=== PATIENT | male | born 1980 | race Caucasian/White ===

== ENCOUNTER 2016-12-23 10:05 | Outpatient (CLI) | payer OTHER ==
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
== END 2016-12-23 10:06 | disposition home or self-care (01) ==
LOC: TBSIIMAG 10:05
PROVIDERS: ATTEND Physician Assistant
DX: M54.9 Dorsalgia, unspecified (principal); S32.009A Unspecified fracture of unspecified lumbar vertebra, initial encounter for closed fracture; Z95.2 Presence of prosthetic heart valve
CPT/HCPCS: 72100

== ENCOUNTER 2017-02-18 14:22 | Outpatient (CLI) | payer OTHER ==
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
== END 2017-02-18 14:23 | disposition home or self-care (01) ==
LOC: TBSIIMAG 14:22
PROVIDERS: ATTEND Neurological Surgery
DX: S32.010D Wedge compression fracture of first lumbar vertebra, subsequent encounter for fracture with routine healing (principal); S32.020D Wedge compression fracture of second lumbar vertebra, subsequent encounter for fracture with routine healing
CPT/HCPCS: 72100

== ENCOUNTER 2018-04-16 10:28 | Inpatient (IN) | payer OTHER ==
[2018-04-16] MEDS ORDERED: PROPOFOL 0 ML ONE (10:35)
[2018-04-16] MEDS ORDERED: Propofol 1,000 MG/100 ML VIAL IV ONE (10:37)
[2018-04-16] MEDS ORDERED: fentaNYL Citrate/PF 2,000 MCG in Sodium Chloride 0.9% 60 ML IV SCH (10:40)
[2018-04-16 10:48] LABS: Lavender RECEIVED; Red RECEIVED
[2018-04-16 11:02] LABS: Actual Bicarbonate (HCO3a) 14.6 mEq/L (22-28); Analyzer IN Cardio ER; Base Excess (BEa) -11.2 mEq/L (-2.0 to +3.0); CO2 Tension 31.9 mmHg (35.0-45.0); Calcium, Ionized 1.09 mmol/L (1.12-1.30); Carboxyhemoglobin (COHb) 0.3 gm% (0.0-3.0); Hemoglobin (Hb) 7.6 g/dL (14.0-18.0); O2 Tension (PaO2) 102.2 mmHg (80.0-100.0); Potassium - ABG Lab 4.36 mmol/L (3.70-5.30); pH, Arterial 7.28 (7.35-7.45)
[2018-04-16] MEDS ORDERED: Lorazepam 2 MG/ML VIAL ONE ×2 (11:05→11:15)
[2018-04-16] MEDS ORDERED: Pantoprazole 40 MG VIAL ONE (11:05)
[2018-04-16 11:09] LABS: ALV-art Gradient 178.775 (0-20); Puncture Site RFA
--- NOTE | 2018-04-16 11:13 | RAD ---
PORTABLE CHEST: HISTORY: Intubation. FINDINGS: Heart size is enlarged. There are postop sternotomy change seen. The endotracheal tube is present. The tip is at the level of the kat, directed into the right mainstem bronchus. It needs to be re tracted slightly. The pulmonary vessels are engorged with some increased perihilar markings, suggest ing some element of edema. NG tube is below the hemidiaphragm. IMPRESSION: 1. Cardiomegaly with pulmonary vascular engorgement and findings suggesting some element of edema. 2. Postoperative sternotomy change and valve replacement. 3. Endotracheal tube directed into the proximal right mainstem bronchus. This needs to be retracted slightly. POS: [facility]
[2018-04-16] MEDS ORDERED: levETIRAcetam In NaCl (Iso-Os) 1,000 MG in Premix Bag 1 BAG IVPB SCH (11:30)
[2018-04-16] MEDS ORDERED: levETIRAcetam 500 MG/100 ML PREMIX BAG ONE (11:46)
[2018-04-16 11:54] LABS: PTT 97.9 SEC (22.9-36.1); Prothrombin Time 75.6 SEC (12.0-14.7)
[2018-04-16 11:57] LABS: INR-International Normal Ratio 9.4
[2018-04-16] MEDS ORDERED: HUM PROTHROMBIN CPLX IV SCH (12:00)
[2018-04-16] MEDS ORDERED: ADMIXTURE FEE IV SCH (12:00)
[2018-04-16] MEDS ORDERED: [UNRECOGNIZED DRUG - OTHER] IV SCH (12:00)
[2018-04-16] MEDS ORDERED: Phytonadione 10 MG/ML AMP SLOW IVP SCH (12:00)
[2018-04-16 12:07] LABS: CKMB 3.2 ng/mL (0-6.6)
[2018-04-16 12:07] LABS: Acetaminophen Less than 6.0 mcg/mL (10.0-30.0); Alcohol Less than 10 mg/dL (Less than 10); Salicylate Less than 8.0 mg/dL (15.0-30.0)
[2018-04-16 12:23] LABS: Cocaine Metabolite Screen Not Detected (NotDetected); Medtox Reader # READER 4; Methamphetamine Not Detected (NotDetected); Opiate Screen Detected (NotDetected); Phencyclidine (PCP) Not Detected (NotDetected); THC/Cannabinoid Screen Not Detected (NotDetected)
[2018-04-16 12:24] LABS: Amphetamine Detected (NotDetected); Barbiturates Screen Not Detected (NotDetected); Benzodiazepine Screen Not Detected (NotDetected); Medtox Control Line Valid? VALID (VALID); Methadone Not Detected (NotDetected); Oxycodone Screen Not Detected (NotDetected); Tricyclic Screen Not Detected (NotDetected)
--- NOTE | 2018-04-16 13:15 | CT ---
CT HEAD NONCONTRAST: CLINICAL HISTORY: Endocarditis. The patient is anticoagulated. Seizure activity is reported. COMPARISON: 08/25/2016 FINDINGS: There is an acute parenchymal hemorrhage centered at the posterior right temporal lobe and at the occ ipital lobe, with cortical and subcortical distribution and underlying vasogenic edema. There is dif fuse subarachnoid hemorrhage. A mild component of intraventricular hemorrhage is seen, layering with in the occipital horns. No significant midline shift. There are foci of white matter hypoattenuatio n of the bilateral cerebral hemispheres, likely gliosis. Additional punctate sites of parenchymal hy perdensity indicate additional micro-hemorrhages. There is vasogenic edema at the left frontal lobe with cortically based hemorrhage demonstrated. There is a cavitary lacunar infarction of the left th alamus, which has developed since the prior exam. IMPRESSION: Multifocal parenchymal hemorrhage with vasogenic edema, as well as diffuse subarachnoid, and intraven tricular hemorrhage. Findings favor septic emboli, given the patient's history, along with anticoagu lated state. Given the degree of parenchymal hemorrhage and edema, recommend neurosurgical evaluatio n for further care. Short-term imaging followup is also warranted. Telephone call to ER physician, Violeta Roberts M.D., was placed at 1240 hours, 04/16/2018. CODE CR POS: [facility]
--- NOTE | 2018-04-16 13:19 | CT ---
ABDOMEN AND PELVIS CT WITH IV CONTRAST: Entered contrast not administered per ordering physician request which limits evaluation of the bowel . INDICATION: GI bleed with leukocytosis and altered mental status. FINDINGS: There are dense areas of airspace consolidation containing air bronchograms of the bilateral lower lo bes with surrounding alveolar and interstitial density. Punctate nodularity is also seen within the imaged inferior pulmonary parenchyma, nonspecific and incompletely assessed. A prominent degree of s treak artifact emanates from a valvular prosthesis of the mitral valve region. There is a traversing enteric catheter partially visualized coursing to the lateral left mid abdomen. The bowel is not re liably evaluated without enteric contrast administration. Abnormal increased density along the right iliac chain is present suggestive of hematoma with adjacent moderate free pelvic fluid. There is pa tient motion which also distorts the bowel. Portions of the unopacified underdistended colon do sugg est wall prominence and, therefore, the possibility of colitis cannot be excluded on the basis of thi s exam. There are overlying prominent inguinal lymph nodes, right greater than left. Mild fullness of each renal collecting system is seen. There is generalized mild heterogeneity of the bilateral re nal parenchyma, although there is prominent streak artifact of the abdomen which does limit sensitivi ty of the evaluation. There is marked lobularity of the spleen which overall has increased in volume , nonspecific. abdominal aorta is normal in caliber. The urinary bladder contains a Beckett catheter with intraluminal air density. Fat stranding of the pelvis is present adjacent the above-described density about the right iliac vasculature suggestive of edema/hematoma. Focal lucency is seen within the L2 vertebral body. There is mild superior end plate irregularity of L1. IMPRESSION: 1. Prominent bibasilar densities containing air bronchograms favoring sequelae from aspiration pneum onitis. There is punctate nodularity at the imaged lower pulmonary parenchyma. Recommend continued followup in this regard. 2. Heterogeneity of the kidneys. The possibility of pyelonephritis or alternatively sequelae from e mbolic phenomenon with subsequent small infarcts not excluded. Correlate clinically. 3. Moderate-sized hematoma of the right iliac vasculature with adjacent pelvic fat stranding and mod erate free pelvic fluid. Correlate for recent vascular access or alternatively spontaneous hematoma. 4. Inguinal adenopathy, right greater than left. 5. Additional details are described above. POS: [facility]
[2018-04-16] MEDS ORDERED: Acetaminophen 325 MG Suppository ONE (13:37)
--- NOTE | 2018-04-16 13:58 | CON ---
DATE OF CONSULTATION: HISTORY OF PRESENT ILLNESS: Mr. Cleveland is a 37-year-old man on a transfer from [place] for altered mental status, sepsis, and likely GI bleed. He has a history of seizure disorder, methamphetamine use, and cardiac vegetations, with bilateral [id number] amputations. Neurosurgery was consulted for CT of the head after repeated seizure activity was witnessed, that reveals diffuse superficial subarachnoid hemorrhage with areas of punctate intracerebral hemorrhage as well as the more focal area of larger intraparenchymal hemorrhage in the right occipital lobe and left frontal lobe. There is also evidence of left occipital parietal subdural hematoma, very thin depth. He is reported to have an INR of 9 and is known to be on Coumadin for history of cardiac vegetations. This is very much likely the reason for his hemorrhages and also likely at least partially the cause of his tachycardia and seizure activity. He has already been loaded on Keppra and already been reversed. INR repeat is pending. The patient at bedside, is in the middle of receiving a central line, so I am unable to obtain a neurologic examination. ER physician states the patient was spontaneously moving all four extremities, but not to command and was not interactive. He then was intubated for threatened airway. Neurosurgery's recommendation is that of correction of his coagulopathy drug induced with no surgical intervention. We will repeat a head CT later this evening, but other than that, he will need extensive medical care per primary team's recommendations. Job ID: [id number]
[2018-04-16] MEDS ORDERED: Piperacillin/Tazobactam 3.375 GM VIAL ONE (14:06)
[2018-04-16 14:20] LABS: INR-International Normal Ratio 2.9
[2018-04-16] MEDS ORDERED: ISOVUE-370 76%-LOCM 1 ML ONE (14:50)
[2018-04-16 14:55] LABS: Hemoglobin 9.8 g/dL (14.0-18.0); Mean Corpuscular HGB CONC 33.4 g/dL (32.0-36.0); Mean Corpuscular Hemoglobin 28.3 pg (27.0-31.0); Mean Corpuscular Volume 84.9 fL (78.0-98.0); Mean Platelet Volume 8.8 fL (7.4-10.4); Platelet Count 146 thou/uL (130-400); RBC Distribution Width 14.3 % (11.5-14.5); Red Blood Cell (RBC) Count 3.47 mill/uL (4.70-6.10); White Blood Cell (WBC) Count 31.9 thou/uL (4.8-10.8)
[2018-04-16] MEDS ORDERED: Multivitamins, Adult 10 ML, Thiamine HCl 100 MG, Folic Acid 1 MG in Dextrose 5 %-0.45 %... IV SCH (15:00)
[2018-04-16 15:08] LABS: Anion Gap 15 mmol/L (10-20); BUN (Urea Nitrogen) 28 mg/dL (8.9-20.6); Calc. Creatinine Clearance 0 mL/min (70-130); Calcium 7.4 mg/dL (7.8-10.44); Carbon Dioxide 14 mmol/L (22-29); Chloride 108 mmol/L (98-107); Estimated GFR-MDRD 75; Glucose 196 mg/dL (70-105); Magnesium 1.5 mg/dL (1.6-2.6); Phosphorus 3.6 mg/dL (2.3-4.7); Potassium 4.2 mmol/L (3.5-5.1); Sodium 133 mmol/L (136-145)
[2018-04-16] MEDS ORDERED: Cefepime 2 GM in Sodium Chloride 0.9% 100 ML IVPB SCH ×2 (15:15→22:00)
[2018-04-16 15:17] LABS: Band 53 % (5-11); MDiff Complete? YES; Metamyelocyte 1 % (0-0); Myelocyte 1 % (0-0); Neutrophil 45 % (42-75); Platelet Morphology Comment Appears Adequate
[2018-04-16] MEDS ORDERED: SYSTANE 3.5 GM TUBE EA EYE PRN (15:33)
[2018-04-16] MEDS ORDERED: Norepinephrine 8 MG/0.9% NS 250 ML IVPB PRN (15:33)
[2018-04-16 15:39] LABS: Actual Bicarbonate (HCO3a) 13.4 mEq/L (22-28); Analyzer IN Cardio ER; Base Excess (BEa) -9.2 mEq/L (-2.0 to +3.0); Calcium, Ionized 1.11 mmol/L (1.12-1.30); Carboxyhemoglobin (COHb) 0.2 gm% (0.0-3.0); Hemoglobin (Hb) 10.1 g/dL (14.0-18.0); O2 Tension (PaO2) 101.4 mmHg (80.0-100.0); Potassium - ABG Lab 4.18 mmol/L (3.70-5.30); pH, Arterial 7.43 (7.35-7.45)
[2018-04-16 15:40] LABS: CO2 Tension 20.5 mmHg (35.0-45.0)
[2018-04-16 15:41] LABS: ALV-art Gradient 94.005 (0-20); Puncture Site RBA
[2018-04-16] MEDS ORDERED: ABX IVPB PRN (15:42)
[2018-04-16] MEDS ORDERED: Ventilator Sedation Protocol 1 EACH FS SCH (15:45)
[2018-04-16 15:47] LABS: Lactic Acid 1.3 mmol/L (0.5-2.2)
[2018-04-16] MEDS ORDERED: Lorazepam 2 MG/ML VIAL SLOW IVP PRN (15:57)
[2018-04-16] MEDS ORDERED: DISCONTINUE PREVIOUS NARCOTIC PAIN MEDICATIONS AND BENZODIAZEPINES FS SCH (15:57)
[2018-04-16] MEDS ORDERED: Propofol BOLUS 1,000 MG/100 ML VIAL IV PRN (15:57)
[2018-04-16] MEDS ORDERED: Morphine 2 MG/ML SYRINGE SLOW IVP PRN (15:57)
[2018-04-16] MEDS ORDERED: Fentanyl BOLUS 250 ML IVPB PRN (15:57)
--- NOTE | 2018-04-16 16:21 | CON ---
DATE OF CONSULTATION: 04/16/2018 SERVICE: Pulmonary Medicine. REASON FOR CONSULT: ICU patient. HISTORY OF PRESENT ILLNESS: The patient is a 37-year-old white male with past medical history significant for IV drug abuse. He had a remote episode of endocarditis several years ago. Because of this, he ended up being put on multiple pressors. The pressors actually could cause ischemia to his bilateral lower extremities and ended up with bilateral lower extremity amputations below the knees. For the endocarditis, he had to have his aortic valve replaced. Ultimately, he was subsequently discharged from the hospital, and had a protracted recovery. Eventually, he got back to some stable constant state. On this occasion, he presented to an Outside Hospital Emergency Department. He was having some seizures. He was subsequently transitioned here. He was intubated because his respiratory rates were in the 40s. No history can be obtained from the patient himself. He lives alone. PAST MEDICAL HISTORY: 1. History of endocarditis. 2. Polysubstance drug abuse. 3. Chronic low back pain. 4. Attention deficit disorder. PAST SURGICAL HISTORY: 1. Aortic valve replacement with mechanical valve. 2. Below-knee amputations, bilateral. FAMILY HISTORY: Noncontributory. SOCIAL HISTORY: He uses alcohol, illicit drugs, and tobacco products. He has previously been positive for opiates (this is likely a prescription), amphetamines, cannabinoids, and benzodiazepines. ALLERGIES: NO KNOWN DRUG ALLERGIES. MEDICATIONS: List of his inpatient medications was reviewed. Several updates were made. REVIEW OF SYSTEMS: Cannot be obtained as the patient is currently intubated and sedated. PHYSICAL EXAMINATION: VITAL SIGNS: Temperature 101, pulse 120, respirations 32, and saturation 100% on 40% FiO2. HEENT: Normocephalic and atraumatic. Sclerae are white. Conjunctivae are pink. Oral mucosa is moist without lesions. He is profusely diaphoretic. HEART: Tachycardiac. Regular. LUNGS: Excellent air entry. There is no prolonged expiratory phase or wheezing appreciated. ABDOMEN: Soft. It is fairly firm. There is no rebound or guarding noted. Bowel sounds are absent. GENITOURINARY: Beckett catheter in place. NEUROLOGIC: This cannot be evaluated well because of the patient's encephalopathy, and requirements for sedating medications. He does have pupils that are equal, round, and reactive. He has been witnessed to move everything based on what I am told. MUSCULOSKELETAL: No cyanosis or clubbing. There is no pitting anywhere. He has bilateral below-knee amputations. LABORATORY DATA: WBC 32, hemoglobin 9.8, and platelets 146,000 and downtrending. Band count is 53%. INR 2.9. PH of 7.28, pCO2 of 32, and pO2 of 102 corresponding to a saturation of 96%. Creatinine 1.1 and downtrending, BUN 28, anion gap 15, bicarb 14, and sodium 133. Phosphorus 3.6. Troponin 0.074. Liver function studies are essentially unremarkable except for an alkaline phosphatase that is minimally elevated. CK 117. Initial lactate 6.2. Urine drug screen is positive for amphetamine and opiates. Cultures are currently pending. IMAGING DATA: 1. Echocardiogram demonstrates a 20% ejection fraction. The left atrium is moderately dilated. Mechanical aortic valve is noted. There is mitral regurgitation, which is mild. Vegetation cannot be excluded on the basis of this exam. 2. CT of the brain demonstrates multifocal parenchymal hemorrhage with vasogenic edema as well as diffuse subarachnoid and intraventricular hemorrhage. Findings favor septic emboli. 3. CT of the abdomen and pelvis demonstrates bibasilar densities containing air bronchograms consistent with pneumonitis. Punctate nodularity in the pulmonary parenchyma, heterogeneous liver lesions, and possible pyelonephritis. Hematoma of the right iliac vasculature with adjacent fat stranding. Inguinal adenopathy, right greater than left. ASSESSMENT: 1. Severe sepsis, secondary to suspected recurrent endocarditis. 2. History of IV drug abuse. 3. Acute kidney injury. 4. Disseminated intravascular coagulation, suspected. 5. Seizure disorder. 6. Multisystem organ dysfunction. 7. History of mechanical aortic valve. DISCUSSION AND PLAN: We will put the patient on empiric antibiotics that should cross the blood brain barrier. Once his INR is down, an LP will need to be considered. We will trend lactate through time. The patient will be followed neurologically. If there is any significant deterioration in condition, we will get a stat CT of the head. That being said, if all goes well from a neurologic perspective, we will simply repeat one tomorrow morning. I will get a DIC panel and a peripheral smear. This patient is critically ill. There is a very good chance that he will not be surviving this hospital stay. Multiple adjustments have been made to the ventilator. Pulmonary/Critical Care will continue to follow along. CRITICAL CARE TIME: 30 minutes. Job ID: [id number] MTDD
--- NOTE | 2018-04-16 16:42 | RAD ---
SUPINE PORTABLE CHEST: Date: 04/16/18 HISTORY: Sepsis. ICU follow-up. COMPARISON: Film from earlier today. FINDINGS: ET tube has been retracted and is now above kat. NG tube remains in place. Central line has been p laced and tip overlies the right atrium. There is left basilar atelectasis and/or infiltrate. Mild pe rihilar haziness may represent mild edema. Mild vascular prominence. Postop sternotomy change. IMPRESSION: Left basilar atelectasis and/or infiltrate and perihilar haziness. POS: [facility]
[2018-04-16] MEDS ORDERED: Pantoprazole 40 MG in Sodium Chloride 0.9% 10 ML IVP SCH (16:45)
[2018-04-16 17:15] LABS: Bilirubin Negative (Negative); Blood, Urine Large (Negative); Clarity CLEAR (Clear); Glucose, Urine (Dipstick) 250 mg/dL (Negative); Leukocyte Negative (Negative); Nitrite Negative (Negative); Protein, Urine (Dipstick) Trace mg/dL (Neg-Trace); Specific Gravity, Urine 1.036 (1.002-1.036); Urobilinogen 0.2 mg/dL (0.2-1.0); pH, Urine 5.5 (5.0-9.0)
[2018-04-16 17:19] LABS: Bacteria/HPF None Seen HPF (None Seen); Hyaline Casts/LPF 0-3 HYALINE CAST LPF (0-3 Hyaline); Pathc Cast-AUWi Flag 0.87 (0-2.49); RBC/HPF GREATER THAN 50-TNTC HPF (0-3); Squamous Epithelial 0-3 HPF (0-3)
[2018-04-16] MEDS: Ampicillin 2 GM in Sodium Chloride 0.9% 100 ML IVPB SCH ×2 (17:21→20:52)
[2018-04-16] MEDS: Meropenem 2 GM in Sodium Chloride 0.9% 100 ML IVPB SCH (17:21)
[2018-04-16 17:22] LABS: Renal Epithelial None Seen HPF (0-3); Transitional Epithelial NONE SEEN HPF (0-3)
[2018-04-16 18:13] LABS: Hemoglobin 9.6 g/dL (14.0-18.0); Mean Corpuscular HGB CONC 32.4 g/dL (32.0-36.0); Mean Corpuscular Volume 86.5 fL (78.0-98.0); Mean Platelet Volume 9.2 fL (7.4-10.4); Platelet Count 150 thou/uL (130-400); RBC Distribution Width 14.4 % (11.5-14.5); Red Blood Cell (RBC) Count 3.44 mill/uL (4.70-6.10)
[2018-04-16 18:18] LABS: Fibrinogen 482 mg/dL (253-463)
[2018-04-16 18:19] LABS: D-Dimer Test 0.63 *mcg/mL (0.27-0.43); PTT 64.6 SEC (22.9-36.1); Prothrombin Time 50.8 SEC (12.0-14.7)
[2018-04-16 18:23] LABS: INR-International Normal Ratio 5.6
[2018-04-16 18:32] LABS: FSP-Qualitative Normal (Normal)
[2018-04-16 18:34] LABS: ALT (SGPT) 13 U/L (8-55); AST (SGOT) 28 U/L (5-34); Albumin 2.5 g/dL (3.5-5.0); Alkaline Phosphatase 94 U/L (40-150); Anion Gap 15 mmol/L (10-20); Anisocytosis SLIGHT = 6-15 cells (100X) (0-5/hpf); BUN (Urea Nitrogen) 24 mg/dL (8.9-20.6); Band 29 % (5-11); Bilirubin, Total 0.8 mg/dL (0.2-1.2); Calc. Creatinine Clearance 79 mL/min (70-130); Calcium 7.7 mg/dL (7.8-10.44); Carbon Dioxide 15 mmol/L (22-29); Chloride 109 mmol/L (98-107); Estimated GFR-MDRD 79; Globulin 2.8 g/dL (2.4-3.5); Glucose 194 mg/dL (70-105); Lymphocytes 2 % (21-51); MDiff Complete? YES; Metamyelocyte 1 % (0-0); Monocytes 1 % (0-10); Neutrophil 67 % (42-75); Platelet Morphology Comment Appears Adequate; Potassium 4.2 mmol/L (3.5-5.1); Protein, Total 5.3 g/dL (6.0-8.3); Sodium 135 mmol/L (136-145)
--- NOTE | 2018-04-16 18:52 | CON ---
DATE OF CONSULTATION: 04/16/2018 REASON FOR CONSULT: GI bleeding. HISTORY OF PRESENT ILLNESS: Mr. Cristian Cleveland is a 37-year-old who is admitted to this hospital in transfer from [place], re-presented this morning and brought by EMS. Apparently, the mother states he was found down in his house with incontinent stool and feces. He was felt to have a GI bleed, given 2 units of blood, some Rocephin and an IV placed and was transferred here. Apparently, per the nurse, the patient began seizing on the way here was given Ativan, here was intubated on arrival and given seizure medication. Here, he has been given 3 more units of O-negative blood. His INR from 8:40 came back greater than 150 and his PTT was greater than 239. He was given Kcentra. At 11:36, his INR was 9.4. Unfortunately, his INR is down to 2.9 at 12:55. Other eventful event here is he was given 3 L of fluid when he came in. He was given 3 units of blood and Kcentra. He has been given vancomycin, Rocephin, and Zosyn. He did have blood cultures drawn, but those were apparently drawn after the antibiotics were given in [place]. His pH on arrival was 7.43 at 7:10, 7.28 at 10:50. Lactic acid 6.2. Albumin is 3.2, protein 7. CK 117. He has not had a followup H and H since his blood transfusions. The nurse notes looking at his NG tube, less than 100 mL out and he has had no bowel movements here. The family states that he lives alone. He had endocarditis about 3 or 4 years ago apparently at this hospital and was ultimately transferred to [place], where he ended up with bilateral BKAs secondary to that infection and replacement of both his aortic and mitral valve they report. He is dependent on narcotic pain medications. He does continue to drink alcohol. They are not sure how much, but think it is significant and when asked about drug use, they are not certain but they suspect in fact one thing they noted when asked directly that they figured he probably did use IV drugs. PAST MEDICAL HISTORY: Chronic low back pain, ADD. PAST SURGICAL HISTORY: 1. Bilateral ureteral implant at [facility] as an . 2. Prior endocarditis. 3. Prior septic emboli to the spleen causing it to need to be removed. 4. BKA. MEDICATIONS: At home, apparently takes fentanyl for pain. He takes ADD medications. He takes sleep aids. He takes antianxiety pills. None of those are here with him. Present medications: 1. Protonix. 2. Zosyn. 3. Vancomycin. 4. Rocephin. 5. Vitamin K which has been given. 6. Levetiracetam. 7. Keppra. 8. Ativan. ALLERGIES: NONE KNOWN. SOCIAL HISTORY: Positive for drugs and alcohol. PHYSICAL EXAMINATION: VITAL SIGNS: Pulse in the 130s continuously. Blood pressure is 110-120 over 80s. SKIN: He is diaphoretic and pale. Conjunctivae and sclerae are pale. There is no icterus. Skin is clammy to the touch and is diaphoretic from his face down to his chest. NEUROLOGIC: He is nonresponsive, hyperreflexic on exam. LUNGS: Clear. HEART: Sinus tachycardia. No murmurs or mechanical sounds could be heard. EXTREMITIES: Reveal BKAs. I see no overt splinter hemorrhages in his fingers, but he has some petechiae. LABORATORY DATA: At 8:40, [place] white count was [address], hemoglobin of 6.4, MCV of 78, and platelet count of 214. INR as per HPI, presently 2.9. Chemistries as per HPI. Toxicology positive for opiates, positive for amphetamine, negative for salicylates, negative for acetaminophen, alcohol less than 10. ASSESSMENT: 1. This 37-year-old gentleman who came in, I have been asked to see regard to some melena, apparently found down at home with that and also has a little bit of return of old blood from his OG tube. He presented with a hemoglobin around 5 at an outside facility, it was 6.4 on arrival here after 2 units of blood at the outside facility. He has received 3 units of blood since then. He has had no overt bleeding since arrival here. He was found on unclear how much bleeding he was having prior to arrival here. He has not had any bleeding before per the family. His INR was undetectable on arrival, however. This has been subsequently being worked and being corrected. He seems stable from a bleeding standpoint. He was started on a PPI. He has multiple risk factors for reason for having ulcers. He does have a normal platelet count and does not appear to have portal hypertension. However, I suspect bleeding is mostly related to severe coagulopathy. 2. Shock on arrival. This seems to have probably been more related to septic shock than hemorrhagic, but it could be a combination of both. I say this patient likely still has gross shivering fever, leukocytosis, and acidosis and not showing any signs of active bleeding and has had good urine output of over 1 L since being here going against hemorrhagic shock. He has been cultured. Unfortunately antibiotics were started with Rocephin before cultures were obtained there the nurse tells me. He has had endocarditis before resulting in severe septicemia, splenectomy, and BKAs. 3. Seizures on arrival, respiratory failure on arrival. The family does note he has a history of seizures in the past. He denies any history of alcohol withdrawals. 4. History of drug use including IV. RECOMMENDATIONS: 1. IV Protonix drip. 2. Vitamin K doses for three days. 3. Banana bag daily. 4. I have called Dr. Aparicio of Critical Care to come and evaluate the patient emergently as he was on critical care holding down here. 5. I have asked the nurse to stat repeat H and H, BMP, magnesium, calcium, phosphorus, and ABG. 6. At this time without any active bleeding and sepsis, we are going to hold off on endoscopy. We will follow him closely with you. If there are signs of active bleeding, I want to get his INR reversed. We can consider emergent endoscopy. Job ID: [id number]
[2018-04-16 20:08] LABS: Lactic Acid 1.2 mmol/L (0.5-2.2)
--- NOTE | 2018-04-16 20:50 | CT ---
BRAIN CT WITHOUT IV CONTRAST 04/16/18 HISTORY: Followup extensive intracranial hemorrhage. There are again noted to be extensive bilateral heterogeneous intracranial hemorrhages including suba rachnoid hemorrhage and extensive intraparenchymal hemorrhage, some of which are associated with tammy a and minimal focal mass effect. These intraparenchymal hemorrhages, particularly in the posterior fo ssa appear more dense as far as a hemorrhage is concerned when compared to the prior studies. Again n oted is a small left posterior convexity stable subdural hemorrhage. There appears to be more promine nt intraventricular hemorrhage. There appears to be more prominent or certainly more diffuse subarach noid hemorrhagic changes. Worsening fluid and mucosal changes within the sinuses. No significant kapoor ge in midline position. No evidence for significant new hemorrhage. IMPRESSION: Extensive intraparenchymal hemorrhages showing some progressive hemorrhage from prior studies as well as progressive subarachnoid hemorrhagic changes and intraventricular hemorrhagic changes with very s mall stable left posterior subdural hemorrhage. No significant change in the midline position. Contin ued short term followup. POS: [facility]
[2018-04-16] MEDS: Pantoprazole 40 MG VIAL IVP SCH (20:52)
[2018-04-16] MEDS ORDERED: Vancomycin HCl 1 GM in Premix Bag 1 BAG IVPB SCH (21:00)
[2018-04-16] MEDS: Vancomycin HCl 1.25 GM in Sodium Chloride 0.9% 250 ML 250 ML IVPB SCH (21:47)
[2018-04-16] MEDS: Sodium Chloride 0.9% (PF) 10 ML VIAL FS SCH (21:47)
--- NOTE | 2018-04-16 23:22 | HP ---
HISTORY OF PRESENT ILLNESS: Mr. Cleveland is a 37-year-old male who was complaining of some generalized malaise and also was not feeling well from the last week or so. This morning, he was noticed to be very confused. At that time, he was brought to _another ER from where he was transferred to this facility. At this facility, in the ER, he was evaluated and now was found to have GI bleeding, hypotension, and he required intubation, also he had a seizure in this ER. He has been admitted for evaluation and management. There is no family member available at the current time; however, from the nursing staff and from the ER physician, we learned the patient has a previous history of bacterial endocarditis with was complicated by bilateral below-knee amputation. He is also known to have a history of drug abuse. ALLERGIES: HE DOES NOT HAVE ANY KNOWN ALLERGY. PAST MEDICAL HISTORY: Includes chronic back ache, seizure, and he had a history of mitral valve replacement and also hypertension. PAST SURGICAL HISTORY: Remarkable for bilateral below-knee amputation as mentioned earlier and mechanical heart valve SOCIAL HISTORY: There is no history of EtOH abuse. No history of cigarette smoking, however, do have a history of substance abuse. FAMILY HISTORY: Reviewed and is not contributory. MEDICATIONS: Prior to admission, he was on, 1. Coumadin. 2. Lisinopril. 3. Verapamil. 4. Dilaudid. 5. Xanax. REVIEW OF SYSTEMS: Cannot be obtained at the current time. PHYSICAL EXAMINATION: At the current time, GENERAL: He is intubated and sedated. VITAL SIGNS: His latest vital signs show his blood pressure of 116/85, pulse rate of 121, respiratory rate of 36, temperature 100.1. HEENT: His head is normocephalic and atraumatic. Both of his pupils are about 2 mm in diameter with sluggish reaction to reaction to light. Ears and nose are normal. His is orally intubated. NECK: Supple. There is no distention of the jugular vein. No lymphadenopathy felt. Thyroid gland not palpable. There is no carotid bruit. CHEST: Symmetrical and irregular. S1 and S2. LUNGS: Clear. ABDOMEN: Soft. Bowel sounds decreased. We could not appreciate any organomegaly. LYMPH: He is status post bilateral below knee amputation. He has edema of the stump. NEUROLOGIC: He moves all extremities. LABORATORY DATA: His head CT was reported to show multi-focal parenchymal hemorrhoids with vasogenic edema as well as diffuse subarachnoid and intraventricular hemorrhoids. Chest x-ray was reported to show cardiomegaly with pulmonary vascular congestion. ET tube is in place and there are postoperative changes of a possibility change of sternotomy and also valve replacement. His latest CBC showed WBC of 31.9, hemoglobin of 9.8, hematocrit of 29.4, MCV of 84.9, platelet of 146. Chemistry and lytes done earlier show a sodium of 132, potassium of 4.2, chloride 108, CO2 of 14, BUN 28, creatinine of 1.1, glucose 196. Lactic acid was elevated at 6.2. Troponin was 0.074. Drug screen was reviewed. It showed some opiates and also amphetamines, but the patient was taking these medications. ASSESSMENT: This is a 37-year-old man with history of endocarditis which was complicated by bilateral below-knee amputation, who came in with altered mental status and seizure. In the ER, he was found to have very blood pressure and rectal bleeding consistent with hemorrhagic shock. He was also noticed to have an elevated PT with INR of 9.4. He was given vitamin K. He was transfused with RBCs. He is currently on normal saline. His WBC was elevated, raising the possibility of sepsis, however, this may be stress induced. In any case, he has been covered for sepsis. He is on broad-spectrum antibiotics. He will admitted to ICU. Further evaluation and management will depend on the course of his hospitalization and his response to therapy. He does have a past history of substance abuse. Job ID: [id number] [facility]
[2018-04-17] MEDS: Meropenem 2 GM in Sodium Chloride 0.9% 100 ML IVPB SCH ×3 (00:05→17:22)
[2018-04-17] MEDS: Ampicillin 2 GM in Sodium Chloride 0.9% 100 ML IVPB SCH ×5 (01:15→17:32)
[2018-04-17] MEDS: fentaNYL Citrate/PF 2,000 MCG in Sodium Chloride 0.9% 60 ML IV SCH ×2 (01:44→20:47)
[2018-04-17 05:55] LABS: ALT (SGPT) 12 U/L (8-55); AST (SGOT) 25 U/L (5-34); Albumin 2.2 g/dL (3.5-5.0); Alkaline Phosphatase 80 U/L (40-150); Anion Gap 11 mmol/L (10-20); BUN (Urea Nitrogen) 19 mg/dL (8.9-20.6); Bilirubin, Total 0.6 mg/dL (0.2-1.2); Calc. Creatinine Clearance 103 mL/min (70-130); Carbon Dioxide 19 mmol/L (22-29); Chloride 110 mmol/L (98-107); Estimated GFR-MDRD Greater than 90; Globulin 2.7 g/dL (2.4-3.5); Glucose 183 mg/dL (70-105); Potassium 3.6 mmol/L (3.5-5.1); Protein, Total 4.9 g/dL (6.0-8.3); Sodium 136 mmol/L (136-145)
[2018-04-17] MEDS: Vancomycin HCl 1.25 GM in Sodium Chloride 0.9% 250 ML 250 ML IVPB SCH (05:58)
[2018-04-17 06:22] LABS: Band 20 % (5-11); Hemoglobin 8.2 g/dL (14.0-18.0); Lymphocytes 6 % (21-51); MDiff Complete? YES; Mean Corpuscular HGB CONC 33.9 g/dL (32.0-36.0); Mean Corpuscular Hemoglobin 28.7 pg (27.0-31.0); Mean Corpuscular Volume 84.6 fL (78.0-98.0); Monocytes 6 % (0-10); Neutrophil 68 % (42-75); Platelet Count 149 thou/uL (130-400); Platelet Morphology Comment Appears Adequate; RBC Distribution Width 14.3 % (11.5-14.5); Red Blood Cell (RBC) Count 2.86 mill/uL (4.70-6.10); White Blood Cell (WBC) Count 17.5 thou/uL (4.8-10.8)
--- NOTE | 2018-04-17 08:07 | RAD ---
CHEST 1 VIEW: Date: 04/17/18 INDICATION: History of intubation. COMPARISON: Prior exam dated 04/16/18. FINDINGS: ET tube, gastric catheter, and right IJ central venous catheter are unchanged. Aortic valvular prosth esis is similar appearing. Mild cardiomegaly and mild pulmonary vascular congestion persist. Tiny haydee ateral pleural effusions are present. No pneumothorax is evident. IMPRESSION: Stable exam. POS: BH
[2018-04-17] MEDS: Pantoprazole 40 MG VIAL IVP SCH ×2 (08:21→20:42)
[2018-04-17] MEDS: Propofol 1,000 MG/100 ML VIAL IV PRN (08:26)
[2018-04-17 09:02] LABS: INR-International Normal Ratio 10.4
[2018-04-17] MEDS: Sodium Chloride 0.9% (PF) 10 ML VIAL FS SCH ×2 (09:02→20:43)
[2018-04-17 09:03] LABS: Prothrombin Time 81.9 SEC (12.0-14.7)
--- NOTE | 2018-04-17 10:29 | PDOC.PN ---
- Subjective Encounter Start Date: 04/17/18 Encounter Start Time: 08:40 -: Intubated, sedated. - Objective Vital Signs & Weight: Vital Signs (12 hours) Pulse Resp BP Pulse Ox 04/17/18 10:00 17 04/17/18 08:00 17 100 04/17/18 06:56 64 100/69 04/17/18 06:00 17 04/17/18 04:00 17 04/17/18 03:11 70 105/57 L 04/17/18 02:00 17 04/17/18 00:00 17 Weight Weight 130 lb 9.6 oz Most Recent Monitor Data Heart Rate from ECG 77 NIBP 114/72 NIBP BP-Mean 86 Respiration from ECG 17 SpO2 100 I&O: 04/16/18 04/17/18 04/18/18 06:59 06:59 06:59 Intake Total 2584 477 Output Total 980 410 Balance 1604 67 Result Diagrams: 04/17/18 04:55 04/17/18 04:55 Additional Labs: Accuchecks 04/16/18 04/16/18 23:54 18:04 POC Glucose 151 H 194 H Phys Exam - Physical Examination Neck: no JVD Respiratory: clear to auscultation bilateral Cardiovascular: RRR Gastrointestinal: soft Musculoskeletal: no edema (s/p bilateral BKA, due to endocarditis.) Dx/Plan (1) Sepsis Code(s): A41.9 - SEPSIS, UNSPECIFIED ORGANISM Status: Acute Plan: BxC is growing gram negative rods. Continue antibiotics. f/u cultures. f/u with ID. (2) Hypotension Status: Acute Plan: Due to hemorrhagic shock Vs sepsis. f/u Hb/Hct (3) Respiratory failure Code(s): J96.90 - RESPIRATORY FAILURE, UNSP, UNSP W HYPOXIA OR HYPERCAPNIA Status: Acute Plan: As per pulmonary.. (4) GI bleeding Code(s): K92.2 - GASTROINTESTINAL HEMORRHAGE, UNSPECIFIED Status: Acute Plan: Seen by GI. No vegetation seen on echo. f/u Hb/Hct. (5) S/P aortic valve replacement Code(s): Z95.2 - PRESENCE OF PROSTHETIC HEART VALVE Status: Acute (6) History of endocarditis Code(s): Z86.79 - PERSONAL HISTORY OF OTHER DISEASES OF THE CIRCULATORY SYSTEM Status: Acute (7) Substance abuse Code(s): F19.10 - OTHER PSYCHOACTIVE SUBSTANCE ABUSE, UNCOMPLICATED Status: Acute (8) Coagulopathy Status: Acute Plan: INR still elevated, vit K ordered. (9) Intracranial hemorrhage Code(s): I62.9 - NONTRAUMATIC INTRACRANIAL HEMORRHAGE, UNSPECIFIED Status: Acute Plan: f/u head CT. f/u with neurosurgery. - Plan -: Continue current therapy. -: f/u with consultants. * .
[2018-04-17] MEDS ORDERED: Phytonadione 10 MG/ML AMP SLOW IVP SCH (11:00)
--- NOTE | 2018-04-17 12:11 | CON ---
DATE OF CONSULTATION: REASON FOR CONSULTATION: Aortic valve replacement. HISTORY OF PRESENT ILLNESS: Mr. Cleveland is a fortunate 37-year-old gentleman, who is a patient of Dr. Petr Cantu. He has a history of aortic valve endocarditis. He was on pressor agents four years ago. He then developed bilateral ischemia and required amputation of his lower extremities. He had his aortic valve replaced. His family states he recently had stopped his Coumadin. This was restarted by a primary care physician in [place]. They did not feel he took the Coumadin appropriately. His Coumadin was markedly elevated. He also had mental status changes. He was subsequently seen and evaluated in the emergency room. He also had a urine drug screen that was positive. His mother was very distraught, says his sister found used needles in his room and is concerned about IV drug use. PAST MEDICAL HISTORY: Polysubstance abuse. He has endocarditis; ADD; status post AVR, mechanical; and bilateral BKA. SOCIAL HISTORY: As above including positive tobacco use. ALLERGIES: NONE. MEDICATIONS: He is fairly noncompliant. REVIEW OF SYSTEMS: Review of systems is unobtainable. He is currently intubated and sedated. PHYSICAL EXAMINATION: GENERAL: Patient is a pleasant gentleman. He is currently intubated and sedated. VITAL SIGNS: Blood pressure 114/72, pulse 67, and respirations 20. NEUROLOGIC: The patient is alert and oriented x3 with no focal neurologic deficits. HEENT: Sclerae without icterus. Mouth has moist mucous membranes with normal pallor. NECK: No JVD. Carotid upstroke brisk. No bruits bilaterally. LUNGS: Clear to auscultation with unlabored respirations. BACK: No scoliosis or kyphosis. CARDIAC: Regular rate and rhythm with normal aortic valve click. ABDOMEN: Soft, nontender, nondistended. No peritoneal signs present. No hepatosplenomegaly. No abnormal striae. EXTREMITIES: Bilateral BKA. SKIN: No gross abnormalities. PERTINENT LABORATORY DATA: Include a hemoglobin of 8.2, white blood cell count 17.5, platelet count of 149. INR 10.4 with PTT of 64, fibrinogen 482. D-dimer 0.63. PT of 81, creatinine 0.81. Echo Doppler showed LVEF of 20% to 25%. Aortic valve cannot completely exclude endocarditis. The patient was markedly tachycardic during this study and could not completely exclude endocarditis of the aortic valve. This was complicated by air bubbles during IV infusion. IMPRESSION: 1. ? Endocarditis. 2. Disseminated intravascular coagulation. 3. Illicit drug use. 4. Mechanical aortic valve. RECOMMENDATIONS: At this point, we have to suspect endocarditis given continued IV drug use in his presentation. I would also suspect that he has a DIC based on his coagulation factors. He also had a CT scan of the brain that suggested multifocal hemorrhage with vasogenic edema favoring septic emboli. At this point, I would recommend supportive care. I was consulted by Yanira for management of his coagulopathy, which is out of the scope of my practice. Given his aortic valve replacement, would certainly be happy to follow along. Total critical care time 35 minutes. I discussed the case with Dr. Chato Muir and family in evaluating Mr. Cleveland. Job ID: [id number]
--- NOTE | 2018-04-17 12:34 | PRG ---
DATE OF SERVICE: 04/17/2018 SERVICE: Pulmonary Medicine. INTERVAL HISTORY: The patient is doing a little bit better from a metabolic standpoint. Mentation bills, things were ever so slightly improved. That being said, he remains in a partially vegetative state. He cannot provide any additional elements of the history. He is requiring a little bit of sedation to prevent some agitation. Otherwise, there has been no interval change to his condition. His INR has actually gotten thin once again. PHYSICAL EXAMINATION: VITAL SIGNS: Afebrile currently. T-max overnight was 99.1. Pulse 97, blood pressure 121/88, respirations 13, and saturation 100% on 31% FiO2. GENERAL: The patient is sedated. He is also encephalopathic from his neurologic injury. HEENT: Normocephalic and atraumatic. Sclerae white. Conjunctivae pink. Oral mucosa is moist without lesions. LUNGS: Excellent air entry. There is some rhonchi present. No prolonged expiratory phase or crackles are appreciated. HEART: Normal rate, regular. ABDOMEN: Soft, nontender, and nondistended. Bowel sounds are positive. MUSCULOSKELETAL: No cyanosis or clubbing. No pitting in the bilateral lower extremities. NEUROLOGIC: His pupils are equal, round, and reactive. He is comfortably overbreathing in the ventilator. He is spontaneously and purposefully moving his right upper extremity and right lower extremity. He withdraws aggressively from noxious stimuli in the left lower extremity. With left upper extremity, he has to have a deep pain in order to move his left upper extremity. Strength is good on the right side of his body and poor on the left side of his body. LABORATORY DATA: WBC 17.5, hemoglobin 8.2, platelets 149,000 and roughly stable. Band count 20%. INR has increased to 10.4 once again. Basic metabolic profile and liver function studies are essentially unremarkable. His creatinine is 1.81 and downtrending gently. Lactate is cleared completely. Urinalysis is positive for red blood cells and small amounts of white blood cells. Blood cultures x2 are growing gram-negative rods. IMAGING: Chest x-ray demonstrates endotracheal tube is in a good position. There is a right IJ central venous catheter terminating in the right atrium. There is no acute pulmonary abnormality otherwise identified. The heart is generous in size and there is a slightly enlarged carinal angle suggestive of mediastinal lymphadenopathy or left atrial enlargement. ASSESSMENT: 1. Severe sepsis secondary to suspected recurrent endocarditis. 2. Bacteremia. 3. History of intravenous drug abuse, methamphetamine positive on urine drug screen. 4. Acute kidney injury, resolved. 5. Seizure disorder on presentation. 6. History of mechanical aortic valve. 7. Multiple inflammatory foci with hemorrhagic changes in the brain. 8. Acute systolic heart failure. DISCUSSION AND PLAN: We will continue to give the patient antibiotics and give him good supportive care. I will give him 4 of FFP. I will drop the rate on the ventilator slightly as he has cleared his inflammatory profile. I will continue our antiepileptic drug and other supportive measures. At this point, the biggest question that we have moving forward is whether or not there is going to be severe permanent injury to the brain associated with these hemorrhagic lesions. Once the dust settles, we can consider an LP. That being said, under the current circumstances, it would not be safe to perform. Infectious Disease consultation will be placed, so they can help us identify an appropriate length of antibiotic therapy once we identify an organism. Critical care time: 30 minutes. Job ID: [id number] MTDD
[2018-04-17 12:43] LABS: HBCM Index 0.34 S/CO (0-0.79); HBSAg Index 0.18 S/CO (0-0.99); HIV (1/2) Antibody/Antigen Non-Reactive (NonReactive); HIV 1/2 INDEX 0.12 S/CO (<1.00); Hep A IgM AB Non-Reactive (NonReactive); Hep A IgM S/CO 0.25 S/CO (0-0.79); Hep B Surf Ag Non-Reactive S/CO (NonReactive); Hep C IgG Ab Non-Reactive (NonReactive); Hep C Index 0.27 S/CO (0-0.79); Hepatitis B Core IgM Abs Non-Reactive (NonReactive)
[2018-04-17 16:58] LABS: INR-International Normal Ratio 1.6; Prothrombin Time 19.1 SEC (12.0-14.7)
[2018-04-17] MEDS: Multivitamins, Adult 10 ML, Folic Acid 1 MG, Thiamine HCl 100 MG in Dextrose 5 %-0.45 %... IV SCH (17:23)
--- NOTE | 2018-04-17 18:36 | PRG ---
DATE OF SERVICE: 04/17/2018 SUBJECTIVE: Mr. Cleveland is intubated, remains in the ICU. Nurse's note no episodes of bleeding. He has had no overt seizures overnight. Blood cultures are growing gram-negative rods in 2 specimens. He is not requiring pressors. Neurosurgery is following along with regard to his intracranial hemorrhage has decided to observe him. The patient's INR went back from 5.6 to 10.4. There are no signs of DIC. I have talked with the bet taker, he feels that possibly the patient overdosed on his Coumadin, although it is impossible to know with any accuracy. MEDICATIONS: 1. DuoNeb. 2. Ampicillin. 3. Levetiracetam. 4. Ativan p.r.n. 5. Meropenem. 6. Protonix 40 mg q.12. 7. IV fluids. OBJECTIVE: VITAL SIGNS: T-max 99, pulse 59, and blood pressure 110/76. GENERAL: He is intubated, resting in bed, is sedated. HEENT: Conjunctivae are pale. Sclerae are clear. LUNGS: Clear. HEART: Sinus tachycardia. Regular rate and rhythm. No mechanical valve click. ABDOMEN: Soft and nontender without hepatosplenomegaly. EXTREMITIES: Bilateral BKA. LABORATORY DATA: INR 10.4. White count 17,000, hemoglobin 8.2, and platelet count 149. PH is 7.43 this morning. Sodium 136, potassium 3.6, chloride 110, bicarb is 19, BUN and creatinine of 19 and 0.81. Liver function tests are normal. Protein is 4.9, albumin is 2.2. Hepatitis A, B, C, and HIV all negative. ASSESSMENT: 1. Gastrointestinal hemorrhage was noted on presentation. He received 3 units of blood here 2 at outside facility and FFP and Kcentra for coagulopathy. He shows no signs of active bleeding and I suspect he had just diffuse gastrointestinal oozing with regard to his INR and PTT that were undetectable on presentation. 2. Presentation with what appeared to be sepsis. He is growing out gram-negative in his blood. Concern for endocarditis exists as he has mechanical valves and there is suspicion that he thought he was using IV illicit drugs. 3. Coagulopathy. There are no signs of disseminated intravascular coagulation. He has normal fibrin split products, normal platelets, normal fibrin levels. This looks more like an overdose on warfarin as he was corrected. Now, his INR is going back down and he has no signs of disseminated intravascular coagulation or sepsis. 4. Seizure disorder. 5. Intracranial bleed. RECOMMENDATIONS: 1. I would agree with Dr. Muir as I have talked to him about giving FFP to reverse his INR, especially with his history of intracranial bleed. 2. We will continue IV PPIs. 3. We will continue to monitor his hemoglobin closely and other labs. We will put him on vitamin K daily. 4. I will give this patient a banana bag daily in light of history of substance abuse and then probably very poor nutrition. Job ID: [id number]
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
[2018-04-18] MEDS: Meropenem 2 GM in Sodium Chloride 0.9% 100 ML IVPB SCH ×4 (00:14→23:47)
[2018-04-18 05:25] LABS: ALT (SGPT) 18 U/L (8-55); AST (SGOT) 30 U/L (5-34); Albumin 2.5 g/dL (3.5-5.0); Alkaline Phosphatase 75 U/L (40-150); Anion Gap 10 mmol/L (10-20); BUN (Urea Nitrogen) 14 mg/dL (8.9-20.6); Bilirubin, Total 0.9 mg/dL (0.2-1.2); Calc. Creatinine Clearance 123 mL/min (70-130); Calcium 8.2 mg/dL (7.8-10.44); Carbon Dioxide 24 mmol/L (22-29); Chloride 110 mmol/L (98-107); Estimated GFR-MDRD Greater than 90; Globulin 2.8 g/dL (2.4-3.5); Glucose 128 mg/dL (70-105); Potassium 3.5 mmol/L (3.5-5.1); Protein, Total 5.3 g/dL (6.0-8.3); Sodium 140 mmol/L (136-145)
[2018-04-18] MEDS: Propofol 1,000 MG/100 ML VIAL IV PRN ×3 (05:27→20:30)
[2018-04-18 06:00] LABS: Hemoglobin 7.6 g/dL (14.0-18.0); Mean Corpuscular HGB CONC 33.4 g/dL (32.0-36.0); Mean Corpuscular Hemoglobin 28.6 pg (27.0-31.0); Mean Corpuscular Volume 85.6 fL (78.0-98.0); Mean Platelet Volume 8.8 fL (7.4-10.4); Platelet Count 188 thou/uL (130-400); RBC Distribution Width 14.6 % (11.5-14.5); Red Blood Cell (RBC) Count 2.67 mill/uL (4.70-6.10); White Blood Cell (WBC) Count 17.2 thou/uL (4.8-10.8)
[2018-04-18] MEDS ORDERED: Phytonadione 10 MG in Sodium Chloride 0.9% 50 ML IVPB SCH (06:00)
[2018-04-18 06:10] LABS: Band 17 % (5-11); Lymphocytes 6 % (21-51); MDiff Complete? YES; Monocytes 7 % (0-10); Neutrophil 70 % (42-75); Platelet Morphology Comment Appears Adequate
[2018-04-18 08:20] LABS: INR-International Normal Ratio 1.3; Prothrombin Time 16.3 SEC (12.0-14.7)
--- NOTE | 2018-04-18 08:29 | PRG ---
DATE OF SERVICE: 04/18/2018 SERVICE: Pulmonary Medicine. INTERVAL HISTORY: The patient is doing fine from respiratory standpoint. He is breathing very comfortably. He is moving his right arm and leg purposefully. Whenever he is left alone, he will start slamming those things into the side rails in order to get some attention. That being said, he is on some sedation currently. He does withdraw apparently to noxious stimuli in the left upper and lower extremity. That being said, he is not purposely moving those things. PHYSICAL EXAMINATION: VITAL SIGNS: Afebrile currently. Pulse 56, blood pressure 112/78, respirations 18, and saturation 96% on 27% FiO2 and PEEP of 5. GENERAL: The patient is intubated and under the influence of some sedation. HEENT: Normocephalic and atraumatic. Sclerae white. Conjunctivae pink. Oral mucosa is moist without lesions. LUNGS: Decent air entry. No prolonged expiratory phase or wheezing is appreciated. Rhonchi are there, but clear with cough. HEART: Normal rate and regular. ABDOMEN: Soft, nontender, and nondistended. Bowel sounds are positive. MUSCULOSKELETAL: No cyanosis or clubbing. There is no pitting in the bilateral lower extremities. LABORATORY DATA: WBC 17.2, hemoglobin 7.6 and gently downtrending, platelets 188,000. Potassium 3.5. Basic metabolic profile and liver function studies are otherwise unremarkable. Opiate and acetaminophen levels are elevated. Hepatitis A B, C, and HIV serologies are negative. Blood cultures x2 are growing gram- negative aditya. Urine culture is unremarkable. ASSESSMENT: 1. Severe sepsis secondary to endocarditis. 2. Bacteremia secondary to gram-negative aditya, suspect Pseudomonas. 3. History of IV drug abuse with methamphetamine positive on urine drug screen. 4. Status epilepticus on presentation, resolved. 5. History of mechanical aortic and mitral valves. 6. Encephalitis secondary to likely embolic phenomenon. 7. Acute systolic heart failure. 8. Complete heart block, episodic but returned to sinus rhythm. DISCUSSION AND PLAN: We held the fentanyl which may have been causing some of his heart rate issue. We will wean this away, and wean the propofol away. We will consider making an attempt to using Precedex if he becomes agitated and requires it. Empiric antibiotics will be continued. Dr. Aj is requesting a BAKARI. This can be done before we consider him for extubation. At this point, his altered mentation prevents us from pulling his endotracheal tube. Potassium to be replaced today. I will give him the laboratory holiday in the morning. Critical care time: 30 minutes. Job ID: [id number] MTDD
--- NOTE | 2018-04-18 08:46 | PRG ---
DATE OF SERVICE: 04/18/2018 SUBJECTIVE: Mr. Cleveland remains essentially in the same state that he has been. He is moving left lower extremity in both the right upper and right lower extremities to deep pain. He is heavily sedated at present. His INR yesterday popped up to 10.4 in the midday draw and then came back down to 1.6 in the afternoon draw. This has not been repeated yet, so we will repeat an INR this morning and then we will also re-image his head tomorrow. Still no intervention from Neurosurgery. Job ID: [id number]
[2018-04-18] MEDS ORDERED: levETIRAcetam 500 MG TAB PO SCH (09:00)
[2018-04-18] MEDS: Pantoprazole 40 MG VIAL IVP SCH ×2 (09:41→20:31)
[2018-04-18] MEDS: Sodium Chloride 0.9% (PF) 10 ML VIAL FS SCH ×2 (09:43→20:31)
--- NOTE | 2018-04-18 09:54 | PDOC.PN ---
- Subjective Encounter Start Date: 04/18/18 Encounter Start Time: 10:00 -: Intubated.sedated. n 3rd degree av-block last night.. - Objective Vital Signs & Weight: Vital Signs (12 hours) Pulse Resp BP 04/18/18 07:12 56 L 112/78 04/18/18 06:00 11 L 04/18/18 04:00 11 L 04/18/18 03:41 55 L 04/18/18 02:00 10 L 04/18/18 00:00 10 L 04/17/18 23:42 62 119/68 04/17/18 22:00 10 L Weight Admit Weight 130 lb 9.6 oz Weight 128 lb 11.2 oz Most Recent Monitor Data Heart Rate from ECG 135 NIBP 148/102 NIBP BP-Mean 117 Respiration from ECG 35 SpO2 91 I&O: 04/17/18 04/18/18 04/19/18 06:59 06:59 06:59 Intake Total 2584 1820.8 Output Total 980 1290 Balance 1604 530.8 Result Diagrams: 04/18/18 04:30 04/18/18 04:30 Additional Labs: Accuchecks 04/18/18 04/17/18 04/17/18 00:51 16:43 12:57 POC Glucose 133 H 105 111 H Phys Exam - Physical Examination Neck: no JVD Respiratory: clear to auscultation bilateral Cardiovascular: RRR Gastrointestinal: soft Musculoskeletal: no edema (s/p bilateral BKA from endocarditis..) Dx/Plan (1) Sepsis Code(s): A41.9 - SEPSIS, UNSPECIFIED ORGANISM Status: Acute Comment: Blood cultures growing gram negative rods.. As per ID (2) Hypotension Status: Acute Comment: resolved.. (3) Respiratory failure Code(s): J96.90 - RESPIRATORY FAILURE, UNSP, UNSP W HYPOXIA OR HYPERCAPNIA Status: Acute Comment: as per pulmonary.. (4) GI bleeding Code(s): K92.2 - GASTROINTESTINAL HEMORRHAGE, UNSPECIFIED Status: Acute Plan: Seen by GI. Hb/Hct stable. (5) S/P aortic valve replacement Code(s): Z95.2 - PRESENCE OF PROSTHETIC HEART VALVE Status: Acute Plan: Anticoagulant on hold. f/u with cardiology. (6) History of endocarditis Code(s): Z86.79 - PERSONAL HISTORY OF OTHER DISEASES OF THE CIRCULATORY SYSTEM Status: Acute (7) Substance abuse Code(s): F19.10 - OTHER PSYCHOACTIVE SUBSTANCE ABUSE, UNCOMPLICATED Status: Acute (8) Coagulopathy Status: Acute Comment: Improved significantly. No need for vit.K today. (9) Intracranial hemorrhage Code(s): I62.9 - NONTRAUMATIC INTRACRANIAL HEMORRHAGE, UNSPECIFIED Status: Acute - Plan -: Continue antibiotics. -: f/u Hb/Hct. -: f/u with consultants. * .
--- NOTE | 2018-04-18 11:25 | PRG ---
DATE OF SERVICE: SUBJECTIVE: Mr. Cleveland's status is unchanged. Heart rate appears stable. He did develop transient third-degree AV block last evening. He is currently on antibiotic therapy. OBJECTIVE: VITAL SIGNS: Blood pressure 154/103, pulse 98, and respirations 20. LUNGS: Clear to auscultation. HEART: Regular rate and rhythm with normal systolic click. ABDOMEN: Soft, nontender, and nondistended. EXTREMITIES: Bilateral BKA. PERTINENT LABORATORY DATA: White blood cell count 17.2 and hemoglobin 7.6. Creatinine 0.67 and chloride 100. Initial INR 10.4, now 1.3. IMPRESSION: 1. Likely endocarditis. 2. Respiratory failure. 3. Illicit drug use. 4. Status post mechanical aortic valve replacement. RECOMMENDATIONS: Given his most recent echo, a poor quality, given tachycardia, he will likely need BAKARI. This was recommended by Dr. David Aj. We will schedule for next week. His family was not present to discuss the above. Otherwise from my standpoint, we will continue current medical therapy. We will continue to watch his rhythm closely. There is some concern for transient third-degree AV block. If this is true endocarditis, could mean perivalvular abscess, if it continues. At this point, the prognosis appears guarded and potentially poor. Job ID: [id number]
[2018-04-18] MEDS: Multivitamins, Adult 10 ML, Folic Acid 1 MG, Thiamine HCl 100 MG in Dextrose 5 %-0.45 %... IV SCH (14:05)
[2018-04-18] MEDS: fentaNYL Citrate/PF 2,000 MCG in Sodium Chloride 0.9% 60 ML IV SCH (15:48)
--- NOTE | 2018-04-18 18:03 | PRG ---
DATE OF SERVICE: 04/18/2018 SUBJECTIVE: Mr. Cleveland is still in the ICU. He is intubated. He has had no further bleeding. He has not moved spontaneously except for his left hand. He really does not move well. His mother and father at the bedside. I have talked with Dr. Muir about his case. The nurses report there has been no significant bleeding or melena. He has started tube feeds. MEDICATIONS: 1. DuoNeb. 2. Dexmedetomidine. 3. Fentanyl p.r.n. 4. Gentamicin. 5. Keppra. 6. Meropenem. 7. Banana bag daily. 8. Vitamin K daily. 9. Diprivan p.r.n. OBJECTIVE: VITAL SIGNS: Temperature 100.4 blood pressure 107/65. GENERAL: The patient is on the ventilator. He is intubated and sedated. ABDOMEN: Scaphoid. He has had no seizing. Bowel sounds are quiescent. LABORATORY DATA: White count 17.2, hemoglobin 7.6, platelet count 188. INR is 1.3 this morning,. A pH 7.43. Sodium 140, potassium 3.5, BUN and creatinine are 40 and 0.69. Liver function tests normal. ASSESSMENT: 1. Gastrointestinal bleed, likely secondary to coagulopathy, both resolved. 2. Intracranial hemorrhage, likely secondary to coagulopathy, resolved being followed by Neurosurgery with no evidence of extension. He has had some improved neurologic function today minimally. 3. Coagulopathy. I think he inadvertently took a lot of Coumadin. He did not have any signs of disseminated intravascular coagulation. 4. Concern for endocarditis. 5. Respiratory failure. 6. Prior mechanical valve replacement. PLAN: 1. Continue antibiotics. Further endocarditis workup per Cardiology and Infectious Disease. 2. At this point, there are no signs of active bleeding. We will go ahead and sign off as suspected bleeding was related to his acute coagulopathy. Liver function tests are normal. Hepatitis A, B, and C and HIV were all negative as well. Please do not hesitate to contact me for any further assistance in this patient's care. For now, we will follow from a distance. Job ID: [id number]
[2018-04-18] MEDS: levETIRAcetam 500 mg/5 ml Oral Solution PO SCH (20:31)
[2018-04-19 06:26] LABS: Anion Gap 10 mmol/L (10-20); BUN (Urea Nitrogen) 12 mg/dL (8.9-20.6); Calc. Creatinine Clearance 135 mL/min (70-130); Calcium 8.6 mg/dL (7.8-10.44); Carbon Dioxide 26 mmol/L (22-29); Chloride 106 mmol/L (98-107); Estimated GFR-MDRD Greater than 90; Glucose 145 mg/dL (70-105); Potassium 3.7 mmol/L (3.5-5.1); Sodium 138 mmol/L (136-145)
[2018-04-19 06:52] LABS: Hemoglobin 9.1 g/dL (14.0-18.0); Mean Corpuscular HGB CONC 33.1 g/dL (32.0-36.0); Mean Corpuscular Hemoglobin 28.4 pg (27.0-31.0); Mean Corpuscular Volume 85.9 fL (78.0-98.0); Mean Platelet Volume 8.3 fL (7.4-10.4); Platelet Count 303 thou/uL (130-400); RBC Distribution Width 14.6 % (11.5-14.5); Red Blood Cell (RBC) Count 3.21 mill/uL (4.70-6.10); White Blood Cell (WBC) Count 20.6 thou/uL (4.8-10.8)
[2018-04-19 06:57] LABS: Band 15 % (5-11); Lymphocytes 6 % (21-51); MDiff Complete? YES; Monocytes 7 % (0-10); Myelocyte 1 % (0-0); Neutrophil 71 % (42-75)
[2018-04-19] MEDS: Meropenem 2 GM in Sodium Chloride 0.9% 100 ML IVPB SCH ×3 (08:13→23:58)
--- NOTE | 2018-04-19 08:41 | CT ---
PRELIMINARY REPORT/[facility]/EMERGENTY AFTER-HOURS PROCEDURE CT Head Without Contrast EXAM DATE/TIME: 04/19/2018 3:49 AM CLINICAL HISTORY: 37 years old, male; Condition or disease; Other: Ich; Patient HX: Follow up serial ich TECHNIQUE: Axial computed tomography images of the head/brain without contrast. COMPARISON: CT Brain WO Con 04/16/2018 8:27 PM FINDINGS: Brain: 2.6 cm medial right cerebellar hemisphere intraparenchymal hematoma has increased from 1.7 cm on the prior study. Remaining cerebellar hemorrhages are unchanged. Increased leftward midline shift of the cerebellum, now approximately 5 mm. Multifocal subarachnoid hemorrhage and hemorrhagic contusions in both cerebral hemispheres are overall decreased in number and volume compar ed to the prior study. Ventricles: Stable small amount of blood in the dependent right lateral ventricle. Decreased amount o f blood in the dependent left lateral ventricle. Bones/joints: Stable multifocal bilateral supratentorial edema. Sinuses: Stable multifocal sinus fluid levels. Mastoid air cells: Visualized mastoid air cells are unremarkable. No mastoid effusion. Soft tissues: Unremarkable. IMPRESSION: 1. 2.6 cm medial right cerebellar hemisphere intraparenchymal hematoma has increased from 1.7 cm on t he prior study. Remaining cerebellar hemorrhages are unchanged. Increased leftward midline shift of t he cerebellum, now approximately 5 mm. 2. Multifocal subarachnoid hemorrhage and hemorrhagic contusions in both cerebral hemispheres are ove rall decreased in number and volume compared to the prior study. 3. Stable multifocal bilateral supratentorial edema. 4. Stable multifocal sinus fluid levels. Thank you for allowing us to participate in the care of your patient. Dictated and Authenticated by: Golden Clemens MD 04/19/2018 4:13 AM Central Time ([place] & [place]) FINAL REPORT HEAD CT WITHOUT CONTRAST: COMPARISON: 04/16/2018. HISTORY: Endocarditis. Intracranial hemorrhage. FINDINGS: This report is in agreement with the preliminary report by [facility]. Interval increase in size of a cereb ellar hematoma, near the cerebellar vermis. Additional posterior fossa hemorrhages as well as areas of edema and hemorrhage in the supratentorial brain are redemonstrated without significant change. C ontinued surveillance is recommended. Stable volume loss at the level of the left thalamus. Intrave ntricular hemorrhage as well as subarachnoid hemorrhage is again noted. POS: [facility]
[2018-04-19] MEDS: Pantoprazole 40 MG VIAL IVP SCH ×2 (09:38→20:41)
[2018-04-19] MEDS: levETIRAcetam 500 mg/5 ml Oral Solution PO SCH (09:39)
[2018-04-19] MEDS: Propofol 1,000 MG/100 ML VIAL IV PRN (09:39)
[2018-04-19] MEDS: Sodium Chloride 0.9% (PF) 10 ML VIAL FS SCH ×2 (09:46→20:41)
--- NOTE | 2018-04-19 10:18 | PDOC.PN ---
- Subjective Encounter Start Date: 04/19/18 Encounter Start Time: 10:19 Subjective: sedated - Objective MAR Reviewed: Yes Vital Signs & Weight: Vital Signs (12 hours) Temp Pulse Resp BP 04/19/18 08:00 99.2 F 04/19/18 07:14 74 132/102 H 04/19/18 06:00 14 04/19/18 04:00 11 L 04/19/18 03:30 66 04/19/18 02:00 16 04/19/18 00:00 13 04/18/18 22:48 53 L 107/80 Weight Admit Weight 130 lb 9.6 oz Weight 127 lb 4.8 oz Most Recent Monitor Data Heart Rate from ECG 82 NIBP 126/82 NIBP BP-Mean 96 Respiration from ECG 15 SpO2 94 I&O: 04/18/18 04/19/18 04/20/18 06:59 06:59 06:59 Intake Total 1820.8 2966 Output Total 1290 1415 110 Balance 530.8 1551 -110 Result Diagrams: 04/19/18 05:50 04/19/18 05:50 Additional Labs: Accuchecks 04/18/18 04/18/18 18:46 13:12 POC Glucose 124 H 102 Radiology Reviewed by me: Yes (cerebellar hematoma now 2.[address] scan) Phys Exam - Physical Examination Neck: no JVD coarse BS, rhonchi Cardiovascular: RRR loud , crisp clicks -aortic proshesis-mechanical Gastrointestinal: soft, non-tender, positive bowel sounds bilat BKA, warm WO edema Dx/Plan (1) Bacteremia due to other bacteria Code(s): R78.81 - BACTEREMIA; B96.89 - OTH BACTERIAL AGENTS THE CAUSE OF DISEASES CLASSD ELSWHR Status: Acute (2) Coagulopathy Status: Acute Comment: Improved significantly. No need for vit.K today. (3) GI bleeding Code(s): K92.2 - GASTROINTESTINAL HEMORRHAGE, UNSPECIFIED Status: Acute Qualifiers: GI bleed type/associated pathology: unspecified gastrointestinal hemorrhage type Qualified Code(s): K92.2 - Gastrointestinal hemorrhage, unspecified (4) History of endocarditis Code(s): Z86.79 - PERSONAL HISTORY OF OTHER DISEASES OF THE CIRCULATORY SYSTEM Status: Acute (5) Hypotension Status: Acute Qualifiers: Hypotension type: hypotension due to hypovolemia Qualified Code(s): I95.89 - Other hypotension; E86.1 - Hypovolemia Comment: resolved.. (6) Intracranial hemorrhage Code(s): I62.9 - NONTRAUMATIC INTRACRANIAL HEMORRHAGE, UNSPECIFIED Status: Acute (7) Respiratory failure Code(s): J96.90 - RESPIRATORY FAILURE, UNSP, UNSP W HYPOXIA OR HYPERCAPNIA Status: Acute Qualifiers: Chronicity: acute Respiratory failure complication: hypoxia and hypercapnia Qualified Code(s): J96.01 - Acute respiratory failure with hypoxia ; J96.02 - Acute respiratory failure with hypercapnia Comment: as per pulmonary.. (8) S/P aortic valve replacement Code(s): Z95.2 - PRESENCE OF PROSTHETIC HEART VALVE Status: Chronic (9) Sepsis Code(s): A41.9 - SEPSIS, UNSPECIFIED ORGANISM Status: Acute Qualifiers: Sepsis type: Pseudomonas Qualified Code(s): A41.52 - Sepsis due to Pseudomonas Comment: Blood cultures growing gram negative rods.. As per ID (10) Substance abuse Code(s): F19.10 - OTHER PSYCHOACTIVE SUBSTANCE ABUSE, UNCOMPLICATED Status: Acute (11) Cardiomyopathy Code(s): I42.9 - CARDIOMYOPATHY, UNSPECIFIED Status: Acute - Plan being extubated -: hold anticoag -: cont iv antibx -: needs BAKARI -: discussed with analytical tech * .
[2018-04-19] MEDS: Multivitamins, Adult 10 ML, Folic Acid 1 MG, Thiamine HCl 100 MG in Dextrose 5 %-0.45 %... IV SCH (16:58)
--- NOTE | 2018-04-19 17:42 | PRG ---
DATE OF SERVICE: 04/19/2018 SUBJECTIVE: Mr. Cleveland is in the ICU. He has been extubated, still obtunded, tachypneic. He is not on pressors. OBJECTIVE: VITAL SIGNS: His T-max 99.5, blood pressure 130/80, pulse 116, respiratory rate 35, O2 saturation 96%. HEENT: He has a left gaze preference, but no nystagmus. Pupils are reactive. LUNGS: Symmetric air entry. Coarse breath sounds. A few crackles on the left side. HEART: S1 and S2 without murmurs. Diastolic click of the prosthetic valve. ABDOMEN: Soft and nondistended. Beckett catheter in place. I's and O's are positive yesterday and negative thus far today. LABORATORY DATA: White cell count 20.6, hemoglobin 9.1, platelets 303 with 50% bands. Creatinine 0.62, potassium 3.7, phosphorus 2.0, albumin 2.5. HIV and hepatitis C serology negative. Cultures with Pseudomonas yet to be fully identified and susceptibility tested. There is one organism that has been identified and it is pansensitive. DIAGNOSTIC DATA: He had also a brain CT which showed a 2.6 medial right cerebellar hemisphere intraparenchymal hematoma increased from 1.7. Remainder, cerebellar hemorrhage is unchanged, somewhat increased leftward midline shift of cerebellum and multifocal subarachnoid hemorrhage and hemorrhagic contusions. 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 The patient currently is on Merrem and gentamicin, to be continued, and there is a high risk of failure of medical treatment. Job ID: [id number]
[2018-04-19] MEDS: levETIRAcetam 500 MG/100 ML PREMIX BAG IVPB SCH (20:41)
[2018-04-20 05:23] LABS: Band 7 % (5-11); Hemoglobin 9.3 g/dL (14.0-18.0); Lymphocytes 1 % (21-51); MDiff Complete? YES; Mean Corpuscular HGB CONC 33.6 g/dL (32.0-36.0); Mean Corpuscular Hemoglobin 28.5 pg (27.0-31.0); Mean Corpuscular Volume 84.7 fL (78.0-98.0); Mean Platelet Volume 7.9 fL (7.4-10.4); Monocytes 6 % (0-10); Myelocyte 1 % (0-0); Neutrophil 85 % (42-75); Phosphorus 2.4 mg/dL (2.3-4.7); Platelet Count 374 thou/uL (130-400); RBC Distribution Width 14.7 % (11.5-14.5); Red Blood Cell (RBC) Count 3.27 mill/uL (4.70-6.10); White Blood Cell (WBC) Count 23.9 thou/uL (4.8-10.8)
[2018-04-20 05:24] LABS: Anion Gap 12 mmol/L (10-20); BUN (Urea Nitrogen) 13 mg/dL (8.9-20.6); Calc. Creatinine Clearance 135 mL/min (70-130); Calcium 8.3 mg/dL (7.8-10.44); Carbon Dioxide 24 mmol/L (22-29); Chloride 103 mmol/L (98-107); Estimated GFR-MDRD Greater than 90; Glucose 122 mg/dL (70-105); Magnesium 1.8 mg/dL (1.6-2.6); Potassium 3.5 mmol/L (3.5-5.1); Sodium 135 mmol/L (136-145)
--- NOTE | 2018-04-20 08:03 | PRG ---
DATE OF SERVICE: 04/20/2018 SERVICE: Pulmonary Medicine. INTERVAL HISTORY: The patient is doing fine from respiratory standpoint. He is actually following some simple commands. He is told his right arm up on command. He is moving his right leg on command. He is not moving his left arm yet. Otherwise, there has been no interval change to his condition. Mentation bills, things are actually improving a little bit. PHYSICAL EXAMINATION: VITALS SIGNS: Afebrile. Pulse 123, blood pressure 135/87, respirations 18, saturation 96% on 27% FiO2 and a PEEP of 5. GENERAL: The patient is awake. He is a little bit somnolent. That being said, with some coaxing, he will follow some simple commands. HEENT: Normocephalic and atraumatic. Sclerae white. Conjunctivae pink. Oral mucosa is moist without lesions. LUNGS: Decent air entry. There are no crackles or wheezing present. Rhonchi are noted. HEART: Tachycardic. Regular. ABDOMEN: Soft, nontender, and nondistended. Bowel sounds are positive. MUSCULOSKELETAL: No cyanosis or clubbing. No pitting in the bilateral lower extremities. NEUROLOGIC: He has a dense plegia of the left upper extremity. He is spontaneously moving the bilateral lower extremity, and right upper extremity. He is following some simple commands, overbreathing the ventilator and have pupils that are working correctly. LABORATORY DATA: WBC 20.6, hemoglobin 9.1 and improved, platelets 303,000. Basic metabolic profile is completely unremarkable. Phosphorus is 2.0, magnesium 2.0. Pseudomonas aeruginosa is growing in 2/2 blood cultures. It is a pansensitive organism. Stool culture, and urine culture are otherwise unremarkable. IMAGING: CT of the brain demonstrates interval increase in size in the cerebellar hematoma near the cerebellar vermis. Posterior fossa hemorrhages are noted. Supratentorial brain hemorrhages are re-demonstrated. Volume loss at the left thalamus is stable. Intraventricular hemorrhage and subarachnoid hemorrhage are also present. ASSESSMENT: 1. Severe sepsis secondary to endocarditis. 2. Bacteremia secondary to Pseudomonas. 3. History of IV drug abuse with methamphetamine positive on urine drug screen. 4. Status epilepticus, on presentation, resolved. 5. Mechanical aortic valve. 6. Acute systolic heart failure. 7. Episode of complete heart block, currently sinus rhythm. DISCUSSION AND PLAN: We will place the patient on a spontaneous breathing trial. If he meets criteria, extubation will be considered. At some point in the future, a BAKARI may be indicated, if needed by Dr. Aj. Pulmonary/Critical Care will continue to follow along. The patient is likely actively withdrawing from either alcohol , opiates, or stimulants. As such, we will continue the Precedex, and provide him with p.r.n. doses of anxiety medication, if needed. CRITICAL CARE TIME: 30 minutes. Job ID: [id number] MTDD
[2018-04-20] MEDS: Pantoprazole 40 MG VIAL IVP SCH ×2 (08:15→21:03)
[2018-04-20] MEDS: Sodium Chloride 0.9% (PF) 10 ML VIAL FS SCH ×2 (08:19→21:04)
[2018-04-20] MEDS: Meropenem 2 GM in Sodium Chloride 0.9% 100 ML IVPB SCH ×2 (08:39→15:07)
[2018-04-20] MEDS: levETIRAcetam 500 MG/100 ML PREMIX BAG IVPB SCH ×2 (09:11→21:03)
[2018-04-20] MEDS ORDERED: Magnesium 2 GM/50 ML 2 GM in Premix Bag 1 BAG IVPB SCH (09:30)
--- NOTE | 2018-04-20 09:36 | PDOC.PN ---
- Subjective Encounter Start Date: 04/20/18 Encounter Start Time: 09:34 Subjective: more alert, moving R side - Objective MAR Reviewed: Yes Vital Signs & Weight: Vital Signs (12 hours) Temp Pulse Ox 04/20/18 07:19 98 04/20/18 04:00 99.7 F H 04/20/18 00:00 99.3 F Weight Admit Weight 130 lb 9.6 oz Weight 125 lb 4.8 oz Most Recent Monitor Data Heart Rate from ECG 117 NIBP 122/91 NIBP BP-Mean 101 Respiration from ECG 44 SpO2 98 I&O: 04/19/18 04/20/18 04/21/18 06:59 06:59 06:59 Intake Total 2966 1306 Output Total 1415 745 Balance 1551 561 Result Diagrams: 04/20/18 04:50 04/20/18 04:50 Additional Labs: Accuchecks 04/19/18 04/19/18 17:10 13:37 POC Glucose 123 H 119 H Phys Exam - Physical Examination Neck: no JVD coarse BS, rhonchi Cardiovascular: RRR, no significant murmur Gastrointestinal: soft, positive bowel sounds Musculoskeletal: no edema Dx/Plan (1) Bacteremia due to other bacteria Code(s): R78.81 - BACTEREMIA; B96.89 - OTH BACTERIAL AGENTS THE CAUSE OF DISEASES CLASSD ELSWHR Status: Acute Comment: pseudomonas (2) Coagulopathy Status: Resolved Comment: Improved significantly. No need for vit.K today. (3) GI bleeding Code(s): K92.2 - GASTROINTESTINAL HEMORRHAGE, UNSPECIFIED Status: Acute Qualifiers: GI bleed type/associated pathology: unspecified gastrointestinal hemorrhage type Qualified Code(s): K92.2 - Gastrointestinal hemorrhage, unspecified (4) History of endocarditis Code(s): Z86.79 - PERSONAL HISTORY OF OTHER DISEASES OF THE CIRCULATORY SYSTEM Status: Acute (5) Hypotension Status: Resolved Qualifiers: Hypotension type: hypotension due to hypovolemia Qualified Code(s): I95.89 - Other hypotension; E86.1 - Hypovolemia Comment: resolved.. (6) Intracranial hemorrhage Code(s): I62.9 - NONTRAUMATIC INTRACRANIAL HEMORRHAGE, UNSPECIFIED Status: Acute (7) Respiratory failure Code(s): J96.90 - RESPIRATORY FAILURE, UNSP, UNSP W HYPOXIA OR HYPERCAPNIA Status: Resolved Qualifiers: Chronicity: acute Respiratory failure complication: hypoxia and hypercapnia Qualified Code(s): J96.01 - Acute respiratory failure with hypoxia ; J96.02 - Acute respiratory failure with hypercapnia Comment: as per pulmonary.. (8) S/P aortic valve replacement Code(s): Z95.2 - PRESENCE OF PROSTHETIC HEART VALVE Status: Chronic (9) Sepsis Code(s): A41.9 - SEPSIS, UNSPECIFIED ORGANISM Status: Acute Qualifiers: Sepsis type: Pseudomonas Qualified Code(s): A41.52 - Sepsis due to Pseudomonas Comment: Blood cultures growing gram negative rods.. As per ID (10) Substance abuse Code(s): F19.10 - OTHER PSYCHOACTIVE SUBSTANCE ABUSE, UNCOMPLICATED Status: Acute (11) Cardiomyopathy Code(s): I42.9 - CARDIOMYOPATHY, UNSPECIFIED Status: Acute Qualifiers: Cardiomyopathy type: unspecified Qualified Code(s): I42.9 - Cardiomyopathy , unspecified - Plan off vent, nutrtion per feeding tube -: cont iv antibx -: discuss BAKARI with cardiology -: PICC ? * .
--- NOTE | 2018-04-20 11:04 | RAD ---
KUB: HISTORY: Dobbhoff tube placement. FINDINGS: A single view of the abdomen shows a nonspecific, nonobstructed bowel gas pattern. A Dobbhoff tube i s seen with its tip in the stomach. IMPRESSION: Dobbhoff tube located in the stomach. POS: [facility]
[2018-04-20] MEDS: Multivitamins, Adult 10 ML, Folic Acid 1 MG, Thiamine HCl 100 MG in Dextrose 5 %-0.45 %... IV SCH (15:04)
--- NOTE | 2018-04-20 18:03 | PRG ---
DATE OF SERVICE: 04/20/2018 SERVICE: Pulmonary Medicine. INTERVAL HISTORY: The patient is doing okay from respiratory standpoint. Remains tachycardic. He is occasionally diaphoretic. He is on the Precedex still. Otherwise, there has been no change to his condition. Mentation bills, things are ever so slightly better. When I walked in the room this morning, I said his name and he attended. He is following some simple commands. He is spontaneously moving both upper and lower extremities. PHYSICAL EXAMINATION: VITAL SIGNS: Afebrile with a T-max of 100.6. Pulse 121, blood pressure 111/79, respirations 39, saturation 99% on 3 L nasal cannula. HEENT: Normocephalic and atraumatic. Sclerae white. Conjunctivae pink. Oral mucosa is moist without lesions. LUNGS: Good air entry is present. I really do not hear a prolonged expiratory phase. No crackles are present. No wheezing. HEART: Normal rate regular. ABDOMEN: Soft, nontender, and nondistended. Bowel sounds are positive. MUSCULOSKELETAL: No cyanosis or clubbing. There is no pitting in the bilateral lower extremities. LABORATORY DATA: WBC 23.9, hemoglobin 9.3, platelets 374,000 and uptrending. Neutrophil count is uptrending, but the band count is falling off to 7%. INR 1.3 previously. Basic metabolic profile is unremarkable. Potassium 3.5. Magnesium 1.8, phosphorus 2.4. Blood cultures x2 are growing Pseudomonas aeruginosa. Urine culture is negative. IMAGING STUDIES: KUB demonstrates Dobhoff tube located in the stomach. Otherwise, no acute intraabdominal processes occurring. ASSESSMENT AND PLAN: 1. Severe sepsis. 2. Bacteremia, secondary to Pseudomonas. 3. History of IV drug abuse. 4. Methamphetamine positive urine drug screen. 5. Status epilepticus on presentation, resolved. 6. Mechanical aortic valve. 7. Acute systolic heart failure. 8. Episode of complete heart block, currently sinus rhythm. DISCUSSION AND PLAN: I will place a Dobhoff tube. We will initiate tube feeds once again as the patient is not in a place where he is going to be able to swallow. We will try to get him up into a neuro chair. Potassium to be replaced. Physical Therapy and Occupational Therapy consultation will be done. Magnesium and potassium will need to be replaced. We will watch him very closely. There is a possibility in 24 to 48 hours, he could fail extubation, will require repeat intubation. Time will tell. Job ID: [id number]
[2018-04-21] MEDS: Meropenem 2 GM in Sodium Chloride 0.9% 100 ML IVPB SCH ×4 (00:14→23:42)
[2018-04-21 04:19] LABS: Band 20 % (5-11); Eosinophils 1 % (0-10); Hemoglobin 10.1 g/dL (14.0-18.0); Lymphocytes 1 % (21-51); MDiff Complete? YES; Mean Corpuscular Hemoglobin 28.6 pg (27.0-31.0); Mean Corpuscular Volume 86.6 fL (78.0-98.0); Mean Platelet Volume 7.8 fL (7.4-10.4); Monocytes 1 % (0-10); Neutrophil 77 % (42-75); Platelet Count 377 thou/uL (130-400); RBC Distribution Width 16.7 % (11.5-14.5); Red Blood Cell (RBC) Count 3.53 mill/uL (4.70-6.10); White Blood Cell (WBC) Count 30.3 thou/uL (4.8-10.8)
[2018-04-21 04:24] LABS: Phosphorus 2.3 mg/dL (2.3-4.7)
[2018-04-21 04:26] LABS: Anion Gap 12 mmol/L (10-20); BUN (Urea Nitrogen) 18 mg/dL (8.9-20.6); Calc. Creatinine Clearance 118 mL/min (70-130); Calcium 7.9 mg/dL (7.8-10.44); Carbon Dioxide 20 mmol/L (22-29); Chloride 105 mmol/L (98-107); Estimated GFR-MDRD Greater than 90; Glucose 146 mg/dL (70-105); Magnesium 2.2 mg/dL (1.6-2.6); Potassium 3.9 mmol/L (3.5-5.1); Sodium 133 mmol/L (136-145)
[2018-04-21] MEDS: levETIRAcetam 500 MG/100 ML PREMIX BAG IVPB SCH ×2 (07:26→21:12)
[2018-04-21] MEDS: Pantoprazole 40 MG VIAL IVP SCH ×2 (07:29→21:12)
[2018-04-21] MEDS: Sodium Chloride 0.9% (PF) 10 ML VIAL FS SCH ×2 (07:30→21:12)
--- NOTE | 2018-04-21 10:41 | PDOC.PN ---
- Subjective Encounter Start Date: 04/21/18 Encounter Start Time: 10:40 Subjective: calm - Objective MAR Reviewed: Yes Vital Signs & Weight: Vital Signs (12 hours) Temp 04/21/18 04:00 99.3 F Weight Admit Weight 130 lb 9.6 oz Weight 125 lb 4.8 oz Most Recent Monitor Data Heart Rate from ECG 112 NIBP 104/62 NIBP BP-Mean 76 Respiration from ECG 44 SpO2 100 I&O: 04/20/18 04/21/18 04/22/18 06:59 06:59 06:59 Intake Total 1306 3423 Output Total 745 12 Balance 561 3411 Result Diagrams: 04/21/18 03:55 04/21/18 03:55 Additional Labs: Accuchecks 04/20/18 12:01 POC Glucose 116 H Phys Exam - Physical Examination Neck: no JVD bilat rhonchi Cardiovascular: RRR crisp mech valve sounds Gastrointestinal: soft, positive bowel sounds Musculoskeletal: no edema post bilat BKA Dx/Plan (1) Bacteremia due to other bacteria Code(s): R78.81 - BACTEREMIA; B96.89 - OTH BACTERIAL AGENTS THE CAUSE OF DISEASES CLASSD ELSWHR Status: Acute Comment: pseudomonas (2) Coagulopathy Status: Resolved Comment: Improved significantly. No need for vit.K today. (3) GI bleeding Code(s): K92.2 - GASTROINTESTINAL HEMORRHAGE, UNSPECIFIED Status: Acute Qualifiers: GI bleed type/associated pathology: unspecified gastrointestinal hemorrhage type Qualified Code(s): K92.2 - Gastrointestinal hemorrhage, unspecified (4) History of endocarditis Code(s): Z86.79 - PERSONAL HISTORY OF OTHER DISEASES OF THE CIRCULATORY SYSTEM Status: Acute (5) Hypotension Status: Resolved Qualifiers: Hypotension type: hypotension due to hypovolemia Qualified Code(s): I95.89 - Other hypotension; E86.1 - Hypovolemia Comment: resolved.. (6) Intracranial hemorrhage Code(s): I62.9 - NONTRAUMATIC INTRACRANIAL HEMORRHAGE, UNSPECIFIED Status: Acute (7) Respiratory failure Code(s): J96.90 - RESPIRATORY FAILURE, UNSP, UNSP W HYPOXIA OR HYPERCAPNIA Status: Resolved Qualifiers: Chronicity: acute Respiratory failure complication: hypoxia and hypercapnia Qualified Code(s): J96.01 - Acute respiratory failure with hypoxia ; J96.02 - Acute respiratory failure with hypercapnia Comment: as per pulmonary.. (8) S/P aortic valve replacement Code(s): Z95.2 - PRESENCE OF PROSTHETIC HEART VALVE Status: Chronic (9) Sepsis Code(s): A41.9 - SEPSIS, UNSPECIFIED ORGANISM Status: Acute Qualifiers: Sepsis type: Pseudomonas Qualified Code(s): A41.52 - Sepsis due to Pseudomonas Comment: Blood cultures growing gram negative rods.. As per ID (10) Substance abuse Code(s): F19.10 - OTHER PSYCHOACTIVE SUBSTANCE ABUSE, UNCOMPLICATED Status: Acute (11) Cardiomyopathy Code(s): I42.9 - CARDIOMYOPATHY, UNSPECIFIED Status: Acute Qualifiers: Cardiomyopathy type: unspecified Qualified Code(s): I42.9 - Cardiomyopathy , unspecified - Plan cont iv antibx -: nutrition per tube -: meds iv for now -: BAKARI when intesivist considers adequately stable * .
--- NOTE | 2018-04-21 13:34 | PRG ---
DATE OF SERVICE: 04/21/2018 SERVICE: Pulmonary Medicine. INTERVAL HISTORY: When I walk in the room, the patient does attend. He does not follow any simple commands. He is diaphoretic from head to toe as he has been for several days. Otherwise, there has been no interval change to his condition. PHYSICAL EXAMINATION: VITAL SIGNS: Afebrile currently with a T-max overnight of 100.6. Pulse 112, blood pressure 104/62, respirations 44, saturation 100% on 2 L nasal cannula. GENERAL: He is awake and alert. He has got mild respiratory distress. HEENT: Normocephalic and atraumatic. Sclerae white. Conjunctivae pink. Oral mucosa is moist without lesions. LUNGS: Decent air entry. Extensive rhonchi are present. Most of these transmitted from the upper airway. There is no prolonged expiratory phase or wheezing present. There are no crackles. HEART: Normal rate, regular. ABDOMEN: Soft, nontender, and nondistended. Bowel sounds positive. MUSCULOSKELETAL: No cyanosis or clubbing. No pitting in the bilateral lower extremities. NEUROLOGIC: Grossly nonfocal. LABORATORY DATA: WBC 30.3, hemoglobin 10.1, platelets 377,000. Sodium 133 and downtrending, bicarb 20. Basic metabolic profile is otherwise unremarkable. Magnesium and phosphorous fall within the normal limits. Blood cultures x2 are growing Pseudomonas aeruginosa. This is a pansensitive organism. Repeat blood cultures and urine culture are negative to date. ASSESSMENT: 1. Severe sepsis. 2. Bacteremia secondary to Pseudomonas aeruginosa. 3. History of intravenous drug abuse. 4. Status epilepticus on presentation, resolved. 5. Mechanical aortic valve. 6. Acute systolic heart failure. 7. Remote episode of complete heart block 2 days ago. DISCUSSION AND PLAN: The patient looks a little bit worse today. He is diaphoretic from head to toe and I suspect that this is associated with his withdrawal. We have him on some medicines to help him through this process. We will have respiratory therapy to pay close attention through the day. My suspicion is, however, that over the next 12-24 hours, he may require repeat endotracheal intubation. If he has a true fever, we will panculture him. Neurologic exams will be followed very closely. If he has any significant deterioration, stat CT of the head will be repeated as he has ventricular blood. Job ID: [id number] [facility]
[2018-04-21] MEDS: Multivitamins, Adult 10 ML, Folic Acid 1 MG, Thiamine HCl 100 MG in Dextrose 5 %-0.45 %... IV SCH (13:41)
[2018-04-22 05:29] LABS: Anion Gap 10 mmol/L (10-20); BUN (Urea Nitrogen) 17 mg/dL (8.9-20.6); Calc. Creatinine Clearance 138 mL/min (70-130); Calcium 8.2 mg/dL (7.8-10.44); Carbon Dioxide 20 mmol/L (22-29); Chloride 105 mmol/L (98-107); Estimated GFR-MDRD Greater than 90; Glucose 143 mg/dL (70-105); Potassium 3.9 mmol/L (3.5-5.1); Sodium 131 mmol/L (136-145)
[2018-04-22 05:37] LABS: Band 6 % (5-11); Eosinophils 5 % (0-10); Hemoglobin 8.9 g/dL (14.0-18.0); Lymphocytes 10 % (21-51); MDiff Complete? YES; Mean Corpuscular HGB CONC 32.7 g/dL (32.0-36.0); Mean Corpuscular Hemoglobin 28.8 pg (27.0-31.0); Mean Corpuscular Volume 87.9 fL (78.0-98.0); Mean Platelet Volume 7.6 fL (7.4-10.4); Monocytes 2 % (0-10); Neutrophil 77 % (42-75); Platelet Count 345 thou/uL (130-400); RBC Distribution Width 17.2 % (11.5-14.5); Red Blood Cell (RBC) Count 3.07 mill/uL (4.70-6.10); White Blood Cell (WBC) Count 16.6 thou/uL (4.8-10.8)
--- NOTE | 2018-04-22 08:07 | PDOC.PN ---
- Subjective Encounter Start Date: 04/22/18 Encounter Start Time: 08:05 -: non-verbal Subjective: opens eyes to verbal stimuli - Objective MAR Reviewed: Yes Vital Signs & Weight: Vital Signs (12 hours) Temp Pulse Ox 04/22/18 07:37 97 04/22/18 04:00 99.1 F 04/22/18 00:00 99.4 F Weight Admit Weight 130 lb 9.6 oz Weight 128 lb 1.6 oz Most Recent Monitor Data Heart Rate from ECG 113 NIBP 112/77 NIBP BP-Mean 88 Respiration from ECG 37 SpO2 100 I&O: 04/21/18 04/22/18 04/23/18 06:59 06:59 06:59 Intake Total 3423 3968 Output Total 12 1805 Balance 3411 2163 Result Diagrams: 04/22/18 05:05 04/22/18 05:05 Phys Exam - Physical Examination Neck: no JVD scattered rhonchi- nonfocal Cardiovascular: RRR, no significant murmur Gastrointestinal: soft, positive bowel sounds Musculoskeletal: no edema Dx/Plan (1) Bacteremia due to other bacteria Code(s): R78.81 - BACTEREMIA; B96.89 - OTH BACTERIAL AGENTS THE CAUSE OF DISEASES CLASSD ELSWHR Status: Acute Comment: pseudomonas (2) Coagulopathy Status: Resolved Comment: Improved significantly. No need for vit.K today. (3) GI bleeding Code(s): K92.2 - GASTROINTESTINAL HEMORRHAGE, UNSPECIFIED Status: Acute Qualifiers: GI bleed type/associated pathology: unspecified gastrointestinal hemorrhage type Qualified Code(s): K92.2 - Gastrointestinal hemorrhage, unspecified (4) History of endocarditis Code(s): Z86.79 - PERSONAL HISTORY OF OTHER DISEASES OF THE CIRCULATORY SYSTEM Status: Acute (5) Hypotension Status: Resolved Qualifiers: Hypotension type: hypotension due to hypovolemia Qualified Code(s): I95.89 - Other hypotension; E86.1 - Hypovolemia Comment: resolved.. (6) Intracranial hemorrhage Code(s): I62.9 - NONTRAUMATIC INTRACRANIAL HEMORRHAGE, UNSPECIFIED Status: Acute (7) Respiratory failure Code(s): J96.90 - RESPIRATORY FAILURE, UNSP, UNSP W HYPOXIA OR HYPERCAPNIA Status: Resolved Qualifiers: Chronicity: acute Respiratory failure complication: hypoxia and hypercapnia Qualified Code(s): J96.01 - Acute respiratory failure with hypoxia ; J96.02 - Acute respiratory failure with hypercapnia Comment: as per pulmonary.. (8) S/P aortic valve replacement Code(s): Z95.2 - PRESENCE OF PROSTHETIC HEART VALVE Status: Chronic (9) Sepsis Code(s): A41.9 - SEPSIS, UNSPECIFIED ORGANISM Status: Acute Qualifiers: Sepsis type: Pseudomonas Qualified Code(s): A41.52 - Sepsis due to Pseudomonas Comment: Blood cultures growing gram negative rods.. As per ID (10) Substance abuse Code(s): F19.10 - OTHER PSYCHOACTIVE SUBSTANCE ABUSE, UNCOMPLICATED Status: Acute (11) Cardiomyopathy Code(s): I42.9 - CARDIOMYOPATHY, UNSPECIFIED Status: Acute Qualifiers: Cardiomyopathy type: unspecified Qualified Code(s): I42.9 - Cardiomyopathy , unspecified - Plan cont iv antibx -: nutrition per tube -: discuss with dumpcart driver * .
[2018-04-22] MEDS: Meropenem 2 GM in Sodium Chloride 0.9% 100 ML IVPB SCH ×3 (09:14→23:34)
[2018-04-22] MEDS: levETIRAcetam 500 MG/100 ML PREMIX BAG IVPB SCH (09:14)
[2018-04-22] MEDS: Pantoprazole 40 MG VIAL IVP SCH ×2 (09:14→20:18)
[2018-04-22] MEDS: Sodium Chloride 0.9% (PF) 10 ML VIAL FS SCH ×2 (09:16→20:18)
--- NOTE | 2018-04-22 14:19 | PRG ---
DATE OF SERVICE: 04/22/2018 SERVICE: Pulmonary Medicine. INTERVAL HISTORY: The patient is doing really well from respiratory standpoint. Denies any current chest pain, fevers, or chills. Otherwise, there has been no interval change to his condition. He looks much less toxic today. He is no longer diaphoretic, he is following some simple commands. He has had a hard time moving the left upper extremity, but otherwise, he is moving his right arm, and bilateral lower extremities to command. He is breathing very comfortably. He has a better cough today. PHYSICAL EXAMINATION: VITAL SIGNS: Afebrile, pulse 106, blood pressure 108/74, respirations 31, saturation 100% on 2 L nasal cannula. GENERAL: The patient is awake and alert, in no apparent distress. LUNGS: Decent air entry with no prolonged expiratory phase or wheezing. HEART: Normal rate, regular. ABDOMEN: Soft, nontender, and nondistended. Bowel sounds are positive. MUSCULOSKELETAL: No cyanosis or clubbing. NEUROLOGIC: As above. LABORATORY DATA: WBC 16.6, hemoglobin 8.9, and platelets 345,000. Basic metabolic profile is essentially unremarkable except for declining sodium to 131. C. diff antigen and toxin is negative. Blood cultures x2 are unremarkable. Original urine cultures are negative. The original blood culture is growing Pseudomonas. ASSESSMENT: 1. Severe sepsis. 2. Bacteremia secondary to Pseudomonas aeruginosa. 3. History of IV drug abuse. 4. Status epilepticus, on presentation, resolved. 5. Mechanical aortic valve. 6. Intracranial hemorrhage. 7. Acute systolic heart failure. 8. Recent episode of heart block three days ago. DISCUSSION AND PLAN: The patient actually looks quite a bit better today. He seems to be clearing his inflammatory profile. We are going to slowly introduce a small dose of anticoagulation. He is being cleared for such from Neurosurgery. We are not going to bridge him. We will slowly get his blood to an appropriate thinness. We will continue tube feed and other supportive care. We are going to make certain Physical therapy and Occupational therapy are working hard with this patient. We will mobilize him as much as can be tolerated. The half NS will be discontinued altogether. We will provide him with his vitamins through his PEG tube. If the sodium continues to trend downward, we may need to consider hypertonic fluids for him. Job ID: [id number]
[2018-04-22] MEDS: GENTAMICIN SULFATE IVPB SCH ×2 (14:29→22:03)
[2018-04-22] MEDS: SODIUM CHLORIDE 0.9% IVPB SCH ×2 (14:29→22:03)
[2018-04-22] MEDS: Warfarin Sodium 2.5 MG TAB PO SCH (16:41)
[2018-04-22] MEDS ORDERED: Vancomycin HCl 1.5 GM in Sodium Chloride 0.9% 250 ML 300 ML IVPB SCH (19:00)
[2018-04-22] MEDS: levETIRAcetam 500 mg/5 ml Oral Solution PER TUBE SCH (20:17)
[2018-04-22] MEDS: Acetaminophen 650 MG/20.3 ML UDCUP PER TUBE PRN (20:17)
[2018-04-23] MEDS: Vancomycin HCl 1 GM in Premix Bag 1 BAG IVPB SCH ×3 (04:07→20:31)
[2018-04-23 05:24] LABS: INR-International Normal Ratio 1.2; Prothrombin Time 15.7 SEC (12.0-14.7)
[2018-04-23 05:34] LABS: Band 12 % (5-11); Eosinophils 1 % (0-10); Lymphocytes 5 % (21-51); MDiff Complete? YES; Mean Corpuscular HGB CONC 33.1 g/dL (32.0-36.0); Mean Corpuscular Volume 87.6 fL (78.0-98.0); Mean Platelet Volume 7.9 fL (7.4-10.4); Monocytes 3 % (0-10); Neutrophil 79 % (42-75); Platelet Count 361 thou/uL (130-400); Platelet Morphology Comment Appears Adequate; RBC Distribution Width 17.2 % (11.5-14.5); White Blood Cell (WBC) Count 15.3 thou/uL (4.8-10.8)
[2018-04-23 05:39] LABS: Anion Gap 13 mmol/L (10-20); BUN (Urea Nitrogen) 16 mg/dL (8.9-20.6); Calc. Creatinine Clearance 140 mL/min (70-130); Calcium 8.3 mg/dL (7.8-10.44); Carbon Dioxide 20 mmol/L (22-29); Chloride 103 mmol/L (98-107); Estimated GFR-MDRD Greater than 90; Glucose 139 mg/dL (70-105); Potassium 3.7 mmol/L (3.5-5.1); Sodium 132 mmol/L (136-145)
[2018-04-23] MEDS: SODIUM CHLORIDE 0.9% IVPB SCH ×3 (05:57→22:24)
[2018-04-23] MEDS: GENTAMICIN SULFATE IVPB SCH ×3 (05:57→22:24)
[2018-04-23] MEDS: Pantoprazole 40 MG VIAL IVP SCH ×2 (08:14→20:32)
[2018-04-23] MEDS: Sodium Chloride 0.9% (PF) 10 ML VIAL FS SCH ×2 (08:14→20:44)
[2018-04-23] MEDS: Meropenem 2 GM in Sodium Chloride 0.9% 100 ML IVPB SCH ×2 (08:14→16:10)
[2018-04-23] MEDS: levETIRAcetam 500 mg/5 ml Oral Solution PER TUBE SCH ×2 (08:15→20:31)
[2018-04-23] MEDS: Folic Acid 1 MG TAB PER TUBE SCH (08:15)
--- NOTE | 2018-04-23 08:22 | PDOC.PN ---
- Subjective Encounter Start Date: 04/23/18 Encounter Start Time: 08:20 Subjective: responds to verbal stimuli - Objective MAR Reviewed: Yes Vital Signs & Weight: Vital Signs (12 hours) Temp 04/22/18 22:00 100.0 F H Weight Admit Weight 130 lb 9.6 oz Weight 124 lb 12.8 oz Most Recent Monitor Data Heart Rate from ECG 104 NIBP 109/79 NIBP BP-Mean 89 Respiration from ECG 33 SpO2 100 I&O: 04/22/18 04/23/18 04/24/18 06:59 06:59 06:59 Intake Total 3968 3307.9 Output Total 1805 4380 300 Balance 2163 -1072.1 -300 Result Diagrams: 04/23/18 04:10 04/23/18 04:10 Phys Exam - Physical Examination Neck: no JVD coarse BS, non-focal Cardiovascular: RRR crisp valve sounds Gastrointestinal: soft, positive bowel sounds bilat BKA-old Dx/Plan (1) Bacteremia due to other bacteria Code(s): R78.81 - BACTEREMIA; B96.89 - OTH BACTERIAL AGENTS THE CAUSE OF DISEASES CLASSD ELSWHR Status: Acute Comment: pseudomonas (2) Coagulopathy Status: Resolved Comment: Improved significantly. No need for vit.K today. (3) GI bleeding Code(s): K92.2 - GASTROINTESTINAL HEMORRHAGE, UNSPECIFIED Status: Acute Qualifiers: GI bleed type/associated pathology: unspecified gastrointestinal hemorrhage type Qualified Code(s): K92.2 - Gastrointestinal hemorrhage, unspecified (4) History of endocarditis Code(s): Z86.79 - PERSONAL HISTORY OF OTHER DISEASES OF THE CIRCULATORY SYSTEM Status: Acute (5) Hypotension Status: Resolved Qualifiers: Hypotension type: hypotension due to hypovolemia Qualified Code(s): I95.89 - Other hypotension; E86.1 - Hypovolemia Comment: resolved.. (6) Intracranial hemorrhage Code(s): I62.9 - NONTRAUMATIC INTRACRANIAL HEMORRHAGE, UNSPECIFIED Status: Acute (7) Respiratory failure Code(s): J96.90 - RESPIRATORY FAILURE, UNSP, UNSP W HYPOXIA OR HYPERCAPNIA Status: Resolved Qualifiers: Chronicity: acute Respiratory failure complication: hypoxia and hypercapnia Qualified Code(s): J96.01 - Acute respiratory failure with hypoxia ; J96.02 - Acute respiratory failure with hypercapnia Comment: as per pulmonary.. (8) S/P aortic valve replacement Code(s): Z95.2 - PRESENCE OF PROSTHETIC HEART VALVE Status: Chronic (9) Sepsis Code(s): A41.9 - SEPSIS, UNSPECIFIED ORGANISM Status: Acute Qualifiers: Sepsis type: Pseudomonas Qualified Code(s): A41.52 - Sepsis due to Pseudomonas Comment: Blood cultures growing gram negative rods.. As per ID (10) Substance abuse Code(s): F19.10 - OTHER PSYCHOACTIVE SUBSTANCE ABUSE, UNCOMPLICATED Status: Acute (11) Cardiomyopathy Code(s): I42.9 - CARDIOMYOPATHY, UNSPECIFIED Status: Acute Qualifiers: Cardiomyopathy type: unspecified Qualified Code(s): I42.9 - Cardiomyopathy , unspecified (12) Tachycardia Code(s): R00.0 - TACHYCARDIA, UNSPECIFIED Status: Acute (13) Hyponatremia Code(s): E87.1 - HYPO-OSMOLALITY AND HYPONATREMIA Status: Acute - Plan febrile last PM, cultures drawn. on iv anyibx for pseudomas -: high UO with hyponatrenia. urine TIDWELL , discuss with pad machine offbearer -: cont tube nutrition * .
[2018-04-23 09:36] LABS: Potassium, Urine 17.9 mmol/L
--- NOTE | 2018-04-23 12:40 | PRG ---
DATE OF SERVICE: 04/23/2018 SERVICE: Pulmonary Medicine. INTERVAL HISTORY: The patient is doing fine from respiratory standpoint. He is actually breathing comfortably. He attends. He is following some simple commands. Otherwise, there has been no interval change to his condition. He denies current chest pain or shortness of breath. He appears to be much more comfortable over the last 2 days. PHYSICAL EXAMINATION: VITAL SIGNS: Afebrile currently with a T-max of 102 overnight. Pulse 110, blood pressure 112/71, respirations 29, saturation 100% on 2 L nasal cannula. GENERAL: The patient is awake and alert, in no apparent distress. LUNGS: Decent air entry. Rhonchi are present. They clear with cough. No prolonged expiratory phase or wheezing is appreciated. HEART: Normal rate, regular. ABDOMEN: Soft, nontender, nondistended. Bowel sounds are positive. MUSCULOSKELETAL: No cyanosis or clubbing. No pitting in the bilateral lower extremities. NEUROLOGIC: He has a dense left upper extremity plegia. He also has a difficult time swallowing, continuously drools. His pupils are equal, round, and reactive. He is breathing comfortably. He does have a cough and gag. LABORATORY DATA: WBC 15.3, hemoglobin 9.0 and stable, platelets 361,000. INR 1.2. Sodium 132 and up trending gently. Basic metabolic profile is otherwise unremarkable. Blood cultures x4, C. diff antigen and toxin are unremarkable. ASSESSMENT: 1. Severe sepsis. 2. Bacteremia secondary to Pseudomonas aeruginosa. 3. History of intravenous drug abuse. 4. Status epilepticus on presentation, resolved. 5. Mechanical aortic valve. 6. Intracranial hemorrhage. 7. Acute systolic heart failure. 8. Recent episode of heart block, now 4 days in the past. DISCUSSION AND PLAN: The patient ended up getting re-cultured last night, which I think is fairly reasonable. We will continue his antibiotics per ID direction. We are going to continue our tube feeds, which he is tolerating just fine. He will need to remain in the hospital, but from my perspective, he is approaching readiness for being discharge if he defervesces through the weekend. This might prove challenging as it is my understanding, the patient may lack funding for transition out of this location. Job ID: [id number]
--- NOTE | 2018-04-23 14:43 | PRG ---
DATE OF SERVICE: 04/23/2018 SUBJECTIVE: Mr. Cleveland keeps his eyes opened, but does not interact much. He does have some eye contact briefly. No diarrhea. OBJECTIVE: VITAL SIGNS: T-max 102 yesterday, pulse is 100, and blood pressure 117/77. HEENT: Ocular movements conjugate. Sclerae white. Nasoenteric tube in place. LUNGS: Symmetric air entry. IJ in the right neck location. ABDOMEN: Soft, not distended. LABORATORY DATA: White cell count 15.3, hemoglobin 9.0, and platelets 361. Sodium 132, creatinine 0.58. Gentamicin trough 1.0 yesterday. Microbiology, repeat two sets of blood cultures are pending at this time. The ones from April 20 negative at 48 hours. 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 Currently on Merrem and gentamicin, to be continued. Gentamicin dose has been adjusted downwards to 50 t.i.d. as he has developed fever again on nosocomial complications, particularly line-associated bacteremia and fungemia need to be considered. Cultures have been taken. We would advice removal of the line and placement of a PICC line in the extremities as soon as possible. Job ID: [id number]
[2018-04-23] MEDS: Warfarin Sodium 2.5 MG TAB PO SCH (17:54)
[2018-04-23 19:54] LABS: Vancomycin, Trough 16.6 ug/mL
[2018-04-23] MEDS: Acetaminophen 650 MG/20.3 ML UDCUP PER TUBE PRN (20:31)
[2018-04-24] MEDS: Meropenem 2 GM in Sodium Chloride 0.9% 100 ML IVPB SCH ×3 (00:11→17:14)
[2018-04-24] MEDS: Vancomycin HCl 1 GM in Premix Bag 1 BAG IVPB SCH ×3 (03:03→21:13)
[2018-04-24 03:46] LABS: INR-International Normal Ratio 1.2; Prothrombin Time 15.4 SEC (12.0-14.7)
[2018-04-24 04:02] LABS: Anion Gap 11 mmol/L (10-20); BUN (Urea Nitrogen) 18 mg/dL (8.9-20.6); Calc. Creatinine Clearance 123 mL/min (70-130); Calcium 9.1 mg/dL (7.8-10.44); Carbon Dioxide 21 mmol/L (22-29); Chloride 104 mmol/L (98-107); Estimated GFR-MDRD Greater than 90; Glucose 129 mg/dL (70-105); Potassium 4.1 mmol/L (3.5-5.1); Sodium 132 mmol/L (136-145)
[2018-04-24 04:08] LABS: Band 4 % (5-11); Hemoglobin 9.8 g/dL (14.0-18.0); Hypochromia SLIGHT = 6-15 cells (100X) (0-5/hpf); Lymphocytes 4 % (21-51); MDiff Complete? YES; Mean Corpuscular HGB CONC 33.3 g/dL (32.0-36.0); Mean Corpuscular Hemoglobin 29.1 pg (27.0-31.0); Mean Corpuscular Volume 87.3 fL (78.0-98.0); Mean Platelet Volume 7.9 fL (7.4-10.4); Monocytes 4 % (0-10); Neutrophil 88 % (42-75); Platelet Count 421 thou/uL (130-400); Platelet Morphology Comment Appears Adequate; Red Blood Cell (RBC) Count 3.38 mill/uL (4.70-6.10); White Blood Cell (WBC) Count 17.6 thou/uL (4.8-10.8)
[2018-04-24] MEDS: SODIUM CHLORIDE 0.9% IVPB SCH ×3 (05:47→21:14)
[2018-04-24] MEDS: GENTAMICIN SULFATE IVPB SCH ×3 (05:47→21:14)
[2018-04-24] MEDS: Acetaminophen 650 MG/20.3 ML UDCUP PER TUBE PRN ×2 (09:23→21:19)
[2018-04-24] MEDS: Folic Acid 1 MG TAB PER TUBE SCH (09:24)
[2018-04-24] MEDS: Pantoprazole 40 MG VIAL IVP SCH ×2 (09:24→21:15)
[2018-04-24] MEDS: levETIRAcetam 500 mg/5 ml Oral Solution PER TUBE SCH ×2 (09:24→21:14)
[2018-04-24] MEDS: Sodium Chloride 0.9% (PF) 10 ML VIAL FS SCH ×2 (09:25→21:15)
--- NOTE | 2018-04-24 09:38 | PDOC.PN ---
- Subjective Encounter Start Date: 04/24/18 Encounter Start Time: 09:37 Patient seen and examined, no family at bedside, no new major issues per nursing staff. - Objective Vital Signs & Weight: Vital Signs (12 hours) Temp Pulse Ox 04/24/18 08:00 100 04/24/18 07:00 98.8 F 04/24/18 04:00 98.8 F 04/24/18 00:00 97.7 F Weight Admit Weight 130 lb 9.6 oz Weight 107 lb 2.314 oz Most Recent Monitor Data Heart Rate from ECG 121 NIBP 106/87 NIBP BP-Mean 93 Respiration from ECG 20 SpO2 100 I&O: 04/23/18 04/24/18 04/25/18 06:59 06:59 06:59 Intake Total 2557.9 3299.4 830 Output Total 4380 4610 330 Balance -1822.1 -1310.6 500 Result Diagrams: 04/24/18 03:32 04/24/18 03:32 Phys Exam - Physical Examination Constitutional: NAD HEENT: PERRLA, moist MMs, sclera anicteric Neck: no nodes, no JVD, supple Respiratory: no wheezing, no rales, no rhonchi Cardiovascular: RRR, no significant murmur, no rub Gastrointestinal: soft, non-tender, no distention Musculoskeletal: no edema, pulses present B/L LE BKA Dx/Plan (1) Cardiomyopathy Code(s): I42.9 - CARDIOMYOPATHY, UNSPECIFIED Status: Acute Qualifiers: Cardiomyopathy type: unspecified Qualified Code(s): I42.9 - Cardiomyopathy , unspecified (2) Substance abuse Code(s): F19.10 - OTHER PSYCHOACTIVE SUBSTANCE ABUSE, UNCOMPLICATED Status: Acute (3) S/P aortic valve replacement Code(s): Z95.2 - PRESENCE OF PROSTHETIC HEART VALVE Status: Chronic (4) Hypotension Status: Resolved Qualifiers: Hypotension type: hypotension due to hypovolemia Qualified Code(s): I95.89 - Other hypotension; E86.1 - Hypovolemia Comment: resolved.. - Plan * pending PICC placement * no changes in plan of care otherwise * no family at bedside
--- NOTE | 2018-04-24 10:20 | PRG ---
DATE OF SERVICE: 04/24/2018 SUBJECTIVE: Cristian Cleveland is a 38-year-old gentleman, intubated in the ICU. OBJECTIVE: VITAL SIGNS: Pulse 118, saturations 100% on 2 L nasal O2, respiratory rate 32, and temperature 98.4. GENERAL: Clearly encephalopathic. No verbal communication. CHEST: Anterior rhonchi. CARDIAC: Sinus tachycardia. ABDOMEN: Distended and soft. He has a feeding tube in place. LABORATORY DATA: His lytes are normal. White count 17,000, hemoglobin and hematocrit of 9 and 29, platelet count 421. 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 He is encephalopathic. At this stage, continue antibiotics, supportive care, eventually placement. Job ID: [id number]
[2018-04-24] MEDS: Warfarin Sodium 2.5 MG TAB PO SCH (17:13)
[2018-04-25] MEDS: Meropenem 2 GM in Sodium Chloride 0.9% 100 ML IVPB SCH ×4 (00:11→23:52)
[2018-04-25] MEDS: Vancomycin HCl 1 GM in Premix Bag 1 BAG IVPB SCH (04:45)
[2018-04-25 05:25] LABS: Band 19 % (5-11); Hemoglobin 10.1 g/dL (14.0-18.0); INR-International Normal Ratio 1.2; Lymphocytes 6 % (21-51); MDiff Complete? YES; Mean Corpuscular HGB CONC 32.7 g/dL (32.0-36.0); Mean Corpuscular Hemoglobin 28.5 pg (27.0-31.0); Mean Corpuscular Volume 86.9 fL (78.0-98.0); Mean Platelet Volume 7.9 fL (7.4-10.4); Metamyelocyte 1 % (0-0); Monocytes 7 % (0-10); Neutrophil 67 % (42-75); Platelet Count 497 thou/uL (130-400); Platelet Morphology Comment Appears Increased; Prothrombin Time 15.3 SEC (12.0-14.7); RBC Distribution Width 17.3 % (11.5-14.5); Red Blood Cell (RBC) Count 3.54 mill/uL (4.70-6.10); White Blood Cell (WBC) Count 13.9 thou/uL (4.8-10.8)
[2018-04-25 05:37] LABS: Vancomycin, Trough 10.4 ug/mL
[2018-04-25 05:38] LABS: Anion Gap 13 mmol/L (10-20); BUN (Urea Nitrogen) 22 mg/dL (8.9-20.6); Calc. Creatinine Clearance 108 mL/min (70-130); Calcium 9.5 mg/dL (7.8-10.44); Carbon Dioxide 20 mmol/L (22-29); Chloride 102 mmol/L (98-107); Estimated GFR-MDRD Greater than 90; Glucose 123 mg/dL (70-105); Potassium 4.1 mmol/L (3.5-5.1); Sodium 131 mmol/L (136-145)
[2018-04-25] MEDS: GENTAMICIN SULFATE IVPB SCH ×3 (06:56→22:47)
[2018-04-25] MEDS: SODIUM CHLORIDE 0.9% IVPB SCH ×3 (06:56→22:47)
[2018-04-25] MEDS: Pantoprazole 40 MG VIAL IVP SCH ×2 (08:39→20:21)
[2018-04-25] MEDS: Sodium Chloride 0.9% (PF) 10 ML VIAL FS SCH ×2 (08:39→20:21)
[2018-04-25] MEDS: Folic Acid 1 MG TAB PER TUBE SCH (08:39)
--- NOTE | 2018-04-25 09:24 | PRG ---
DATE OF SERVICE: 04/25/2018 SUBJECTIVE: This morning, he is a little bit more responsive. Still tachycardic at 120. OBJECTIVE: VITAL SIGNS: Temperature is 99, oxygen 100% on room air, blood pressure 114/81, and respirations 34. GENERAL: He is more responsive, still failed the swallow test yesterday. His I's and O's have been even. CHEST: No wheezing. No crackles. CARDIAC: Sinus tach. ABDOMEN: Distended and soft. NEUROLOGIC: He opens his eyes appropriately. LABORATORY DATA: His white count 13,000, hemoglobin and hematocrit of 10 and 30, platelet count 497. His sodium is 131. IMPRESSION: 1. Gram-negative endocarditis. 2. Multiorgan failure. 3. Encephalopathy. 4. Cardiomyopathy. 5. Intracerebral hemorrhage. PLAN: Continue supportive care. Hopefully, if he passes the swallow test, we can start nutrition. We will follow. Job ID: [id number]
[2018-04-25] MEDS: levETIRAcetam 500 mg/5 ml Oral Solution PER TUBE SCH ×2 (10:16→20:21)
--- NOTE | 2018-04-25 13:02 | PDOC.PN ---
- Subjective Encounter Start Date: 04/25/18 Encounter Start Time: 12:58 patient seen and examined, no new changes from last night, all questions answered. - Objective Vital Signs & Weight: Vital Signs (12 hours) Temp Pulse Ox 04/25/18 11:36 98.0 F 04/25/18 11:00 98.0 F 04/25/18 07:42 99.1 F 100 04/25/18 04:00 98.9 F Weight Admit Weight 130 lb 9.6 oz Weight 111 lb 12.39 oz Most Recent Monitor Data Heart Rate from ECG 120 NIBP 109/89 NIBP BP-Mean 95 Respiration from ECG 30 SpO2 100 I&O: 04/24/18 04/25/18 04/26/18 06:59 06:59 06:59 Intake Total 3299.4 3586 Output Total 4610 3000 630 Balance -1310.6 586 -630 Result Diagrams: 04/25/18 05:00 04/25/18 05:00 Phys Exam - Physical Examination Constitutional: NAD HEENT: PERRLA, moist MMs, sclera anicteric NG tube in place Neck: no nodes, no JVD, supple Respiratory: no wheezing, no rales, no rhonchi borderline tachycardia faint murmur Gastrointestinal: soft, non-tender, no distention, positive bowel sounds Musculoskeletal: pulses present B/l Marisela GARDUNO Dx/Plan (1) Cardiomyopathy Code(s): I42.9 - CARDIOMYOPATHY, UNSPECIFIED Status: Acute Qualifiers: Cardiomyopathy type: unspecified Qualified Code(s): I42.9 - Cardiomyopathy , unspecified (2) Substance abuse Code(s): F19.10 - OTHER PSYCHOACTIVE SUBSTANCE ABUSE, UNCOMPLICATED Status: Acute (3) S/P aortic valve replacement Code(s): Z95.2 - PRESENCE OF PROSTHETIC HEART VALVE Status: Chronic (4) Hypotension Status: Resolved Qualifiers: Hypotension type: hypotension due to hypovolemia Qualified Code(s): I95.89 - Other hypotension; E86.1 - Hypovolemia Comment: resolved.. - Plan * swallow evaluation for today * PICC line placement pending for possible terminal press operator abx * labs in AM * if passes swallow, then can likely remove NG tube and initiate a diet, d/w patient's mother that the patient will need to eat enough to meet his caloric demand otherwise his condition is going to decline * continue current plan of care
[2018-04-25] MEDS: Vancomycin HCl 1.25 GM in Sodium Chloride 0.9% 250 ML 250 ML IVPB SCH ×2 (14:41→20:20)
[2018-04-25] MEDS: Warfarin Sodium 2.5 MG TAB PO SCH (16:57)
[2018-04-25] MEDS: Ketorolac Tromethamine 30 MG/ML VIAL IVP PRN (22:42)
[2018-04-26 03:39] LABS: INR-International Normal Ratio 1.2; Prothrombin Time 15.1 SEC (12.0-14.7)
[2018-04-26 03:48] LABS: Hemoglobin 9.3 g/dL (14.0-18.0); Hypochromia SLIGHT = 6-15 cells (100X) (0-5/hpf); Lymphocytes 5 % (21-51); MDiff Complete? YES; Mean Corpuscular HGB CONC 32.5 g/dL (32.0-36.0); Mean Corpuscular Hemoglobin 28.1 pg (27.0-31.0); Mean Corpuscular Volume 86.6 fL (78.0-98.0); Mean Platelet Volume 7.5 fL (7.4-10.4); Neutrophil 95 % (42-75); Platelet Count 514 thou/uL (130-400); Platelet Morphology Comment Appears Increased; RBC Distribution Width 16.7 % (11.5-14.5); Red Blood Cell (RBC) Count 3.29 mill/uL (4.70-6.10); White Blood Cell (WBC) Count 13.3 thou/uL (4.8-10.8)
[2018-04-26 03:54] LABS: Anion Gap 13 mmol/L (10-20); BUN (Urea Nitrogen) 25 mg/dL (8.9-20.6); Calc. Creatinine Clearance 106 mL/min (70-130); Calcium 9.2 mg/dL (7.8-10.44); Carbon Dioxide 20 mmol/L (22-29); Chloride 102 mmol/L (98-107); Estimated GFR-MDRD Greater than 90; Glucose 131 mg/dL (70-105); Potassium 4.2 mmol/L (3.5-5.1); Sodium 131 mmol/L (136-145)
[2018-04-26] MEDS: Vancomycin HCl 1.25 GM in Sodium Chloride 0.9% 250 ML 250 ML IVPB SCH ×2 (03:59→14:15)
[2018-04-26] MEDS: GENTAMICIN SULFATE IVPB SCH ×3 (05:47→22:07)
[2018-04-26] MEDS: SODIUM CHLORIDE 0.9% IVPB SCH ×3 (05:47→22:07)
--- NOTE | 2018-04-26 08:41 | RAD ---
SINGLE VIEW OF THE ABDOMEN: COMPARISON: 04/20/2018. HISTORY: Dobbhoff tube placement. FINDINGS: A single view of the abdomen shows a nonspecific, nonobstructed bowel gas pattern. A Dobbhoff tube i s seen with its tip in the stomach near the pylorus. IMPRESSION: Dobbhoff tube located in the stomach. POS: LUZMA
[2018-04-26] MEDS: Meropenem 2 GM in Sodium Chloride 0.9% 100 ML IVPB SCH ×2 (09:00→17:11)
[2018-04-26] MEDS: levETIRAcetam 500 mg/5 ml Oral Solution PER TUBE SCH ×2 (09:18→20:35)
[2018-04-26] MEDS: Folic Acid 1 MG TAB PER TUBE SCH (09:18)
[2018-04-26] MEDS: Pantoprazole 40 MG VIAL IVP SCH ×2 (09:19→20:34)
[2018-04-26] MEDS: Sodium Chloride 0.9% (PF) 10 ML VIAL FS SCH ×2 (09:19→20:34)
--- NOTE | 2018-04-26 12:33 | PDOC.PN ---
- Subjective Encounter Start Date: 04/26/18 Encounter Start Time: 12:25 Subjective: f/u for ICH on prior Coumadin, non-compliance and dysphagia receiving -: Jevity 1.2 via Dobhoff. - Objective MAR Reviewed: Yes Vital Signs & Weight: Vital Signs (12 hours) Temp Pulse Ox 04/26/18 08:00 99 04/26/18 04:05 98.9 F Weight Admit Weight 130 lb 9.6 oz Weight 126 lb 6.4 oz Most Recent Monitor Data Heart Rate from ECG 119 NIBP 114/83 NIBP BP-Mean 93 Respiration from ECG 25 SpO2 100 I&O: 04/25/18 04/26/18 04/27/18 06:59 06:59 06:59 Intake Total 3586 3846 Output Total 3000 1825 Balance 586 2020 Result Diagrams: 04/26/18 03:25 04/26/18 03:25 Additional Labs: Microbiology 04/16/18 11:16 Venous blood - Right Hand Blood Culture - Final Pseudomonas aeruginosa#1 Pseudomonas aeruginosa#2 04/16/18 11:06 Venous blood - Left Hand Blood Culture - Final Pseudomonas aeruginosa#1 Pseudomonas aeruginosa#2 04/22/18 17:43 Central Line - Right Internal Jugular vein Blood Culture - Preliminary NO GROWTH AT 48 HOURS 04/22/18 17:00 Central Line - Right Internal Jugular vein Blood Culture - Preliminary NO GROWTH AT 48 HOURS Radiology Reviewed by me: Yes (KUB - Dobhoff in place) EKG Reviewed by me: Yes (Tele - SR) Phys Exam - Physical Examination Constitutional: NAD mumbling a few words Dobhoff in nares HEENT: PERRLA, sclera anicteric, oral pharynx no lesions Neck: no nodes, no JVD, supple, full ROM Respiratory: no wheezing, no rales, no rhonchi, clear to auscultation bilateral Cardiovascular: RRR Gastrointestinal: soft, non-tender, no distention, positive bowel sounds Bilat BKA's Musculoskeletal: no edema, pulses present Neurological: moves all 4 limbs Skin: normal turgor, cap refill <2 seconds Dx/Plan (1) Bacteremia due to other bacteria Code(s): R78.81 - BACTEREMIA; B96.89 - OTH BACTERIAL AGENTS THE CAUSE OF DISEASES CLASSD ELSWHR Status: Acute Comment: Pseudomonas on initial blood cx x 2, Continue Gentamicin/Meropenem, PICC line placement pending (2) Intracranial hemorrhage Code(s): I62.9 - NONTRAUMATIC INTRACRANIAL HEMORRHAGE, UNSPECIFIED Status: Acute Comment: Secondary to coagulopathy with Coumadin (3) Sepsis Code(s): A41.9 - SEPSIS, UNSPECIFIED ORGANISM Status: Acute Qualifiers: Sepsis type: Pseudomonas Qualified Code(s): A41.52 - Sepsis due to Pseudomonas Comment: Resolved, see above, continue Gent/Meropenem (4) Cardiomyopathy Code(s): I42.9 - CARDIOMYOPATHY, UNSPECIFIED Status: Acute Qualifiers: Cardiomyopathy type: unspecified Qualified Code(s): I42.9 - Cardiomyopathy , unspecified (5) Substance abuse Code(s): F19.10 - OTHER PSYCHOACTIVE SUBSTANCE ABUSE, UNCOMPLICATED Status: Chronic (6) Coagulopathy Status: Resolved Comment: Resolved (7) Dysphagia Code(s): R13.10 - DYSPHAGIA, UNSPECIFIED Status: Acute Qualifiers: Dysphagia type: oropharyngeal phase Qualified Code(s): R13.12 - Dysphagia, oropharyngeal phase Comment: Continue Dobhoff TF's, may need to consider PEG tube for half-way nutritional needs, continue Jevity 1.2 - Plan continue antibiotics, PT/OT, psychologist social, speech therapy, respiratory therapy, DVT proph w/SCDs Continue Meropenem/Gentamicin -: Nutritional support with Jevity 1.2 -: CM for SNF options -: Transfer to medical floor -: PICC line placement today * AM lab: BMP, CBC
[2018-04-26 13:00] LABS: Vancomycin, Trough 25.5 ug/mL
--- NOTE | 2018-04-26 13:15 | RAD ---
ABDOMEN ONE VIEW: History: Dobbhoff tube placement. Comparison: Radiograph, same day. FINDINGS: Dobbhoff tube tip projects over the gastric fundus. Mildly distended loops of small bowel. Remainder of the findings are unchanged. IMPRESSION: Dobbhoff tube tip in the gastric fundus. POS: [facility]
[2018-04-26] MEDS ORDERED: Warfarin Sodium 5 MG TAB PO SCH (17:00)
[2018-04-26] MEDS: Sodium Chloride 0.9% 1,000 ML IV SCH (19:05)
[2018-04-26] MEDS: Vancomycin HCl 1 GM in Premix Bag 1 BAG IVPB SCH (20:33)
[2018-04-26] MEDS: Ketorolac Tromethamine 30 MG/ML VIAL IVP PRN (20:37)
[2018-04-27] MEDS: Meropenem 2 GM in Sodium Chloride 0.9% 100 ML IVPB SCH ×3 (00:02→16:26)
[2018-04-27] MEDS: Ketorolac Tromethamine 30 MG/ML VIAL IVP PRN ×2 (04:38→22:51)
[2018-04-27] MEDS: Vancomycin HCl 1 GM in Premix Bag 1 BAG IVPB SCH ×3 (04:40→22:30)
[2018-04-27 05:47] LABS: INR-International Normal Ratio 1.2; Prothrombin Time 15.4 SEC (12.0-14.7)
[2018-04-27 05:53] LABS: Band 16 % (5-11); Eosinophils 1 % (0-10); Hemoglobin 9.1 g/dL (14.0-18.0); Lymphocytes 6 % (21-51); MDiff Complete? YES; Mean Corpuscular HGB CONC 32.6 g/dL (32.0-36.0); Mean Corpuscular Hemoglobin 28.4 pg (27.0-31.0); Mean Platelet Volume 7.4 fL (7.4-10.4); Monocytes 7 % (0-10); Neutrophil 70 % (42-75); Platelet Count 602 thou/uL (130-400); Platelet Morphology Comment Appears Increased; RBC Distribution Width 16.6 % (11.5-14.5); White Blood Cell (WBC) Count 14.3 thou/uL (4.8-10.8)
[2018-04-27 06:10] LABS: Anion Gap 13 mmol/L (10-20); BUN (Urea Nitrogen) 25 mg/dL (8.9-20.6); Calc. Creatinine Clearance 93 mL/min (70-130); Calcium 9.6 mg/dL (7.8-10.44); Carbon Dioxide 21 mmol/L (22-29); Chloride 103 mmol/L (98-107); Estimated GFR-MDRD Greater than 90; Glucose 158 mg/dL (70-105); Potassium 4.1 mmol/L (3.5-5.1); Sodium 133 mmol/L (136-145)
[2018-04-27] MEDS: GENTAMICIN SULFATE IVPB SCH ×3 (06:20→23:30)
[2018-04-27] MEDS: SODIUM CHLORIDE 0.9% IVPB SCH ×3 (06:20→23:30)
[2018-04-27] MEDS: Folic Acid 1 MG TAB PER TUBE SCH (09:01)
[2018-04-27] MEDS: Pantoprazole 40 MG VIAL IVP SCH ×2 (09:01→22:31)
[2018-04-27] MEDS: levETIRAcetam 500 mg/5 ml Oral Solution PER TUBE SCH ×2 (09:01→22:59)
[2018-04-27] MEDS: Warfarin Sodium 5 MG TAB PO SCH ×2 (09:02→22:30)
[2018-04-27] MEDS: Sodium Chloride 0.9% (PF) 10 ML VIAL FS SCH ×2 (09:02→22:00)
--- NOTE | 2018-04-27 14:27 | PRG ---
DATE OF SERVICE: 04/27/2018 SERVICE: Pulmonary Medicine. SUBJECTIVE: The patient is doing great from respiratory standpoint. He is breathing comfortably. He is on room air. He cannot register any additional complaints. He started to move the left upper extremity ever so slightly, but can tell, he is extremely weak with it. Otherwise, there has been no interval change to his condition. OBJECTIVE: VITAL SIGNS: Afebrile, pulse 110, blood pressure 108/73, respirations 16, and saturation 100% on room air. GENERAL: The patient is awake and alert, in no apparent distress. LUNGS: Decent air entry. There is no prolonged expiratory phase or wheezing appreciated. HEART: Normal rate, regular. ABDOMEN: Soft, nontender, and nondistended. Bowel sounds are positive. MUSCULOSKELETAL: No cyanosis or clubbing. There is no pitting. NEUROLOGIC: He has dense left upper extremity paresis. LABORATORY DATA: WBC 14.3, hemoglobin 9.1, platelets 602,000. INR 1.2. Basic metabolic profile is essentially unremarkable/stable otherwise. Blood cultures x4 unremarkable. Original blood cultures are growing Pseudomonas in 2/2. Clostridium difficile antigen and toxin were previously unremarkable. ASSESSMENT: 1. Severe sepsis, resolving. 2. Bacteremia secondary to Pseudomonas aeruginosa. 3. Status epilepticus on presentation, resolved. 4. Mechanical aortic valve, in need of anticoagulation. 5. Intracranial hemorrhage. 6. Acute systolic heart failure. 7. Recent episode of heart block last week, resolved. DISCUSSION AND PLAN: The patient is doing fantastic from a respiratory standpoint. I will remove the Beckett catheter. At this point, he has no further requirements for inpatient Pulmonary or Critical Care opinion, and I will sign off. Please call with additional questions or concerns through time. The patient has a very long road ahead of him and will likely require extensive outpatient physical therapy and rehabilitation. Please let me know if I can be of any additional assistance. Job ID: [id number]
--- NOTE | 2018-04-27 16:09 | SPC ---
LEFT UPPER EXTREMITY PICC LINE WITH ULTRASOUND GUIDANCE: HISTORY: Infection. Infected heart valve. Heart valve agitation. COMPARISON: None. EXPOSURE: 0.4 minutes. 416 mGy per cm2. FINDINGS: Successful left upper extremity PICC line placement with ultrasound guidance. A dual-lumen 5-Nigerian catheter terminates in the right atrium. Trim length is 38 cm. Both lumen flush and aspirate withou t difficulty. TECHNIQUE: Consent obtained to perform ultrasound guided left upper extremity PICC line placement. The left arm was prepped and draped in a sterile fashion, and 1% Lidocaine, buffered with sodium bicarbonate, was used for local anesthesia. Under ultrasound guidance, a micropuncture needle was used to cannulate the brachial vein. A 0.018 guidewire was advanced through the needle, to the level of the superior v mikaela cava. Under fluoroscopy, the wire was advanced into the inferior vena cava, to document venous a ccess. The wire was subsequently pulled back to the right atrium. The tract was dilated. A dual-tawnya men 5-Nigerian catheter was advanced over the of wire. Both lumen flush and aspirate without difficult y. IMPRESSION: Successful left upper extremity peripherally inserted central catheter line placement with ultrasound guidance. POS: [facility]
--- NOTE | 2018-04-27 17:43 | PDOC.PN ---
- Subjective Encounter Start Date: 04/27/18 Encounter Start Time: 16:45 Subjective: f/u for ICH on Coumadin with supratherapeutic INR. Tolerating po -: intake currently with plans on Dobhoff removal. More alert today and -: interactive per family. - Objective MAR Reviewed: Yes Vital Signs & Weight: Vital Signs (12 hours) Temp Pulse Resp BP Pulse Ox 04/27/18 08:15 98.3 F 110 H 16 108/73 100 Weight Admit Weight 128 lb 4.944 oz Weight 110 lb 10.753 oz Most Recent Monitor Data Heart Rate from ECG 118 NIBP 106/74 NIBP BP-Mean 84 Respiration from ECG 25 SpO2 100 I&O: 04/26/18 04/27/18 04/28/18 06:59 06:59 06:59 Intake Total 3846 1080 30 Output Total 1825 2450 Balance 2020 -1370 30 Result Diagrams: 04/27/18 05:26 04/27/18 05:26 Additional Labs: Microbiology 04/16/18 11:16 Venous blood - Right Hand Blood Culture - Final Pseudomonas aeruginosa#1 Pseudomonas aeruginosa#2 04/16/18 11:06 Venous blood - Left Hand Blood Culture - Final Pseudomonas aeruginosa#1 Pseudomonas aeruginosa#2 04/22/18 17:43 Central Line - Right Internal Jugular vein Blood Culture - Preliminary NO GROWTH AT 48 HOURS 04/22/18 17:00 Central Line - Right Internal Jugular vein Blood Culture - Preliminary NO GROWTH AT 48 HOURS Phys Exam - Physical Examination alert, dysarthric, responds to questions Dobhoff in place HEENT: PERRLA, sclera anicteric, oral pharynx no lesions Neck: no nodes, no JVD, supple, full ROM Respiratory: no wheezing, no rales, no rhonchi, clear to auscultation bilateral S1, S2 Cardiovascular: RRR, no rub, gallop Gastrointestinal: soft, non-tender, no distention, positive bowel sounds B BKA's, stumps intact Musculoskeletal: no edema, pulses present Neurological: normal sensation, moves all 4 limbs Skin: normal turgor, cap refill <2 seconds Dx/Plan (1) Bacteremia due to other bacteria Code(s): R78.81 - BACTEREMIA; B96.89 - OTH BACTERIAL AGENTS THE CAUSE OF DISEASES CLASSD ELSWHR Status: Acute Comment: Pseudomonas on initial blood cx x 2, Continue Gentamicin/Meropenem, PICC line placement 04/27/18, plan for IV abx for 4-6 weeks (2) Intracranial hemorrhage Code(s): I62.9 - NONTRAUMATIC INTRACRANIAL HEMORRHAGE, UNSPECIFIED Status: Acute Comment: Secondary to coagulopathy with Coumadin (3) Sepsis Code(s): A41.9 - SEPSIS, UNSPECIFIED ORGANISM Status: Acute Qualifiers: Sepsis type: Pseudomonas Qualified Code(s): A41.52 - Sepsis due to Pseudomonas Comment: Resolved, see above, continue Gent/Meropenem (4) Cardiomyopathy Code(s): I42.9 - CARDIOMYOPATHY, UNSPECIFIED Status: Acute Qualifiers: Cardiomyopathy type: unspecified Qualified Code(s): I42.9 - Cardiomyopathy , unspecified (5) Substance abuse Code(s): F19.10 - OTHER PSYCHOACTIVE SUBSTANCE ABUSE, UNCOMPLICATED Status: Chronic Comment: Supportive mgmt (6) Coagulopathy Status: Resolved Comment: Resolved, INR subtherapeutic currently (7) Dysphagia Code(s): R13.10 - DYSPHAGIA, UNSPECIFIED Status: Acute Qualifiers: Dysphagia type: oropharyngeal phase Qualified Code(s): R13.12 - Dysphagia, oropharyngeal phase Comment: Improving and resolving, ROPE TIER recommending po intake, resume regular diet today, likely d/c Dobhoff FT - Plan plan discussed w/ family, continue antibiotics, PT/OT, drug abuse social worker, speech therapy, out of bed/ambulate Stable currently -: Continue Meropenem/Gentamicin -: Plan for [facility] IV abx after d/c -: Resume po intake -: D/C Dobhoff feeding tube * AM lab: BMP, CBC, PT/INR
[2018-04-27 21:59] LABS: Vancomycin, Trough 13.2 ug/mL
[2018-04-27] MEDS: Sodium Chloride 0.9% 1,000 ML IV SCH (22:46)
[2018-04-28] MEDS ORDERED: Lorazepam 2 MG/ML VIAL SLOW IVP SCH ×2 (00:15→01:00)
[2018-04-28] MEDS: Meropenem 2 GM in Sodium Chloride 0.9% 100 ML IVPB SCH ×4 (00:57→23:36)
[2018-04-28] MEDS: Acetaminophen 650 MG/20.3 ML UDCUP PER TUBE PRN (03:24)
[2018-04-28] MEDS: Vancomycin HCl 1 GM in Premix Bag 1 BAG IVPB SCH ×2 (05:27→11:57)
[2018-04-28] MEDS: GENTAMICIN SULFATE IVPB SCH ×3 (06:47→20:30)
[2018-04-28] MEDS: SODIUM CHLORIDE 0.9% IVPB SCH ×3 (06:47→20:30)
[2018-04-28 06:57] LABS: Hemoglobin 9.2 g/dL (14.0-18.0); INR-International Normal Ratio 1.3; Mean Corpuscular HGB CONC 31.8 g/dL (32.0-36.0); Mean Corpuscular Hemoglobin 28.2 pg (27.0-31.0); Mean Corpuscular Volume 88.7 fL (78.0-98.0); Mean Platelet Volume 7.3 fL (7.4-10.4); Platelet Count 575 thou/uL (130-400); Prothrombin Time 16.2 SEC (12.0-14.7); RBC Distribution Width 16.6 % (11.5-14.5); Red Blood Cell (RBC) Count 3.25 mill/uL (4.70-6.10); White Blood Cell (WBC) Count 10.3 thou/uL (4.8-10.8)
[2018-04-28 07:10] LABS: Anion Gap 15 mmol/L (10-20); BUN (Urea Nitrogen) 21 mg/dL (8.9-20.6); Calc. Creatinine Clearance 97 mL/min (70-130); Carbon Dioxide 19 mmol/L (22-29); Chloride 105 mmol/L (98-107); Estimated GFR-MDRD Greater than 90; Glucose 113 mg/dL (70-105); Potassium 4.1 mmol/L (3.5-5.1); Sodium 135 mmol/L (136-145)
[2018-04-28 07:33] LABS: Anisocytosis SLIGHT = 6-15 cells (100X) (0-5/hpf); Band 1 % (5-11); Eosinophils 1 % (0-10); Lymphocytes 10 % (21-51); MDiff Complete? YES; Monocytes 6 % (0-10); Neutrophil 82 % (42-75); Platelet Morphology Comment Appears Increased
[2018-04-28] MEDS: Warfarin Sodium 5 MG TAB PO SCH ×2 (09:50→20:28)
[2018-04-28] MEDS: Folic Acid 1 MG TAB PER TUBE SCH (09:50)
[2018-04-28] MEDS: levETIRAcetam 500 mg/5 ml Oral Solution PER TUBE SCH (09:50)
[2018-04-28] MEDS: Sodium Chloride 0.9% (PF) 10 ML VIAL FS SCH ×2 (09:51→20:25)
[2018-04-28] MEDS: Pantoprazole 40 MG VIAL IVP SCH (09:51)
[2018-04-28] MEDS: Ketorolac Tromethamine 30 MG/ML VIAL IVP PRN ×2 (11:53→20:28)
--- NOTE | 2018-04-28 14:57 | PDOC.PN ---
- Subjective Encounter Start Date: 04/28/18 Encounter Start Time: 14:50 Subjective: f/u for ICH on Coumadin with supratherapeutic INR now resolving. -: Dobhoff FT removed in last 24h. Apparently with agitation overnight -: necessitating restraints. - Objective MAR Reviewed: Yes Vital Signs & Weight: Vital Signs (12 hours) Temp Pulse Resp BP Pulse Ox 04/28/18 07:59 98.2 F 108 H 18 104/69 99 04/28/18 05:00 97.4 F L 104 H 109/72 99 Weight Admit Weight 128 lb 4.944 oz Weight 110 lb 3.698 oz Most Recent Monitor Data Heart Rate from ECG 118 NIBP 106/74 NIBP BP-Mean 84 Respiration from ECG 25 SpO2 100 I&O: 04/27/18 04/28/18 04/29/18 06:59 06:59 06:59 Intake Total 1080 30 Output Total 2450 Balance -1370 30 Result Diagrams: 04/28/18 06:14 04/28/18 06:14 Additional Labs: Microbiology 04/16/18 11:16 Venous blood - Right Hand Blood Culture - Final Pseudomonas aeruginosa#1 Pseudomonas aeruginosa#2 04/16/18 11:06 Venous blood - Left Hand Blood Culture - Final Pseudomonas aeruginosa#1 Pseudomonas aeruginosa#2 04/22/18 17:43 Central Line - Right Internal Jugular vein Blood Culture - Preliminary NO GROWTH AT 48 HOURS 04/22/18 17:00 Central Line - Right Internal Jugular vein Blood Culture - Preliminary NO GROWTH AT 48 HOURS Phys Exam - Physical Examination Constitutional: NAD HEENT: PERRLA, sclera anicteric, oral pharynx no lesions Neck: no nodes, no JVD, supple, full ROM Respiratory: no wheezing, no rales, no rhonchi, clear to auscultation bilateral S1, S2 Cardiovascular: RRR, no significant murmur, no rub, gallop Gastrointestinal: soft, non-tender, no distention, positive bowel sounds B BKA's intact Musculoskeletal: no edema, pulses present Neurological: normal sensation, moves all 4 limbs Psychiatric: A&O x 3 Skin: normal turgor, cap refill <2 seconds Dx/Plan (1) Bacteremia due to other bacteria Code(s): R78.81 - BACTEREMIA; B96.89 - OTH BACTERIAL AGENTS THE CAUSE OF DISEASES CLASSD ELSWHR Status: Acute Comment: Pseudomonas on initial blood cx x 2, Continue Gentamicin/Meropenem, PICC line placement 04/27/18, plan for IV abx for 4-6 weeks (2) Intracranial hemorrhage Code(s): I62.9 - NONTRAUMATIC INTRACRANIAL HEMORRHAGE, UNSPECIFIED Status: Acute Comment: Secondary to coagulopathy with Coumadin, INR normal currently (3) Sepsis Code(s): A41.9 - SEPSIS, UNSPECIFIED ORGANISM Status: Acute Qualifiers: Sepsis type: Pseudomonas Qualified Code(s): A41.52 - Sepsis due to Pseudomonas Comment: Resolved, see above, continue Gent/Meropenem (4) Cardiomyopathy Code(s): I42.9 - CARDIOMYOPATHY, UNSPECIFIED Status: Acute Qualifiers: Cardiomyopathy type: unspecified Qualified Code(s): I42.9 - Cardiomyopathy , unspecified (5) Substance abuse Code(s): F19.10 - OTHER PSYCHOACTIVE SUBSTANCE ABUSE, UNCOMPLICATED Status: Chronic Comment: Supportive mgmt (6) Coagulopathy Status: Resolved Comment: Resolved, INR subtherapeutic currently (7) Dysphagia Code(s): R13.10 - DYSPHAGIA, UNSPECIFIED Status: Acute Qualifiers: Dysphagia type: oropharyngeal phase Qualified Code(s): R13.12 - Dysphagia, oropharyngeal phase Comment: Improving and resolving, DOSIMETRIST recommending po intake, resume regular diet today, Dobhoff d/c'd - Plan plan discussed w/ family, continue antibiotics, PT/OT, clinical social work aide, speech therapy, out of bed/ambulate Stable overall -: D/C Vancomycin -: De-escalate abx regimen -: OOB with PT -: Change Protonix 40mg po daily * AM lab: BMP, CBC * SNF/NH options pending
[2018-04-28] MEDS: Sodium Chloride 0.9% 1,000 ML IV SCH (20:27)
[2018-04-28] MEDS: levETIRAcetam 500 mg/5 ml Oral Solution PO SCH (20:29)
[2018-04-28 21:09] LABS: Vancomycin, Trough 32.8 ug/mL
[2018-04-29] MEDS ORDERED: Lorazepam 2 MG/ML VIAL SLOW IVP SCH ×2 (01:45)
[2018-04-29] MEDS: SODIUM CHLORIDE 0.9% IVPB SCH ×3 (05:43→20:28)
[2018-04-29] MEDS: GENTAMICIN SULFATE IVPB SCH ×3 (05:43→20:28)
[2018-04-29] MEDS: Ketorolac Tromethamine 30 MG/ML VIAL IVP PRN ×2 (06:19→14:42)
[2018-04-29 06:46] LABS: INR-International Normal Ratio 1.4; Prothrombin Time 17.6 SEC (12.0-14.7)
[2018-04-29 07:06] LABS: Anion Gap 14 mmol/L (10-20); BUN (Urea Nitrogen) 15 mg/dL (8.9-20.6); Calc. Creatinine Clearance 95 mL/min (70-130); Calcium 9.4 mg/dL (7.8-10.44); Carbon Dioxide 20 mmol/L (22-29); Chloride 105 mmol/L (98-107); Estimated GFR-MDRD Greater than 90; Glucose 95 mg/dL (70-105); Potassium 4.1 mmol/L (3.5-5.1); Sodium 135 mmol/L (136-145)
[2018-04-29 07:45] LABS: Band 2 % (5-11); Eosinophils 2 % (0-10); Hemoglobin 8.6 g/dL (14.0-18.0); Lymphocytes 15 % (21-51); MDiff Complete? YES; Mean Corpuscular HGB CONC 32.1 g/dL (32.0-36.0); Mean Corpuscular Hemoglobin 28.3 pg (27.0-31.0); Mean Corpuscular Volume 88.2 fL (78.0-98.0); Mean Platelet Volume 7.2 fL (7.4-10.4); Monocytes 10 % (0-10); Neutrophil 71 % (42-75); Platelet Count 561 thou/uL (130-400); Platelet Morphology Comment Appears Increased; Polychromasia SLIGHT = 2-3 cells (100X) (0-2/hpf); RBC Distribution Width 16.5 % (11.5-14.5); Red Blood Cell (RBC) Count 3.05 mill/uL (4.70-6.10); White Blood Cell (WBC) Count 9.5 thou/uL (4.8-10.8)
[2018-04-29] MEDS: Warfarin Sodium 5 MG TAB PO SCH ×2 (09:49→20:28)
[2018-04-29] MEDS: Meropenem 2 GM in Sodium Chloride 0.9% 100 ML IVPB SCH ×3 (09:49→23:44)
[2018-04-29] MEDS: Folic Acid 1 MG TAB PER TUBE SCH (09:50)
[2018-04-29] MEDS: Sodium Chloride 0.9% (PF) 10 ML VIAL FS SCH ×2 (09:50→20:29)
--- NOTE | 2018-04-29 12:02 | PDOC.PN ---
- Subjective Encounter Start Date: 04/29/18 Encounter Start Time: 12:00 Subjective: f/u for bacteremia with Pseudomonas spp on Meropenem/Gentamicin -: Feels better overall, wants to eat more. No fever noted. Stood at bedside -: with PT yesterday. - Objective MAR Reviewed: Yes Vital Signs & Weight: Vital Signs (12 hours) Temp Pulse Resp BP Pulse Ox 04/29/18 08:00 98.5 F 121 H 100 H 107/70 16 L Weight Admit Weight 128 lb 4.944 oz Weight 97 lb 3 oz Most Recent Monitor Data Heart Rate from ECG 118 NIBP 106/74 NIBP BP-Mean 84 Respiration from ECG 25 SpO2 100 I&O: 04/28/18 04/29/18 04/30/18 06:59 06:59 06:59 Intake Total 2079 Balance 2079 Result Diagrams: 04/29/18 06:07 04/29/18 06:07 Additional Labs: Microbiology 04/16/18 11:16 Venous blood - Right Hand Blood Culture - Final Pseudomonas aeruginosa#1 Pseudomonas aeruginosa#2 04/16/18 11:06 Venous blood - Left Hand Blood Culture - Final Pseudomonas aeruginosa#1 Pseudomonas aeruginosa#2 04/22/18 17:43 Central Line - Right Internal Jugular vein Blood Culture - Preliminary NO GROWTH AT 48 HOURS 04/22/18 17:00 Central Line - Right Internal Jugular vein Blood Culture - Preliminary NO GROWTH AT 48 HOURS Phys Exam - Physical Examination Constitutional: NAD HEENT: PERRLA, sclera anicteric, oral pharynx no lesions Neck: no nodes, no JVD, supple, full ROM Respiratory: no wheezing, no rales, no rhonchi, clear to auscultation bilateral tachycardic Cardiovascular: no rub, gallop Gastrointestinal: soft, non-tender, no distention, positive bowel sounds B BKA's intact Musculoskeletal: no edema, pulses present Neurological: normal sensation, moves all 4 limbs Psychiatric: A&O x 3 Skin: normal turgor, cap refill <2 seconds Dx/Plan (1) Bacteremia due to other bacteria Code(s): R78.81 - BACTEREMIA; B96.89 - OTH BACTERIAL AGENTS THE CAUSE OF DISEASES CLASSD ELSWHR Status: Acute Comment: Pseudomonas on initial blood cx x 2, Continue Gentamicin/Meropenem, PICC line placement 04/27/18, plan for IV abx for 4-6 weeks (2) Intracranial hemorrhage Code(s): I62.9 - NONTRAUMATIC INTRACRANIAL HEMORRHAGE, UNSPECIFIED Status: Acute Comment: Secondary to coagulopathy with Coumadin, INR normal currently, resuming Coumadin (3) Sepsis Code(s): A41.9 - SEPSIS, UNSPECIFIED ORGANISM Status: Acute Qualifiers: Sepsis type: Pseudomonas Qualified Code(s): A41.52 - Sepsis due to Pseudomonas Comment: Resolved, see above, continue Gent/Meropenem x 6 weeks (4) Cardiomyopathy Code(s): I42.9 - CARDIOMYOPATHY, UNSPECIFIED Status: Acute Qualifiers: Cardiomyopathy type: unspecified Qualified Code(s): I42.9 - Cardiomyopathy , unspecified (5) Substance abuse Code(s): F19.10 - OTHER PSYCHOACTIVE SUBSTANCE ABUSE, UNCOMPLICATED Status: Chronic Comment: Supportive mgmt (6) Coagulopathy Status: Resolved Comment: Resolved, INR subtherapeutic currently (7) Dysphagia Code(s): R13.10 - DYSPHAGIA, UNSPECIFIED Status: Acute Qualifiers: Dysphagia type: oropharyngeal phase Qualified Code(s): R13.12 - Dysphagia, oropharyngeal phase Comment: Improving and resolving, ASSOCIATE FINANCIAL PLANNER recommending po intake, resume regular diet today, Dobhoff d/c'd - Plan continue antibiotics, PT/OT, social services manager, out of bed/ambulate Stable currently -: Continue Meropenem/Gentamicin for Pseudomonas -: PT/OT for mobilization -: Rehab screening -: AM lab: PT/INR * .
[2018-04-29] MEDS: levETIRAcetam 500 mg/5 ml Oral Solution PO SCH ×2 (14:42→20:28)
[2018-04-29 20:01] LABS: Bilirubin Negative (Negative); Blood, Urine Moderate (Negative); Clarity CLEAR (Clear); Glucose, Urine (Dipstick) Negative (Negative); Leukocyte Trace (Negative); Nitrite Negative (Negative); Protein, Urine (Dipstick) 30 mg/dL (Neg-Trace); Specific Gravity, Urine 1.008 (1.002-1.036); pH, Urine 7.5 (5.0-9.0)
[2018-04-29 20:03] LABS: Bacteria/HPF None Seen HPF (None Seen); Hyaline Casts/LPF 0-3 HYALINE CAST LPF (0-3 Hyaline); Pathc Cast-AUWi Flag 0.14 (0-2.49); Squamous Epithelial 0-3 HPF (0-3)
[2018-04-29 20:06] LABS: Yeast-AUWi Flag 153.5 (0-25.0)
[2018-04-29 20:12] LABS: RBC/HPF 0-3 HPF (0-3); Yeast-All Forms 2+ HPF (None Seen)
[2018-04-29] MEDS: Acetaminophen 325 MG TAB PO PRN (20:28)
[2018-04-29] MEDS: Sodium Chloride 0.9% 1,000 ML IV SCH (20:29)
[2018-04-29] MEDS: Zolpidem Tartrate 5 MG TAB PO PRN (23:44)
[2018-04-30] MEDS: SODIUM CHLORIDE 0.9% IVPB SCH ×3 (05:30→21:51)
[2018-04-30] MEDS: GENTAMICIN SULFATE IVPB SCH ×3 (05:30→21:51)
[2018-04-30] MEDS: Ketorolac Tromethamine 30 MG/ML VIAL IVP PRN ×2 (08:42→17:13)
[2018-04-30] MEDS: Meropenem 2 GM in Sodium Chloride 0.9% 100 ML IVPB SCH ×2 (08:42→17:12)
[2018-04-30] MEDS: Warfarin Sodium 5 MG TAB PO SCH (08:43)
[2018-04-30] MEDS: Folic Acid 1 MG TAB PER TUBE SCH (08:43)
[2018-04-30] MEDS: Sodium Chloride 0.9% (PF) 10 ML VIAL FS SCH ×2 (08:44→21:51)
[2018-04-30 09:51] LABS: INR-International Normal Ratio 1.7; Prothrombin Time 20.5 SEC (12.0-14.7)
[2018-04-30 09:52] LABS: Hemoglobin 9.2 g/dL (14.0-18.0); Mean Corpuscular HGB CONC 31.6 g/dL (32.0-36.0); Mean Corpuscular Volume 88.8 fL (78.0-98.0); Mean Platelet Volume 6.9 fL (7.4-10.4); Platelet Count 545 thou/uL (130-400); RBC Distribution Width 16.5 % (11.5-14.5); Red Blood Cell (RBC) Count 3.28 mill/uL (4.70-6.10); White Blood Cell (WBC) Count 6.6 thou/uL (4.8-10.8)
[2018-04-30 10:05] LABS: Anion Gap 13 mmol/L (10-20); BUN (Urea Nitrogen) 12 mg/dL (8.9-20.6); Calc. Creatinine Clearance 91 mL/min (70-130); Calcium 9.5 mg/dL (7.8-10.44); Carbon Dioxide 22 mmol/L (22-29); Chloride 107 mmol/L (98-107); Estimated GFR-MDRD Greater than 90; Glucose 114 mg/dL (70-105); Potassium 3.8 mmol/L (3.5-5.1); Sodium 138 mmol/L (136-145)
[2018-04-30 10:33] LABS: Band 21 % (5-11); Eosinophils 1 % (0-10); Lymphocytes 11 % (21-51); MDiff Complete? YES; Monocytes 2 % (0-10); Neutrophil 64 % (42-75); Reactive Lymphocytes 1 % (0-10)
[2018-04-30] MEDS: Acetaminophen 325 MG TAB PO PRN (14:20)
[2018-04-30] MEDS: levETIRAcetam 500 mg/5 ml Oral Solution PO SCH ×2 (14:51→21:50)
--- NOTE | 2018-04-30 15:31 | PDOC.PN ---
- Subjective Encounter Start Date: 04/30/18 Encounter Start Time: 15:30 Subjective: f/u for Pseudomonas bacteremia on current Meropenem/Gentamicin. -: Feels about the same today. Working with PT to stand at the bedside. - Objective MAR Reviewed: Yes Vital Signs & Weight: Vital Signs (12 hours) Temp Pulse Resp BP Pulse Ox 04/30/18 11:57 98.0 F 118 H 18 103/68 99 04/30/18 07:57 99.0 F 115 H 18 124/79 99 04/30/18 05:00 98.5 F 104 H 18 110/78 98 Weight Admit Weight 128 lb 4.944 oz Weight 93 lb 4 oz Most Recent Monitor Data Heart Rate from ECG 118 NIBP 106/74 NIBP BP-Mean 84 Respiration from ECG 25 SpO2 100 I&O: 04/29/18 04/30/18 05/01/18 06:59 06:59 06:59 Intake Total 2080 2344 Balance 2080 2344 Result Diagrams: 04/30/18 09:32 04/30/18 09:32 Additional Labs: Microbiology 04/16/18 11:16 Venous blood - Right Hand Blood Culture - Final Pseudomonas aeruginosa#1 Pseudomonas aeruginosa#2 04/16/18 11:06 Venous blood - Left Hand Blood Culture - Final Pseudomonas aeruginosa#1 Pseudomonas aeruginosa#2 04/22/18 17:43 Central Line - Right Internal Jugular vein Blood Culture - Preliminary NO GROWTH AT 48 HOURS 04/22/18 17:00 Central Line - Right Internal Jugular vein Blood Culture - Preliminary NO GROWTH AT 48 HOURS Microbiology 04/29/18 19:20 Urine voided Urine Culture - Preliminary NO GROWTH AT 24 HOURS Laboratory Tests 04/30/18 09:32 PT 20.5 H INR 1.7 Phys Exam - Physical Examination Constitutional: NAD HEENT: PERRLA, sclera anicteric, oral pharynx no lesions Neck: no nodes, no JVD, supple, full ROM Respiratory: no wheezing, no rales, no rhonchi, clear to auscultation bilateral tachycardic S1, S2 Cardiovascular: no rub, gallop Gastrointestinal: soft, non-tender, no distention, positive bowel sounds B BKA's Musculoskeletal: no edema, pulses present Neurological: normal sensation, moves all 4 limbs Skin: normal turgor, cap refill <2 seconds Dx/Plan (1) Bacteremia due to other bacteria Code(s): R78.81 - BACTEREMIA; B96.89 - OTH BACTERIAL AGENTS THE CAUSE OF DISEASES CLASSD ELSWHR Status: Acute Comment: Pseudomonas on initial blood cx x 2, Continue Gentamicin/Meropenem, PICC line placement 04/27/18, plan for IV abx for 4-6 weeks (2) Intracranial hemorrhage Code(s): I62.9 - NONTRAUMATIC INTRACRANIAL HEMORRHAGE, UNSPECIFIED Status: Acute Comment: Secondary to coagulopathy with Coumadin, INR normal currently, resuming Coumadin (3) Sepsis Code(s): A41.9 - SEPSIS, UNSPECIFIED ORGANISM Status: Acute Qualifiers: Sepsis type: Pseudomonas Qualified Code(s): A41.52 - Sepsis due to Pseudomonas Comment: Resolved, see above, continue Gent/Meropenem x 6 weeks (4) Cardiomyopathy Code(s): I42.9 - CARDIOMYOPATHY, UNSPECIFIED Status: Acute Qualifiers: Cardiomyopathy type: unspecified Qualified Code(s): I42.9 - Cardiomyopathy , unspecified (5) Substance abuse Code(s): F19.10 - OTHER PSYCHOACTIVE SUBSTANCE ABUSE, UNCOMPLICATED Status: Chronic Comment: Supportive mgmt (6) Coagulopathy Status: Resolved Comment: Resolved, INR subtherapeutic currently (7) Dysphagia Code(s): R13.10 - DYSPHAGIA, UNSPECIFIED Status: Acute Qualifiers: Dysphagia type: oropharyngeal phase Qualified Code(s): R13.12 - Dysphagia, oropharyngeal phase Comment: Improving and resolving, RN BUILDING recommending po intake, resume regular diet today, Dobhoff d/c'd - Plan continue antibiotics, PT/OT, transition social worker, out of bed/ambulate Stable currently -: Continue Meropenem/Gentamicin -: Inpt Rehab evaluation pending -: PT for mobilization/OOB -: AM lab: PT/INR * .
[2018-04-30] MEDS ORDERED: Lorazepam 2 MG/ML VIAL SLOW IVP SCH (21:45)
[2018-04-30] MEDS: Sodium Chloride 0.9% 1,000 ML IV SCH (21:50)
[2018-05-01] MEDS: Meropenem 2 GM in Sodium Chloride 0.9% 100 ML IVPB SCH ×4 (00:06→23:48)
[2018-05-01] MEDS: Acetaminophen 325 MG TAB PO PRN ×3 (04:18→23:47)
[2018-05-01] MEDS: SODIUM CHLORIDE 0.9% IVPB SCH ×2 (05:48→14:44)
[2018-05-01] MEDS: GENTAMICIN SULFATE IVPB SCH ×2 (05:48→14:44)
[2018-05-01 07:43] LABS: INR-International Normal Ratio 1.7; Prothrombin Time 20.4 SEC (12.0-14.7)
[2018-05-01 07:50] LABS: Anion Gap 13 mmol/L (10-20); BUN (Urea Nitrogen) 14 mg/dL (8.9-20.6); Calc. Creatinine Clearance 92 mL/min (70-130); Calcium 9.5 mg/dL (7.8-10.44); Carbon Dioxide 22 mmol/L (22-29); Chloride 107 mmol/L (98-107); Estimated GFR-MDRD Greater than 90; Glucose 101 mg/dL (70-105); Potassium 4.1 mmol/L (3.5-5.1); Sodium 138 mmol/L (136-145)
[2018-05-01 08:51] LABS: Band 5 % (5-11); Eosinophils 2 % (0-10); Hemoglobin 8.7 g/dL (14.0-18.0); Lymphocytes 9 % (21-51); MDiff Complete? YES; Mean Corpuscular Hemoglobin 28.8 pg (27.0-31.0); Mean Platelet Volume 6.9 fL (7.4-10.4); Monocytes 12 % (0-10); Neutrophil 72 % (42-75); Platelet Count 508 thou/uL (130-400); RBC Distribution Width 16.4 % (11.5-14.5); Red Blood Cell (RBC) Count 3.01 mill/uL (4.70-6.10)
[2018-05-01] MEDS: Folic Acid 1 MG TAB PER TUBE SCH (09:10)
[2018-05-01] MEDS: levETIRAcetam 500 mg/5 ml Oral Solution PO SCH ×2 (09:10→19:40)
[2018-05-01] MEDS: Sodium Chloride 0.9% (PF) 10 ML VIAL FS SCH ×2 (09:11→19:40)
--- NOTE | 2018-05-01 15:15 | PRG ---
DATE OF SERVICE: 05/01/2018 SUBJECTIVE: This is an unfortunate 38-year-old gentleman who has undergone aortic valve replacement and I believe he has also had possible mitral valve intervention also, who presented with not taking his medications, essentially has been here to undergo an anticoagulation again. He also has had some GI bleeding in the past. He had mental status changes. There was some thought that perhaps he was using illicit drugs. He had significant mental status changes. At this time, he seems to be more oriented today. We are waiting for the INR to be increased and would like cardiology continues on the case with this gentleman. OBJECTIVE: VITAL SIGNS: I did notice that his vital signs today showed a temperature of 98.3, heart rate 113, tachycardic, blood pressure is 119/78, respiratory rate was 20. CHEST: Clear to auscultation. CARDIOVASCULAR: Reveals a tachycardia, but appears to be regular. The aortic valve is easily audible. ABDOMEN: Soft. EXTREMITIES: He has bilateral BKAs. No lower extremity edema was appreciated. LABORATORY DATA: Today shows an INR of 1.7, hemoglobin of 8.7 with hematocrit of 27. This is a decrease from on April 19 when hemoglobin was 10. His platelet count is 508,000. Chemistries today shows sodium 138, potassium was 4.1, BUN was 14 with a creatinine of 0.68. IMPRESSION: 1. 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 He had both aortic and mitral valve replacements. Apparently according to the records, he may still be using illicit drugs. At this time, he remains on antibiotics. I have reviewed his medications and I would agree with the present medications. 2. History of confusion and delirium, which may be due to his underlying infections. However, he has improved and he appears to be more stable today. Vital signs are stable. When he was admitted, he was positive for amphetamines as well as opiates. We will continue to follow the patient with you until his INR is stable. I would suggest with his mechanical valve, an INR of at least 2.5 to 3.5. Unless he is unable to tolerate this, the worst scenario would be that he would have to have the mechanical valve replaced and then a bioprosthetic valve placed in order to prevent bleeding. Hopefully, this will not be the case. At least with a bioprosthetic valve, he would not need to be on anticoagulation. Job ID: [id number]
[2018-05-01] MEDS ORDERED: Heparin 1,000 UNITS/ML VIAL ONE (15:35)
[2018-05-01] MEDS ORDERED: Warfarin Sodium 5 MG TAB PO SCH (17:00)
[2018-05-01] MEDS: Ketorolac Tromethamine 30 MG/ML VIAL IVP SCH ×2 (18:39→23:46)
[2018-05-01] MEDS: Sodium Chloride 0.9% 1,000 ML IV SCH ×2 (18:39→19:40)
--- NOTE | 2018-05-01 23:48 | PDOC.PN ---
- Subjective Encounter Start Date: 05/01/18 Encounter Start Time: 15:25 Subjective: f/u for pseudomonas bacteremia on current Meropenem/Gentamicin -: Feels ok overall but has tachycardia. - Objective MAR Reviewed: Yes Vital Signs & Weight: Vital Signs (12 hours) Temp Pulse Resp BP Pulse Ox 05/01/18 19:36 98.6 F 112 H 18 105/72 100 Weight Admit Weight 128 lb 4.944 oz Weight 97 lb Most Recent Monitor Data Heart Rate from ECG 118 NIBP 106/74 NIBP BP-Mean 84 Respiration from ECG 25 SpO2 100 I&O: 04/30/18 05/01/18 05/02/18 06:59 06:59 06:59 Intake Total 2344 1155 2130 Balance 2344 1155 2130 Result Diagrams: 05/01/18 07:05 05/01/18 07:05 Additional Labs: Microbiology 04/29/18 19:20 Urine voided Urine Culture - Final NO GROWTH AT 48 HOURS 04/16/18 11:16 Venous blood - Right Hand Blood Culture - Final Pseudomonas aeruginosa#1 Pseudomonas aeruginosa#2 04/16/18 11:06 Venous blood - Left Hand Blood Culture - Final Pseudomonas aeruginosa#1 Pseudomonas aeruginosa#2 04/29/18 19:20 Urine voided Urine Culture - Preliminary NO GROWTH AT 24 HOURS 04/22/18 17:43 Central Line - Right Internal Jugular vein Blood Culture - Preliminary NO GROWTH AT 48 HOURS 04/22/18 17:00 Central Line - Right Internal Jugular vein Blood Culture - Preliminary NO GROWTH AT 48 HOURS Laboratory Tests 04/30/18 05/01/18 09:32 07:05 PT 20.5 H INR 1.7 1.7 Phys Exam - Physical Examination Constitutional: NAD alert, responds to questions HEENT: PERRLA, sclera anicteric, oral pharynx no lesions Neck: no nodes, no JVD, supple, full ROM Respiratory: no wheezing, no rales, no rhonchi, clear to auscultation bilateral tachycardic S1, S2 Cardiovascular: RRR, no rub, gallop Gastrointestinal: soft, non-tender, no distention, positive bowel sounds Musculoskeletal: no edema, pulses present Neurological: normal sensation, moves all 4 limbs Skin: normal turgor, cap refill <2 seconds Dx/Plan (1) Bacteremia due to other bacteria Code(s): R78.81 - BACTEREMIA; B96.89 - OTH BACTERIAL AGENTS THE CAUSE OF DISEASES CLASSD ELSWHR Status: Acute Comment: Pseudomonas on initial blood cx x 2, Continue Gentamicin/Meropenem, PICC line placement 04/27/18, plan for IV abx for 4-6 weeks (2) Intracranial hemorrhage Code(s): I62.9 - NONTRAUMATIC INTRACRANIAL HEMORRHAGE, UNSPECIFIED Status: Acute Comment: Secondary to coagulopathy with Coumadin, INR normal currently, resuming Coumadin (3) Sepsis Code(s): A41.9 - SEPSIS, UNSPECIFIED ORGANISM Status: Acute Qualifiers: Sepsis type: Pseudomonas Qualified Code(s): A41.52 - Sepsis due to Pseudomonas Comment: Resolved, see above, continue Gent/Meropenem x 6 weeks (4) Cardiomyopathy Code(s): I42.9 - CARDIOMYOPATHY, UNSPECIFIED Status: Acute Qualifiers: Cardiomyopathy type: unspecified Qualified Code(s): I42.9 - Cardiomyopathy , unspecified (5) Substance abuse Code(s): F19.10 - OTHER PSYCHOACTIVE SUBSTANCE ABUSE, UNCOMPLICATED Status: Chronic Comment: Supportive mgmt (6) Coagulopathy Status: Resolved Comment: Resolved, INR subtherapeutic currently (7) Dysphagia Code(s): R13.10 - DYSPHAGIA, UNSPECIFIED Status: Acute Qualifiers: Dysphagia type: oropharyngeal phase Qualified Code(s): R13.12 - Dysphagia, oropharyngeal phase Comment: Improving and resolving, PROTECTION AGENT recommending po intake, resume regular diet today, Dobhoff d/c'd - Plan continue antibiotics, PT/OT, social welfare research worker, respiratory therapy, out of bed/ ambulate Stable currently -: PT for mobilization -: Continue Meropenem/Gentamicin -: Rehab evaluation pending -: Continue Coumadin * AM lab: PT/INR
[2018-05-02] MEDS: Ketorolac Tromethamine 30 MG/ML VIAL IVP SCH ×4 (05:19→23:31)
[2018-05-02 07:54] LABS: INR-International Normal Ratio 1.7; Prothrombin Time 20.1 SEC (12.0-14.7)
[2018-05-02] MEDS: Meropenem 2 GM in Sodium Chloride 0.9% 100 ML IVPB SCH ×3 (08:39→23:31)
[2018-05-02] MEDS: levETIRAcetam 500 mg/5 ml Oral Solution PO SCH ×2 (08:40→19:59)
[2018-05-02] MEDS: Sodium Chloride 0.9% (PF) 10 ML VIAL FS SCH ×2 (08:40→20:00)
[2018-05-02] MEDS: Folic Acid 1 MG TAB PER TUBE SCH (08:40)
--- NOTE | 2018-05-02 14:02 | PDOC.PN ---
- Subjective Encounter Start Date: 05/02/18 Encounter Start Time: 14:00 Subjective: f/u for Pseudomonas bacteremia on Gentamicin/Meropenem. Some -: complaints of generalized pain but improved with Toradol. - Objective MAR Reviewed: Yes Vital Signs & Weight: Vital Signs (12 hours) Temp Pulse Resp BP Pulse Ox 05/02/18 08:00 97.7 F 110 H 18 119/74 100 Weight Admit Weight 128 lb 4.944 oz Weight 95 lb 3.2 oz Most Recent Monitor Data Heart Rate from ECG 118 NIBP 106/74 NIBP BP-Mean 84 Respiration from ECG 25 SpO2 100 I&O: 05/01/18 05/02/18 05/03/18 06:59 06:59 06:59 Intake Total 1155 2610 Balance 1155 2610 Result Diagrams: 05/01/18 07:05 05/01/18 07:05 Additional Labs: Microbiology 04/29/18 19:20 Urine voided Urine Culture - Final NO GROWTH AT 48 HOURS 04/16/18 11:16 Venous blood - Right Hand Blood Culture - Final Pseudomonas aeruginosa#1 Pseudomonas aeruginosa#2 04/16/18 11:06 Venous blood - Left Hand Blood Culture - Final Pseudomonas aeruginosa#1 Pseudomonas aeruginosa#2 04/29/18 19:20 Urine voided Urine Culture - Preliminary NO GROWTH AT 24 HOURS 04/22/18 17:43 Central Line - Right Internal Jugular vein Blood Culture - Preliminary NO GROWTH AT 48 HOURS 04/22/18 17:00 Central Line - Right Internal Jugular vein Blood Culture - Preliminary NO GROWTH AT 48 HOURS Laboratory Tests 04/30/18 05/01/18 05/02/18 09:32 07:05 07:16 PT 20.5 H 20.1 H INR 1.7 1.7 1.7 Phys Exam - Physical Examination Constitutional: NAD HEENT: PERRLA, sclera anicteric, oral pharynx no lesions Neck: no nodes, no JVD, supple, full ROM Respiratory: no wheezing, no rales, no rhonchi, clear to auscultation bilateral tachycardic II/ [place]AG across the precordium(chronic) Cardiovascular: no rub, gallop Gastrointestinal: soft, non-tender, no distention, positive bowel sounds Bilat BKA's Musculoskeletal: no edema, pulses present Neurological: normal sensation, moves all 4 limbs Skin: normal turgor, cap refill <2 seconds Dx/Plan (1) Bacteremia due to other bacteria Code(s): R78.81 - BACTEREMIA; B96.89 - OTH BACTERIAL AGENTS THE CAUSE OF DISEASES CLASSD ELSWHR Status: Acute Comment: Pseudomonas on initial blood cx x 2, Continue Gentamicin/Meropenem, PICC line placement 04/27/18, plan for IV abx for 4-6 weeks (2) Intracranial hemorrhage Code(s): I62.9 - NONTRAUMATIC INTRACRANIAL HEMORRHAGE, UNSPECIFIED Status: Acute Comment: Secondary to coagulopathy with Coumadin, INR normal currently, resuming Coumadin (3) Sepsis Code(s): A41.9 - SEPSIS, UNSPECIFIED ORGANISM Status: Acute Qualifiers: Sepsis type: Pseudomonas Qualified Code(s): A41.52 - Sepsis due to Pseudomonas Comment: Resolved, see above, continue Gent/Meropenem x 6 weeks (4) Cardiomyopathy Code(s): I42.9 - CARDIOMYOPATHY, UNSPECIFIED Status: Acute Qualifiers: Cardiomyopathy type: unspecified Qualified Code(s): I42.9 - Cardiomyopathy , unspecified (5) Substance abuse Code(s): F19.10 - OTHER PSYCHOACTIVE SUBSTANCE ABUSE, UNCOMPLICATED Status: Chronic Comment: Supportive mgmt (6) Coagulopathy Status: Resolved Comment: Resolved, INR subtherapeutic currently (7) Dysphagia Code(s): R13.10 - DYSPHAGIA, UNSPECIFIED Status: Acute Qualifiers: Dysphagia type: oropharyngeal phase Qualified Code(s): R13.12 - Dysphagia, oropharyngeal phase Comment: Improving and resolving, HEADING MATCHER AND ASSEMBLER recommending po intake, resume regular diet today, Dobhoff d/c'd - Plan continue antibiotics, PT/OT, manager social services Stable currently -: Continue Meropenem/Gentamicin -: Saline Lock IVF -: OOB/PT -: CM for Rehab/SNF options * Continue Coumadin * AM lab: PT/INR
[2018-05-02] MEDS: Warfarin Sodium 7.5 MG TAB PO SCH (17:36)
[2018-05-02] MEDS: Zolpidem Tartrate 5 MG TAB PO PRN (19:59)
[2018-05-02] MEDS: Acetaminophen 325 MG TAB PO PRN (19:59)
[2018-05-03] MEDS: Acetaminophen 325 MG TAB PO PRN ×2 (04:02→13:39)
[2018-05-03] MEDS: Ketorolac Tromethamine 30 MG/ML VIAL IVP SCH ×4 (05:02→23:32)
[2018-05-03 06:44] LABS: INR-International Normal Ratio 1.8
[2018-05-03] MEDS: Folic Acid 1 MG TAB PO SCH (08:52)
[2018-05-03] MEDS: Meropenem 2 GM in Sodium Chloride 0.9% 100 ML IVPB SCH ×3 (08:52→23:33)
[2018-05-03] MEDS: levETIRAcetam 500 mg/5 ml Oral Solution PO SCH ×2 (08:52→20:05)
[2018-05-03 14:14] VITALS: BMI 15.2
--- NOTE | 2018-05-03 14:53 | PRG ---
DATE OF SERVICE: 05/03/2018 SUBJECTIVE: He is feeling well. He is oriented to place and time. He follows commands. Denies any chest pain or abdominal pain. OBJECTIVE: VITAL SIGNS: T-max of 100.3 just recently, BP 108/76, pulse 122 to 134. GENERAL: Awake, alert, oriented. PICC line in place. LUNGS: Symmetric air entry. CARDIAC: S1 and S2 with a click of the aortic and mitral valve replacements. ABDOMEN: Soft. Not distended or tender. EXTREMITIES: Stumps are okay. NEUROLOGIC: He is awake. Follows commands. LABORATORY DATA: White cell count 8.0, hemoglobin 8.7, platelets 508,000, and 72% neutrophils. Sodium 138, creatinine 0.68. Blood cultures are negative. Urine culture, no growth. 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 Currently on Merrem and gentamicin. We will repeat blood cultures in view of the low-grade temperature elevation, and hopefully, it will be negative and he will defervesce again. Plan is to continue with the current regimen until May 29. There is a high risk of failure of medical treatment and may need to be referred to [place] again for surgery. Job ID: [id number]
--- NOTE | 2018-05-03 15:07 | PDOC.PN ---
- Subjective Encounter Start Date: 05/03/18 Encounter Start Time: 14:50 Subjective: f/u for sepsis with Pseudomonas bacteremia on Meropenem/Gentamicin -: Nsg noted low-grade temp elevation and persistent tachycardia. - Objective MAR Reviewed: Yes Vital Signs & Weight: Vital Signs (12 hours) Temp Pulse Resp BP Pulse Ox 05/03/18 13:40 100.3 F H 134 H 16 108/76 99 05/03/18 10:46 122 H 118/84 98 05/03/18 08:00 98.5 F 114 H 20 108/80 100 05/03/18 04:46 98.2 F 109 H 20 108/74 97 Weight Admit Weight 128 lb 4.944 oz Weight 94 lb 13.76 oz Most Recent Monitor Data Heart Rate from ECG 118 NIBP 106/74 NIBP BP-Mean 84 Respiration from ECG 25 SpO2 100 I&O: 05/02/18 05/03/18 05/04/18 06:59 06:59 06:59 Intake Total 2610 3070 Balance 2610 3070 Result Diagrams: 05/01/18 07:05 05/01/18 07:05 Additional Labs: Microbiology 04/29/18 19:20 Urine voided Urine Culture - Final NO GROWTH AT 48 HOURS 04/16/18 11:16 Venous blood - Right Hand Blood Culture - Final Pseudomonas aeruginosa#1 Pseudomonas aeruginosa#2 04/16/18 11:06 Venous blood - Left Hand Blood Culture - Final Pseudomonas aeruginosa#1 Pseudomonas aeruginosa#2 04/29/18 19:20 Urine voided Urine Culture - Preliminary NO GROWTH AT 24 HOURS 04/22/18 17:43 Central Line - Right Internal Jugular vein Blood Culture - Preliminary NO GROWTH AT 48 HOURS 04/22/18 17:00 Central Line - Right Internal Jugular vein Blood Culture - Preliminary NO GROWTH AT 48 HOURS Laboratory Tests 04/30/18 05/01/18 05/02/18 09:32 07:05 07:16 PT 20.5 H 20.1 H INR 1.7 1.7 1.7 05/03/18 05:51 PT 21.0 H INR 1.8 Radiology Reviewed by me: Yes (PCXR - pending) Phys Exam - Physical Examination alert, responsive HEENT: PERRLA, sclera anicteric, oral pharynx no lesions Neck: no nodes, no JVD, supple, full ROM Respiratory: no wheezing, no rales, no rhonchi, clear to auscultation bilateral tachycardic mech valve clicks noted in precordium, S1, S2 Gastrointestinal: soft, non-tender, no distention, positive bowel sounds Bilat BKA's Musculoskeletal: no edema, pulses present Neurological: normal sensation, moves all 4 limbs Skin: normal turgor, cap refill <2 seconds Dx/Plan (1) Bacteremia due to other bacteria Code(s): R78.81 - BACTEREMIA; B96.89 - OTH BACTERIAL AGENTS THE CAUSE OF DISEASES CLASSD ELSWHR Status: Acute Comment: Pseudomonas on initial blood cx x 2, Continue Gentamicin/Meropenem, PICC line placement 04/27/18, plan for IV abx for 4-6 weeks, recheck blood/Ucx, PCXR today due to recurrent low-grade temp (2) Intracranial hemorrhage Code(s): I62.9 - NONTRAUMATIC INTRACRANIAL HEMORRHAGE, UNSPECIFIED Status: Acute Comment: Secondary to coagulopathy with Coumadin, INR normal currently, resuming Coumadin (3) Sepsis Code(s): A41.9 - SEPSIS, UNSPECIFIED ORGANISM Status: Acute Qualifiers: Sepsis type: Pseudomonas Qualified Code(s): A41.52 - Sepsis due to Pseudomonas Comment: See above, continue Gent/Meropenem x 6 weeks (4) Cardiomyopathy Code(s): I42.9 - CARDIOMYOPATHY, UNSPECIFIED Status: Acute Qualifiers: Cardiomyopathy type: unspecified Qualified Code(s): I42.9 - Cardiomyopathy , unspecified Comment: Chronic, compensated (5) Substance abuse Code(s): F19.10 - OTHER PSYCHOACTIVE SUBSTANCE ABUSE, UNCOMPLICATED Status: Chronic Comment: Supportive mgmt (6) Coagulopathy Status: Resolved Comment: Resolved, INR subtherapeutic currently (7) Dysphagia Code(s): R13.10 - DYSPHAGIA, UNSPECIFIED Status: Acute Qualifiers: Dysphagia type: oropharyngeal phase Qualified Code(s): R13.12 - Dysphagia, oropharyngeal phase Comment: Improving and resolving, APPLIANCE MECHANIC recommending po intake, resume regular diet today, Dobhoff d/c'd - Plan plan discussed w/ family continue Meropenem/Gentamicin -: Resubmit Blood/Ucx today -: Check PCXR to r/o infiltrate -: CM for rehab options -: Plan for IV abx until 05/29/18 * Lab: BMP, CBC * AM lab: PT/INR
[2018-05-03 15:24] LABS: Anion Gap 15 mmol/L (10-20); BUN (Urea Nitrogen) 16 mg/dL (8.9-20.6); Calc. Creatinine Clearance 94 mL/min (70-130); Calcium 9.5 mg/dL (7.8-10.44); Carbon Dioxide 22 mmol/L (22-29); Chloride 104 mmol/L (98-107); Estimated GFR-MDRD Greater than 90; Glucose 107 mg/dL (70-105); Sodium 137 mmol/L (136-145)
[2018-05-03 15:37] LABS: Anisocytosis SLIGHT = 6-15 cells (100X) (0-5/hpf); Band 8 % (5-11); Hemoglobin 9.2 g/dL (14.0-18.0); Hypochromia SLIGHT = 6-15 cells (100X) (0-5/hpf); Lymphocytes 2 % (21-51); MDiff Complete? YES; Mean Corpuscular HGB CONC 31.9 g/dL (32.0-36.0); Mean Corpuscular Hemoglobin 28.4 pg (27.0-31.0); Mean Platelet Volume 6.7 fL (7.4-10.4); Monocytes 3 % (0-10); Neutrophil 87 % (42-75); Platelet Count 490 thou/uL (130-400); Platelet Morphology Comment Appears Increased; RBC Distribution Width 16.8 % (11.5-14.5); Red Blood Cell (RBC) Count 3.23 mill/uL (4.70-6.10); White Blood Cell (WBC) Count 8.3 thou/uL (4.8-10.8)
--- NOTE | 2018-05-03 16:24 | RAD ---
CHEST 1 VIEW: HISTORY: Elevated heart rate. Rise in temperature and sepsis. COMPARISON: Radiograph 04/17/2018. FINDINGS: The patient has been extubated and enteric tubes removed. left PICC is in place. Lungs without foca l airspace consolidation, pneumothorax, or effusion. There appears to be aortic valve replacement. Multiple midline sternotomy wires. IMPRESSION: No acute intrathoracic abnormality. POS: TPC
[2018-05-03] MEDS: Warfarin Sodium 7.5 MG TAB PO SCH (17:57)
[2018-05-04] MEDS: Ketorolac Tromethamine 30 MG/ML VIAL IVP SCH ×2 (05:40→11:59)
[2018-05-04 07:34] LABS: INR-International Normal Ratio 2.1; Prothrombin Time 23.5 SEC (12.0-14.7)
[2018-05-04] MEDS: Meropenem 2 GM in Sodium Chloride 0.9% 100 ML IVPB SCH ×2 (09:33→16:00)
[2018-05-04] MEDS: levETIRAcetam 500 mg/5 ml Oral Solution PO SCH (09:35)
[2018-05-04] MEDS: Folic Acid 1 MG TAB PO SCH (09:35)
--- NOTE | 2018-05-04 10:24 | PDOC.PN ---
- Subjective Encounter Start Date: 05/04/18 Encounter Start Time: 10:15 Subjective: f/u for sepsis with Pseudomonas spp on Meropenem/Gentamicin -: and intermittent fever spikes. Feels ok overall today. Appetite improved - Objective MAR Reviewed: Yes Vital Signs & Weight: Vital Signs (12 hours) Temp Pulse Resp BP Pulse Ox 05/04/18 07:56 98.8 F 117 H 20 106/73 99 Weight Admit Weight 128 lb 4.944 oz Weight 111 lb 5 oz Most Recent Monitor Data Heart Rate from ECG 118 NIBP 106/74 NIBP BP-Mean 84 Respiration from ECG 25 SpO2 100 I&O: 05/03/18 05/04/18 05/05/18 06:59 06:59 06:59 Intake Total 3070 2690 Balance 3070 2690 Result Diagrams: 05/03/18 14:54 05/03/18 14:54 Additional Labs: Microbiology 04/29/18 19:20 Urine voided Urine Culture - Final NO GROWTH AT 48 HOURS 04/16/18 11:16 Venous blood - Right Hand Blood Culture - Final Pseudomonas aeruginosa#1 Pseudomonas aeruginosa#2 04/16/18 11:06 Venous blood - Left Hand Blood Culture - Final Pseudomonas aeruginosa#1 Pseudomonas aeruginosa#2 04/29/18 19:20 Urine voided Urine Culture - Preliminary NO GROWTH AT 24 HOURS 04/22/18 17:43 Central Line - Right Internal Jugular vein Blood Culture - Preliminary NO GROWTH AT 48 HOURS 04/22/18 17:00 Central Line - Right Internal Jugular vein Blood Culture - Preliminary NO GROWTH AT 48 HOURS Laboratory Tests 04/30/18 05/01/18 05/02/18 09:32 07:05 07:16 PT 20.5 H 20.1 H INR 1.7 1.7 1.7 05/03/18 05:51 PT 21.0 H INR 1.8 Laboratory Tests 05/04/18 07:11 PT 23.5 H INR 2.1 Radiology Reviewed by me: Yes (PCXR - no acute infiltrate) Phys Exam - Physical Examination Constitutional: NAD HEENT: PERRLA, sclera anicteric, oral pharynx no lesions Neck: no nodes, no JVD, supple, full ROM Respiratory: no wheezing, no rales, no rhonchi, clear to auscultation bilateral tachycardic S1, S2 with valvular clicks Cardiovascular: gallop Gastrointestinal: soft, non-tender, no distention, positive bowel sounds bilat BKA's Musculoskeletal: no edema, pulses present Neurological: normal sensation, moves all 4 limbs Skin: normal turgor, cap refill <2 seconds Dx/Plan (1) Bacteremia due to other bacteria Code(s): R78.81 - BACTEREMIA; B96.89 - OTH BACTERIAL AGENTS THE CAUSE OF DISEASES CLASSD ELSWHR Status: Acute Comment: Pseudomonas on initial blood cx x 2, Continue Gentamicin/Meropenem, PICC line placement 04/27/18, plan for IV abx for 4-6 weeks, recheck blood/Ucx, PCXR without focal infiltrate (2) Intracranial hemorrhage Code(s): I62.9 - NONTRAUMATIC INTRACRANIAL HEMORRHAGE, UNSPECIFIED Status: Acute Comment: Secondary to coagulopathy with Coumadin, INR normal currently, resuming Coumadin (3) Sepsis Code(s): A41.9 - SEPSIS, UNSPECIFIED ORGANISM Status: Acute Qualifiers: Sepsis type: Pseudomonas Qualified Code(s): A41.52 - Sepsis due to Pseudomonas Comment: See above, continue Gent/Meropenem x 6 weeks (4) Cardiomyopathy Code(s): I42.9 - CARDIOMYOPATHY, UNSPECIFIED Status: Acute Qualifiers: Cardiomyopathy type: unspecified Qualified Code(s): I42.9 - Cardiomyopathy , unspecified Comment: Chronic, compensated (5) Substance abuse Code(s): F19.10 - OTHER PSYCHOACTIVE SUBSTANCE ABUSE, UNCOMPLICATED Status: Chronic Comment: Supportive mgmt, chronic (6) Coagulopathy Status: Resolved Comment: INR therapeutic currently (7) Dysphagia Code(s): R13.10 - DYSPHAGIA, UNSPECIFIED Status: Acute Qualifiers: Dysphagia type: oropharyngeal phase Qualified Code(s): R13.12 - Dysphagia, oropharyngeal phase Comment: Improving and resolving, OIL CHANGE TECHNICIAN recommending po intake, resume regular diet today, Dobhoff d/c'd - Plan continue antibiotics, PT/OT, healthcare social worker Stable currently -: Continue Meropenem/Gentamicin until 05/29/18 -: Await final approval for Rehab transfer -: Review recent blood/Ucx results -: AM lab: PT/INR * .
[2018-05-04] MEDS: Warfarin Sodium 7.5 MG TAB PO SCH (16:00)
[2018-05-04] MEDS: Acetaminophen 325 MG TAB PO PRN (16:01)
[2018-05-04 16:48] VITALS: BP 110/70; TEMP 98.1
--- NOTE | 2018-05-04 21:56 | DIS ---
DATE OF ADMISSION: 04/16/2018 DATE OF DISCHARGE: 05/04/2018 DISCHARGE DIAGNOSES: 1. Pseudomonas bacteremia. 2. Intracranial hemorrhage secondary to supratherapeutic INR with Coumadin conservative management. 3. Sepsis secondary to Pseudomonas species. 4. Chronic cardiomyopathy, compensated. 5. Substance abuse including methamphetamines. 6. Coagulopathy with supratherapeutic INR, resolved. 7. Dysphagia, resolved. 8. Acute hypoxic respiratory failure, resolved. 9. Seizures, chronic. 10. Bilateral [id number] amputations. CONSULTATIONS: 1. Dr. Kang with Neurosurgical Service. 2. Dr. Muir with Pulmonary Critical Care Service. 3. Dr. David Aj with Infectious Disease Service. 4. Dr. Banegas with GI Service. 5. Dr. David Madrigal with Cardiology Service. PERTINENT LAB AND X-RAY FINDINGS: Lactic acid level ranged between 1.0 to 6.2, phosphorus ranged between 2.0 to 3.6, magnesium level ranged between 1.5 to 2.2, TSH ranged between 0.46 to 1.21. CBC showed a white blood cell count ranging between 6.6 to 31.9, hemoglobin ranged between 7.6 to 10.1, platelet count ranged between 146 to 602. PT 23.5, INR 2.1 on 05/04/2018. Urine drug screen dated 04/16/2018, positive for opiates and amphetamines. Plasma alcohol level less than 10. Hepatitis B and C nonreactive, 04/17/2018. HIV 1 and 2 antigen and antibody nonreactive, 04/17/2018. Stool Hemoccult dated 04/16/2018, positive. Blood cultures x2 dated 04/16/2018 showed Pseudomonas species. Urine culture dated 04/16/2018 showed no growth at 48 hours. Repeat blood cultures dated 04/20/2018 showed no growth at 5 days. C difficile antigen and toxin dated 04/22/2018, negative. Urine culture dated 04/22/2018 showed no growth at 48 hours. Blood cultures dated 04/22/2018 showed no growth at 5 days. Blood cultures x2 dated 05/03/2018 showed no growth to date. CT of the brain without contrast dated 04/16/2018 showed extensive intraparenchymal hemorrhage with subarachnoid changes and intraventricular hemorrhage. Portable chest x-ray dated 04/16/2018 showed cardiomegaly with pulmonary vascular prominence. Endotracheal tube appropriately positioned. CT of the abdomen and pelvis dated 04/16/2018 showed bibasilar air bronchograms with questionable aspiration pneumonitis. Moderate-sized hematoma of the right iliac vasculature. 2D transthoracic echocardiogram dated 04/16/2018 showed ejection fraction of 20% to 25%. Moderate left atrial enlargement. Mechanical prosthetic valve in aortic position. Difficult to assess for endocarditis. CT of the brain without contrast dated 04/19/2018 showed 2.6 cm medial right cerebellar hemisphere intraparenchymal hematoma. Multifocal subarachnoid hemorrhage and hemorrhagic contusions in both cerebral hemispheres. Multifocal bilateral supratentorial edema. Abdominal radiographs dated 04/26/2018 showed Dobhoff feeding tube in the gastric fundus. HOSPITAL COURSE: The patient was initially admitted to the Critical Care Unit after initially presenting with general malaise, GI bleed, septic shock and respiratory failure with seizure. The patient underwent extensive evaluation including CT imaging of the brain showing evidence of intraparenchymal and subarachnoid hemorrhage diffusely. The patient was noted with coagulopathy with supratherapeutic INR in the 9 to 10 range, receiving Kcentra, vitamin K, and fresh frozen plasma. The patient was placed on mechanical ventilation for airway protection and managed for recurrent seizures likely secondary to intraparenchymal hemorrhage. The patient was followed by the Neurosurgical Service with recommendations for medical management and correction of the coagulopathy. No specific surgical intervention ensued and patient was continued on mechanical ventilation. The patient received broad-spectrum IV antibiotic coverage after initial concern for sepsis. Screening blood cultures were 2/2 positive for Pseudomonas species and patient was monitored closely for recurrent endocarditis. 2D transthoracic echocardiogram was performed without showing obvious vegetations. However, the patient was evaluated by the Infectious Disease Service with recommendations to transition to meropenem and gentamicin. The patient subsequently transitioned and weaned off mechanical ventilation and transferred to the medical floor for further evaluation. The patient was noted with persistent tachycardia and initiated on metoprolol. The patient also was requiring antiseizure medications with Keppra, as well as pain medications. The patient did receive a total of 3 units of packed red blood cells during the hospital course and monitored by the GI Service. The patient did not need further intervention with endoscopy, only correction of the coagulopathy due to Coumadin therapy. The patient underwent a PICC line placement on 04/27/2018 with plans for IV antibiotics with gentamicin and meropenem until 05/29/2018 after concern for potential endocarditis in the context of Pseudomonas bacteremia. The patient has been approved for transfer to inpatient rehabilitation to complete his antibiotic therapy, as well as receiving physical and occupational therapy. I have examined the patient at the time of discharge and discussed followup instructions. The patient verbalized understanding and agreement, ready for discharge on 05/04/2018. DISCHARGE MEDICATIONS: 1. Adderall 20 mg p.o. q.a.m. 2. Folic acid 1 mg p.o. daily. 3. Gentamicin sulfate 60 mg IV b.i.d. until 05/29/2018. 4. Keppra 500 mg p.o. b.i.d. 5. Meropenem 2 g IV t.i.d. until 05/29/2018. 6. Metoprolol-XL 12.5 mg p.o. daily. 7. Protonix 40 mg p.o. daily. 8. Thiamine 100 mg p.o. daily. 9. Coumadin 5 mg p.o. daily. 10. Ambien 5 mg p.o. at bedtime p.r.n. FOLLOWUP: The patient is to follow up with his primary care provider, Dr. Pepe Sarmiento, after discharge from inpatient rehabilitation. CONDITION ON DISCHARGE: Fair. ACTIVITY: Ad-scott, standby/contact guard assistance with bilateral lower extremity prosthesis. DIET: Regular. Supplement with Ensure Enlive b.i.d. SPECIAL INSTRUCTIONS: Recommend ongoing occupational and physical therapy with PICC line care. CODE STATUS: Full. DISPOSITION: Discharged to [facility] on 05/04/2018. Total time preparing and coordinating discharge is 38 minutes. Job ID: [id number]
== END 2018-05-04 17:26 | DRG 871 ==
LOC: ERS 10:28 → CCU 15:52 → IMCU/EMU 04-25 17:59 → T4-A 04-26 15:27 → T4-B 04-26 15:48
PROVIDERS: ADMIT Hospitalist; ATTEND Hospitalist
PROC: 5A1945Z Respiratory Ventilation, 24-96 Consecutive Hours (ICD-10-PCS; principal; 2018-04-16)
PROC: 0BH17EZ Insertion of Endotracheal Airway into Trachea, Via Natural or Artificial Opening (ICD-10-PCS; 2018-04-16)
PROC: 02H633Z Insertion of Infusion Device into Right Atrium, Percutaneous Approach (ICD-10-PCS; 2018-04-16)
PROC: 30233K1 Transfusion of Nonautologous Frozen Plasma into Peripheral Vein, Percutaneous Approach (ICD-10-PCS; 2018-04-16)
PROC: 0DH67UZ Insertion of Feeding Device into Stomach, Via Natural or Artificial Opening (ICD-10-PCS; 2018-04-20)
PROC: 02HV33Z Insertion of Infusion Device into Superior Vena Cava, Percutaneous Approach (ICD-10-PCS; 2018-04-27)
DX: A41.52 Sepsis due to Pseudomonas (principal); I50.21 Acute systolic (congestive) heart failure; I60.9 Nontraumatic subarachnoid hemorrhage, unspecified; I61.9 Nontraumatic intracerebral hemorrhage, unspecified; J96.01 Acute respiratory failure with hypoxia; J96.02 Acute respiratory failure with hypercapnia; I33.0 Acute and subacute infective endocarditis; R65.21 Severe sepsis with septic shock; G93.6 Cerebral edema; G93.40 Encephalopathy, unspecified; K92.2 Gastrointestinal hemorrhage, unspecified; I44.2 Atrioventricular block, complete; N17.9 Acute kidney failure, unspecified; I42.9 Cardiomyopathy, unspecified; D68.32 Hemorrhagic disorder due to extrinsic circulating anticoagulants; E87.1 Hypo-osmolality and hyponatremia; I95.9 Hypotension, unspecified; I10 Essential (primary) hypertension; G40.901 Epilepsy, unspecified, not intractable, with status epilepticus; F15.10 Other stimulant abuse, uncomplicated; T45.515A Adverse effect of anticoagulants, initial encounter; F98.8 Other specified behavioral and emotional disorders with onset usually occurring in childhood and adolescence; G89.29 Other chronic pain; M54.5 Low back pain; R13.12 Dysphagia, oropharyngeal phase; Z79.01 Long term (current) use of anticoagulants; Z79.899 Other long term (current) drug therapy; Z89.512 Acquired absence of left leg below knee; Z89.511 Acquired absence of right leg below knee; Z95.2 Presence of prosthetic heart valve
CPT/HCPCS: 31500; 36415; 36416; 36430; 36556; 36569; 51702; 70450; 71045; 74018; 74177; 80048; 80053; 80074; 80170; 80202; 80306; 80307; 81001; 82274; 82436; 82550; 82553; 82805; 83605; 83735; 83935; 84100; 84133; 84300; 84443; 84484; 85007; 85027; 85049; 85060; 85300; 85362; 85379; 85384; 85610; 85730; 86850; 86900; 86901; 87040; 87077; 87086; 87149; 87186; 87324; 87389; 87449; 93306; 94002; 94003; 96365; 96366; 96368; 96375; C1751; C9113; C9132; J0290; J0692; J1580; J1644; J1885; J1953; J2060; J2185; J2543; J2704; J3010; J3370; J3411; J3430; J3475; J7042; J7050; P9016; P9059; Q9966

== ENCOUNTER 2018-05-07 23:37 | Emergency (ER) | payer OTHER ==
[2018-05-08 00:25] LABS: #Basophils 0.1 thou/uL (0.0-0.2); #Eosinphils 0.3 thou/uL (0.0-0.7); #Lymphocytes 1.1 thou/uL (1.20-3.40); #Monocytes 0.8 thou/uL (0.11-0.59); #Neutrophils 6.9 thou/uL (1.40-6.50); %Basophils 0.6 % (0.0-1.0); %Eosinophils 2.9 % (0.0-10.0); %Lymphocytes 11.8 % (21.0-51.0); %Monocytes 8.4 % (0.0-10.0); %Neutrophils 76.3 % (42.0-75.0); Hemoglobin 8.6 g/dL (14.0-18.0); Mean Corpuscular HGB CONC 32.1 g/dL (32.0-36.0); Mean Corpuscular Hemoglobin 28.5 pg (27.0-31.0); Mean Corpuscular Volume 88.9 fL (78.0-98.0); Platelet Count 425 thou/uL (130-400); RBC Distribution Width 16.4 % (11.5-14.5); Red Blood Cell (RBC) Count 3.02 mill/uL (4.70-6.10)
[2018-05-08 00:42] LABS: ALT (SGPT) 33 U/L (8-55); AST (SGOT) 28 U/L (5-34); Albumin 3.7 g/dL (3.5-5.0); Alkaline Phosphatase 135 U/L (40-150); Anion Gap 13 mmol/L (10-20); BUN (Urea Nitrogen) 18 mg/dL (8.9-20.6); Bilirubin, Total 0.5 mg/dL (0.2-1.2); Calc. Creatinine Clearance 0 mL/min (70-130); Calcium 9.7 mg/dL (7.8-10.44); Carbon Dioxide 24 mmol/L (22-29); Chloride 105 mmol/L (98-107); Estimated GFR-MDRD Greater than 90; Globulin 4.1 g/dL (2.4-3.5); Glucose 90 mg/dL (70-105); Potassium 4.2 mmol/L (3.5-5.1); Protein, Total 7.8 g/dL (6.0-8.3); Sodium 138 mmol/L (136-145)
--- NOTE | 2018-05-08 09:44 | CT ---
PRELIMINARY REPORT/[facility]/EMERGENTY AFTER-HOURS PROCEDURE Addendum created by Alex Miramontes MD on 05/08/2018 6:54 AM Central Time ( & [place]) There is a small 9mm splenic artery aneurysm as an incidental finding. Initial Report created on 05/08/2018 2:00 AM Centra l Time ( & Adiel) CT Angiography Chest With Contrast EXAM DATE/TIME: 05/08/2018 1:13 AM CLINICAL HISTORY: 38 years old, male; Pain; Chest pain; Patient HX: M38 presents ed for chest pain starting at 1700 tod ay. PT reports SOB. PT denies bld clot HX and drug abuse. PT reports he was treated for endocarditis TECHNIQUE: Axial computed tomographic angiography images of the chest with intravenous contrast using CT angiogr aphy protocol. MIP reconstructed images were created and reviewed. COMPARISON: No relevant prior studies available. FINDINGS: Pulmonary arteries: Somewhat limited study due to motion and streak artifacts, however there is no de finite evidence of pulmonary embolism. Aorta: No acute findings. Mild ascending aortic ectasia. Lungs: Mild bilateral patchy linear and ground glass dependent atelectatic opacities. No mass. No con solidation. Few punctate nonspecific nodular opacities. Pleural space: No pneumothorax. No pleural effusion. Heart: Cardiomegaly. Aortic and mitral valve replacement. No pericardial effusion. Lymph nodes: No significant adenopathy. Bones/joints: No acute fracture. Soft tissues: No acute findings. IMPRESSION: No definite evidence of pulmonary embolism. Mild atelectasis. Cardiomegaly. Findings described above. Thank you for allowing us to participate in the care of your patient. Dictated and Authenticated by: Alex Miramontes MD 05/08/2018 2:00 AM Central Time ( & [place]iel) FINAL REPORT CT ANGIOGRAM OF THE CHEST: HISTORY: Chest pain. COMPARISON: None. TECHNIQUE: CT angiogram of the chest is performed in the axial plane. Three-dimensional reformatted images are submitted for interpretation. FINDINGS: This report is in agreement with the preliminary report by [facility]. No evidence of pulmonary artery embo lism to the level of the segmental arteries. Patchy ground-glass opacities and linear opacities like ly due to atelectasis and possibly a component of nonspecific edema. POS: [facility]
[2018-05-08] MEDS ORDERED: ISOVUE-370 76%-LOCM 1 ML ONE (16:48)
== END 2018-05-08 02:45 ==
LOC: ERS 23:37
DX: R07.9 Chest pain, unspecified (principal); I10 Essential (primary) hypertension; F41.9 Anxiety disorder, unspecified; Z79.899 Other long term (current) drug therapy; Z79.01 Long term (current) use of anticoagulants
CPT/HCPCS: 36415; 71275; 80053; 82553; 84484; 85025; 85379; 93005; 96360; Q9966

== ENCOUNTER 2018-05-25 17:42 | Inpatient (IN) | payer OTHER ==
[~2018-05-25 17:42] MED LIST: Iopamidol 370 76% 100 ML VIAL ONE
[2018-05-25] MEDS ORDERED: Piperacillin/Tazobactam 4.5 GM VIAL ONE (18:09)
[2018-05-25 18:14] LABS: #Eosinphils 0.1 thou/uL (0.0-0.7); #Lymphocytes 0.8 thou/uL (1.20-3.40); #Monocytes 0.8 thou/uL (0.11-0.59); #Neutrophils 10.9 thou/uL (1.40-6.50); %Basophils 0.1 % (0.0-1.0); %Eosinophils 0.4 % (0.0-10.0); %Lymphocytes 6.5 % (21.0-51.0); %Monocytes 6.4 % (0.0-10.0); %Neutrophils 86.6 % (42.0-75.0); Hemoglobin 9.4 g/dL (14.0-18.0); Mean Corpuscular HGB CONC 31.5 g/dL (32.0-36.0); Mean Corpuscular Hemoglobin 26.9 pg (27.0-31.0); Mean Corpuscular Volume 85.5 fL (78.0-98.0); Mean Platelet Volume 6.2 fL (7.4-10.4); Platelet Count 512 thou/uL (130-400); Red Blood Cell (RBC) Count 3.48 mill/uL (4.70-6.10); White Blood Cell (WBC) Count 12.6 thou/uL (4.8-10.8)
[2018-05-25 18:20] LABS: PTT 66.6 SEC (22.9-36.1); Prothrombin Time 28.1 SEC (12.0-14.7)
[2018-05-25 18:22] LABS: INR-International Normal Ratio 2.6
[2018-05-25] MEDS ORDERED: Ondansetron PF 4 MG/2 ML Vial ONE (18:25)
[2018-05-25] MEDS ORDERED: Acetaminophen 650 MG Suppository ONE (18:27)
[2018-05-25 18:29] LABS: Bilirubin Negative (Negative); Blood, Urine Large (Negative); Glucose, Urine (Dipstick) Negative (Negative); Leukocyte Trace (Negative); Nitrite Negative (Negative); Protein, Urine (Dipstick) Trace mg/dL (Neg-Trace); Specific Gravity, Urine 1.015 (1.005-1.030); Urobilinogen 0.2 mg/dL (0.2-1.0)
[2018-05-25 18:33] LABS: Clarity HAZY (Clear)
[2018-05-25 18:35] LABS: Bacteria/HPF 2+ HPF (None Seen); Hyaline Casts/LPF NONE SEEN LPF (0-3 Hyaline); RBC/HPF 21-50 HPF (0-3); WBC/HPF 21-50 HPF (0-3); Yeast-All Forms Rare HPF (None Seen)
[2018-05-25 18:36] LABS: ALT (SGPT) 22 U/L (8-55); AST (SGOT) 54 U/L (5-34); Albumin 3.3 g/dL (3.5-5.0); Alkaline Phosphatase 81 U/L (40-150); Anion Gap 9 mmol/L (10-20); BUN (Urea Nitrogen) 11 mg/dL (8.9-20.6); Bilirubin, Total 0.4 mg/dL (0.2-1.2); CK (CPK) 232 U/L (30-200); Calc. Creatinine Clearance 0 mL/min (70-130); Calcium 9.5 mg/dL (7.8-10.44); Carbon Dioxide 26 mmol/L (22-29); Chloride 101 mmol/L (98-107); Estimated GFR-MDRD Greater than 90; Globulin 4.2 g/dL (2.4-3.5); Glucose 113 mg/dL (70-105); Potassium 4.1 mmol/L (3.5-5.1); Protein, Total 7.5 g/dL (6.0-8.3); Sodium 132 mmol/L (136-145)
--- NOTE | 2018-05-25 19:15 | CT ---
CT OF BRAIN PERFORMED WITHOUT CONTRAST ENHANCEMENT: 05/25/18 HISTORY: Followup intracranial hemorrhage. COMPARISON: A 04/16 and 04/19/18 examinations. Ventricular and cisternal system is within normal limits. The areas of parenchymal hemorrhage have re solved, although there is some residual areas of decreased attenuation. The right cerebellar hematoma is no longer visualized. Still some focus of decreased attenuation in the right occipital region and left frontal lobes. The changes in the right frontal lobe region are more significantly resolved and are very minimal at this time. No signs of any acute blood. There is no shift of midline structures. Mastoid air cells and visualized sinuses are clear. IMPRESSION: Resolving areas of hematoma. No acute bleed. POS: [facility]
--- NOTE | 2018-05-25 19:40 | RAD ---
PORTABLE AP CHEST X-RAY 05/25/18 HISTORY: Aphasia and left sided neurological deficits. COMPARISON: 04/23/18. FINDINGS: Left sided PICC line is again noted in place with tip overlying the SVC. Postsurgical change related to median sternotomy and cardiac valve replacement are noted. Cardiac silhouette is magnified by proj ection. Linear densities seen at the medial left lung base probably related to vascular structures. L ungs are otherwise clear. There is irregular increased density overlying the left upper quadrant prob ably related to overlying artifact. There has been no significant interval change from the prior exam . IMPRESSION: No acute cardiopulmonary process. POS: [facility]
--- NOTE | 2018-05-25 20:25 | CT ---
CT ANGIOGRAM BRAIN WITH IV CONTRAST AND 3D RECONSTRUCTIONS CT ANGIOGRAM NECK WITH IV CONTRAST AND 3D RECONSTRUCTIONS 05/25/18 HISTORY: Stroke alert. Altered mental status. Patient not responding to commands. COMPARISON: None available. CT angiogram neck with IV contrast and 3D reconstructions. The aortic arch is normal in caliber. There is a common origin of the left common carotid artery, and innominate artery. The origins of the great vessels are patent. The bilateral subclavian arteries as well as the bilateral common carotid arteries are patent. The bilateral internal carotid arteries are patent and there is no focal stenosis seen according to N ASCET criteria. The left vertebral artery is dominant and patent. The right vertebral artery is smaller in caliber an d terminates in PICA. Basilar artery is patent. There is minimal atelectasis versus scarring at the posterior right upper lung zone. The visualized u pper lung zones are otherwise clear. There is an enlarged precarinal lymph node measuring 1.2 cm in short axis dimension which is nonspeci fic. Mildly prominent but nonspecific prevascular space lymph nodes are also seen but are not enlarge d by CT size criteria with largest measuring 0.8 cm in short axis dimension. There is partial visualization of median sternotomy wires. Left sided PICC line is noted in place. Th e tip of which is not imaged on this exam. CT ANGIOGRAM HEAD: The bilateral anterior cerebral arteries and right middle cerebral artery are patent. There is occlusion of the M1 segment of the left middle cerebral artery for a short segment measuring approximately 11 to 12 mm. There is flow within more peripheral arterial vessels in the left middle cerebral artery distribution distal to the level of occlusion. The right vertebral artery terminates in PICA as noted above. The basilar artery and bilateral geomorphologist ior cerebral as well as superior cerebellar arteries are patent. The posterior communicating arteries are visualized bilaterally and appear patent. No focal aneurysm is seen within the limitations of the technique of this exam. IMPRESSION: 1. 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 2. The vertebrobasilar system is patent. 3. Right middle cerebral artery as well as bilateral anterior cerebral arteries are patent. 4. Findings concerning the low density areas related to areas of prior parenchymal hemorrhage wi thin the cerebral hemispheres as well as right cerebellar hemisphere were reported on the noncontrast portion of the exam performed prior to this exam. 5. Above findings discussed with Dr. Raza in the Emergency Department on 05/25/18 at 1826 h ours. POS: [facility]
[2018-05-25 21:55] LABS: Troponin I 7.138 ng/mL (< 0.028)
[2018-05-26] MEDS ORDERED: Ondansetron PF 4 MG/2 ML Vial IVP PRN (01:05)
[2018-05-26] MEDS ORDERED: hydrALAZINE 20 MG/ML VIAL SLOW IVP PRN (01:05)
[2018-05-26] MEDS ORDERED: Guaifenesin DM 100-10/5 ML UDCUP PO PRN (01:05)
[2018-05-26] MEDS ORDERED: Dextrose 5 % And 0.9 % NaCl 1,000 ML IV SCH (01:15)
--- NOTE | 2018-05-26 02:54 | HP ---
REASON FOR ADMISSION: Sepsis, acute CVA, likely myocarditis. HISTORY OF PRESENTING ILLNESS: The patient was sent over from rehab as he became more confused and developed left-sided weakness. He also had fever of 101. Please note, majority of this history is obtained by talking to the patient's father and ER records as the patient is aphasic at present. He is not oriented. He has significant history of endocarditis with Pseudomonas bacteremia as well, which was diagnosed in April of 2018. The patient was on meropenem and gentamicin after he got discharge up until now. He has a PICC line. 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 CURRENT MEDICATIONS: The patient is on: 1. Clonidine 0.1 mg p.o. q.6 hourly. 2. Pepcid 20 mg twice daily. 3. Folic acid 1 mg p.o. daily. 4. Gentamicin 60 mg IV q.12 hourly. 5. Meropenem 2 g IV q.8 hourly. 6. Keppra 500 mg p.o. twice daily. 7. Toprol-XL 12.5 mg p.o. daily. 8. Protonix 40 mg daily. 9. Thiamine 100 mg p.o. daily. 10. Coumadin 5 mg p.o. daily. 11. Ambien 5 mg p.o. at bedtime. ALLERGIES: NO KNOWN DRUG ALLERGIES. PERSONAL HISTORY: Per prior records, the patient has used amphetamines, cannabis, and benzos in the past, is currently at rehab. FAMILY HISTORY: Cannot be obtained as the patient is not oriented. CODE STATUS: The patient is do not attempt resuscitation. This was discussed with the patient's father, Mr. Cristofer Silva, number to reach him is [phone]. REVIEW OF SYSTEMS: Cannot be obtained as the patient is not oriented at present. PHYSICAL EXAMINATION: GENERAL: The patient is a 38-year-old male, who is currently not oriented. VITAL SIGNS: Blood pressure 106/74, pulse 110 per minute, respiratory rate is 24 per minute, temperature 101.3 degrees Fahrenheit, saturating 98% on room air. NECK: Supple. No elevated JVD. HEENT: Eyes; extraocular muscles intact. Pupils reacting to light. Oral cavity, mucous membranes are dry. No exudates or congestion. CARDIOVASCULAR SYSTEM: S1 and S2 heard. Regular rhythm. There is a mechanical click heard. RESPIRATORY SYSTEM: Air entry 1+ bilateral. No rales or rhonchi. ABDOMEN: Soft. Bowel sounds heard. No tenderness, rigidity, or guarding. EXTREMITIES: The patient has bilateral below-knee amputations. He freely moves his right upper and lower extremity. VASCULAR SYSTEM: Peripheral pulses are 1+ in the upper extremities with no ischemic ulcerations or gangrene. CENTRAL NERVOUS SYSTEM: The patient appears to have left hemiparesis. Exact strength cannot be assessed as the patient is not oriented at present. He has seen freely moving his right upper and lower extremity. The patient is aphasic. He does not follow verbal stimuli. No other gross cranial nerve deficits are seen. PSYCHIATRIC: Cannot be assessed as the patient is not oriented at present. LABORATORY DATA: Chest x-ray done shows no acute cardiopulmonary process. CT brain without contrast done showed resolving areas of hematoma. No acute bleed. CT angio of brain shows short-segment occlusion of M1 segmental left middle cerebral artery. The vertebrobasilar system is patent. Right MCA, as well as bilateral VICKI are patent. White count of 12, H and H 9 and 29, platelet count 512 with 86% neutrophils. PT/INR 28 and 2.6, PTT 66. Sodium 132, serum bicarb 26, BUN 11, creatinine 0.7, serum glucose 113. AST 54, ALT 22, alkaline phosphatase 81. CK -MB 26. Troponin I peaking up to 7.13. Albumin is 3.3. CRP is 12. EKG done shows sinus tach at 127 beats per minute. CLINICAL IMPRESSION AND PLAN: The patient will be admitted to [facility] for sepsis, elevated troponin, likely myocarditis. I have discussed his clinical findings with Dr. Perry over the phone. The patient had recent Pseudomonas bacteremia and prior history of enterococcal endocarditis. He was on meropenem and gentamicin. We will continue the same for now. Repeat blood and urine cultures have been obtained. We will place him on aspirin per rectal, D5 normal saline at 75 mL per hour, Keppra 500 mg IV q.12 hourly, Protonix 40 mg IV daily, and try to give him Coumadin and Crestor orally if he is cleared for swallowing. If not he will need lovenox. MRI brain without contrast. Repeat echo transthoracic will be obtained first. I have consulted Dr. Perry for Cardiology. We will also consult Dr. Aj for Infectious Disease and Dr. Maylin Fields for Neurology. The patient's overall prognosis is guarded. I have discussed these findings with his father, Mr. Cristofer Silva. He wants him to be a do not attempt to resuscitate for now. He does mention that the patient never wanted to be resuscitated after his bilateral knee amputations. He has had a progressive downhill course with endocarditis and current sepsis with CVA in the last 6 weeks or so now. Job ID: [id number] [facility]
[2018-05-26] MEDS ORDERED: Sodium Chloride 0.9% 500 ML IV SCH (03:15)
[2018-05-26] MEDS ORDERED: Lorazepam 2 MG/ML VIAL ONE (05:04)
[2018-05-26] MEDS: Acetaminophen 650 MG Suppository PR PRN ×3 (05:06→19:27)
[2018-05-26 05:12] LABS: Cocaine Metabolite Screen Not Detected (NotDetected); Medtox Reader # READER 1; Methamphetamine Not Detected (NotDetected); Phencyclidine (PCP) Not Detected (NotDetected); THC/Cannabinoid Screen Not Detected (NotDetected)
[2018-05-26 05:13] LABS: Amphetamine Not Detected (NotDetected); Barbiturates Screen Not Detected (NotDetected); Benzodiazepine Screen Not Detected (NotDetected); Medtox Control Line Valid? VALID (VALID); Methadone Not Detected (NotDetected); Opiate Screen Not Detected (NotDetected); Oxycodone Screen Not Detected (NotDetected); Tricyclic Screen Not Detected (NotDetected)
[2018-05-26] MEDS ORDERED: Lorazepam 2 MG/ML VIAL SLOW IVP PRN (05:17)
[2018-05-26] MEDS ORDERED: Metoprolol Tartrate 5 MG/5 ML VIAL ONE (05:24)
[2018-05-26] MEDS ORDERED: Lorazepam 2 MG/ML VIAL SLOW IVP SCH (05:30)
[2018-05-26] MEDS ORDERED: Gentamicin 80 MG/2 ML VIAL IVPB SCH (06:00)
[2018-05-26] MEDS: Metoprolol Tartrate 5 MG/5 ML VIAL IVP SCH ×3 (06:23→20:47)
[2018-05-26] MEDS ORDERED: Meropenem 1 GM VIAL IVPB SCH (08:00)
[2018-05-26 08:27] LABS: #Lymphocytes 1.4 thou/uL (1.20-3.40); #Monocytes 1.5 thou/uL (0.11-0.59); #Neutrophils 16.1 thou/uL (1.40-6.50); %Basophils 0.1 % (0.0-1.0); %Eosinophils 0.2 % (0.0-10.0); %Lymphocytes 7.2 % (21.0-51.0); %Monocytes 7.7 % (0.0-10.0); %Neutrophils 84.9 % (42.0-75.0); Hemoglobin 9.6 g/dL (14.0-18.0); Mean Corpuscular HGB CONC 32.8 g/dL (32.0-36.0); Mean Corpuscular Hemoglobin 27.6 pg (27.0-31.0); Mean Corpuscular Volume 84.3 fL (78.0-98.0); Mean Platelet Volume 6.4 fL (7.4-10.4); Platelet Count 545 thou/uL (130-400); RBC Distribution Width 16.9 % (11.5-14.5); Red Blood Cell (RBC) Count 3.47 mill/uL (4.70-6.10)
[2018-05-26 08:33] LABS: Prothrombin Time 22.4 SEC (12.0-14.7)
[2018-05-26 08:43] LABS: Anion Gap 13 mmol/L (10-20); BUN (Urea Nitrogen) 7 mg/dL (8.9-20.6); Calc. Creatinine Clearance 94 mL/min (70-130); Calcium 9.5 mg/dL (7.8-10.44); Carbon Dioxide 21 mmol/L (22-29); Cardiac Risk 7.3 (Less than 4.5); Chloride 105 mmol/L (98-107); Cholesterol 102 mg/dl (< 200 Desired); Estimated GFR-MDRD Greater than 90; Glucose 139 mg/dL (70-105); HDL Cholesterol 14 mg/dL (>60 Neg Risk); LDL Cholesterol, Calculated 67 mg/dL; Potassium 3.5 mmol/L (3.5-5.1); Sodium 135 mmol/L (136-145); Triglycerides 106 mg/dL (Less than 150)
[2018-05-26] MEDS ORDERED: Haloperidol Lactate 5 MG/ML VIAL SLOW IVP PRN (09:16)
[2018-05-26] MEDS ORDERED: Haloperidol Lactate 5 MG/ML VIAL ONE (09:19)
[2018-05-26] MEDS: Aspirin 300 MG Suppository PR SCH (09:26)
[2018-05-26] MEDS: Pantoprazole 40 MG VIAL IVP SCH (09:27)
[2018-05-26] MEDS: Meropenem 2 GM in Sodium Chloride 0.9% 100 ML IVPB SCH ×2 (09:27→18:06)
[2018-05-26] MEDS: Bisacodyl 10 MG SUPP PR SCH (09:27)
[2018-05-26] MEDS ORDERED: Sodium Chloride 0.9% 1,000 ML IV SCH (09:30)
--- NOTE | 2018-05-26 09:32 | PDOC.PN ---
- Subjective Encounter Start Date: 05/26/18 Encounter Start Time: 09:30 Subjective: Admitted with acute onset of aphasia, worsening confusion and left weakness -: Associated with fever. Recently discharged to acute rehab. -: Currently aphasic, agitated and confused - Objective Resuscitation Status - Order Detail: 05/26/18 00:59 Resuscitation Status Routine Resuscitation Status: DNAR: NO Resuscitation Discussed with: d/w father Mr.Wison Silva Vital Signs & Weight: Vital Signs (12 hours) Temp Pulse Ox 05/26/18 07:21 98.1 F 05/26/18 04:08 99.9 F H 05/26/18 00:06 100.2 F H 05/25/18 23:00 100 05/25/18 21:53 99.0 F Weight Weight 114 lb Most Recent Monitor Data Heart Rate from ECG 142 NIBP 118/77 NIBP BP-Mean 90 Respiration from ECG 24 SpO2 98 I&O: 05/25/18 05/26/18 05/27/18 06:59 06:59 06:59 Intake Total 750 Output Total 1750 Balance -1000 Result Diagrams: 05/26/18 08:02 05/26/18 08:02 Additional Labs: Accuchecks 05/25/18 17:54 POC Glucose 115 H Phys Exam - Physical Examination HEENT: moist MMs Neck: no JVD, supple Respiratory: clear to auscultation bilateral Regular but tachycardic Gastrointestinal: soft, no distention, positive bowel sounds Musculoskeletal: no edema bilateral BKA noted somnolent, agitated and restless. non verbal Dx/Plan (1) Sepsis Code(s): A41.9 - SEPSIS, UNSPECIFIED ORGANISM Status: Acute Qualifiers: Sepsis type: Pseudomonas Qualified Code(s): A41.52 - Sepsis due to Pseudomonas Comment: See above, continue Gent/Meropenem x 6 weeks (2) Aphasia due to acute cerebrovascular accident (CVA) Code(s): I63.9 - CEREBRAL INFARCTION, UNSPECIFIED; R47.01 - APHASIA Status: Acute (3) Acute CVA (cerebrovascular accident) Code(s): I63.9 - CEREBRAL INFARCTION, UNSPECIFIED Status: Acute (4) Acute non-ST elevation myocardial infarction (NSTEMI) Code(s): I21.4 - NON-ST ELEVATION (NSTEMI) MYOCARDIAL INFARCTION Status: Acute (5) Pseudomonal bacteremia Code(s): R78.81 - BACTEREMIA Status: Acute (6) S/P mitral valve replacement Code(s): Z95.2 - PRESENCE OF PROSTHETIC HEART VALVE Status: Acute (7) S/P splenectomy Status: Acute (8) S/P bilateral BKA (below knee amputation) Code(s): Z89.512 - ACQUIRED ABSENCE OF LEFT LEG BELOW KNEE; Z89.511 - ACQUIRED ABSENCE OF RIGHT LEG BELOW KNEE Status: Acute (9) Seizure disorder Code(s): G40.909 - EPILEPSY, UNSP, NOT INTRACTABLE, WITHOUT STATUS EPILEPTICUS Status: Acute (10) Chronic anticoagulation Code(s): Z79.01 - CLINICAL STAFF ANESTHESIOLOGIST (CURRENT) USE OF ANTICOAGULANTS Status: Acute (11) Occlusion of left middle cerebral artery Code(s): I66.02 - OCCLUSION AND STENOSIS OF LEFT MIDDLE CEREBRAL ARTERY Status : Acute (12) Cardiomyopathy Code(s): I42.9 - CARDIOMYOPATHY, UNSPECIFIED Status: Acute Qualifiers: Cardiomyopathy type: unspecified Qualified Code(s): I42.9 - Cardiomyopathy , unspecified Comment: Chronic, compensated (13) History of endocarditis Code(s): Z86.79 - PERSONAL HISTORY OF OTHER DISEASES OF THE CIRCULATORY SYSTEM Status: Acute (14) Tachycardia Code(s): R00.0 - TACHYCARDIA, UNSPECIFIED Status: Acute (15) S/P aortic valve replacement Code(s): Z95.2 - PRESENCE OF PROSTHETIC HEART VALVE Status: Chronic (16) Acute metabolic encephalopathy Code(s): G93.41 - METABOLIC ENCEPHALOPATHY Status: Acute - Plan Fluid resuscitation with NS 1 liter bolus follow by 125cc/hr -: Continue broad spectrum antibiotics -: haldol as needed for agitation. Continue antiepileptic -: Awaiting MRI head and Echo as well as Neurology and cardiology input -: Will start heparin infusion as patient cant take orally yet. * .
[2018-05-26 10:29] LABS: Platelet Count 577 thou/uL (130-400)
[2018-05-26] MEDS: Sodium Chloride 0.9% 1,000 ML IV SCH ×2 (11:11→18:06)
[2018-05-26] MEDS: Heparin 10,000 UNITS/ 10 ML VIAL SLOW IVP SCH ×2 (11:18→18:17)
[2018-05-26] MEDS: Heparin 25,000 units/D5W 500 ML IVPB SCH (11:20)
[2018-05-26 13:47] VITALS: BMI 18.3
[2018-05-26] MEDS ORDERED: Indomethacin 50 MG SUPP PR PRN (14:09)
[2018-05-26] MEDS ORDERED: Ketorolac Tromethamine 30 MG/ML VIAL IVP SCH (14:30)
--- NOTE | 2018-05-26 15:02 | CON ---
DATE OF CONSULTATION: 05/26/2018 CHIEF COMPLAINT: CVA. HISTORY OF PRESENT ILLNESS: No family member was available for discussion. History was mostly obtained from medical chart. The patient is unable to give any medical history. The patient apparently has some garbled speech normally. He is very confused at the moment and he was unable to give any medical history. The patient was brought to the ER via EMS for possible aphasia and right-sided deficit starting at 4:30 p.m. on May 25, and there was history of fever of 100.6. The patient had a previous stroke one month ago and has been in rehab, was getting better, and was able to use his left side and he was found to have more new neurological symptoms and this case was apparently discussed and was thought to have no reason for intervention at this time. No intervention of procedure was done to him. 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 ALLERGIES: NO KNOWN DRUG ALLERGIES. MEDICATIONS: Medications list reviewed. He is on; 1. Clonidine. 2. Pepcid. 3. Folic acid. 4. Gentamicin. 5. Meropenem. 6. Keppra. 7. Toprol. 8. Protonix. 9. Thiamine. 10. Coumadin. 11. Ambien. FAMILY HISTORY: Unknown. REVIEW OF SYSTEMS: Unobtainable due to his mental status. LABORATORY DATA: Current laboratory workup; white count 19, hemoglobin 9.6, hematocrit 29.3, and platelets 545. Chemistry; sodium 135, potassium 3.5, chloride 105, bicarbonate 21, BUN 7, creatinine 0.78, glucose 139, triglycerides 106, cholesterol 102, LDL 67, HDL 14, heart disease risk ratio 7.3. INR 2.6 yesterday and 2.0 today, PT 28.1 yesterday, 22.4 today, PTT 66.6 yesterday and 54.9 today. Toxicology is negative. His CT angiography shows left M1 segment occlusion in the middle cerebral artery territory on the left side. Vertebrobasilar system is patent. He has patent right MCA and bilateral ACAs. He has areas of prior parenchymal hemorrhage within cerebral hemispheres as well as right cerebellar hemisphere. PHYSICAL EXAMINATION: VITAL SIGNS: Blood pressure 109/71, heart rate 147, temperature 100.9 degrees Fahrenheit. GENERAL APPEARANCE: He is lying in bed. He has bilateral below-knee amputations and he is moving his legs much. Motor activity is noted in the left side compared to right. He is unable to follow any commands. Appears severely confused. CHEST: He has coarse expiratory rhonchi, tachycardia. NEUROLOGICAL: The patient is unfortunately very confused, nonverbal, cannot follow any commands. Cranial nerves, pupils 4 mm, reactive. He does look around spontaneously. No gaze preference or gaze deviation is noted. No facial asymmetry noted. Tongue midline. Motor exam, bulk normal, tone is normal. Strength difficult to assess individual muscle groups, but he has very active movement of his left side and tends to flex his right arm and move his right leg against gravity. Deep tendon reflexes 2+ in upper extremities. Sensory and cerebellar unable to assess. IMPRESSION: The patient is a 38-year-old unfortunate young man with history of IV drug use and endocarditis in 2014 with mitral and aortic valve replacement, and he is on Coumadin. He was therapeutic at 2.6 yesterday but unfortunately likely had an embolic event with occlusion of the left M1 segment of the MCA resulting in new onset aphasia and right-sided weakness. Clinical history and diagnoses are most consistent with acute cerebrovascular accident. Unfortunately, he was not a candidate for interventional procedure at this time, not much can be offered to reverse the situation neurologically. RECOMMENDATIONS: Agree with plans for anticoagulation and heparin and keep INR therapeutic. Please consult Cardiology as well. I will follow up the patient with you. Job ID: [id number]
[2018-05-26] MEDS ORDERED: Clopidogrel Bisulfate 75 MG TAB ONE ×2 (15:55→15:56)
[2018-05-26] MEDS: Warfarin Sodium 5 MG TAB PO SCH (17:14)
--- NOTE | 2018-05-26 18:39 | EKG ---
Test Reason : STAT Blood Pressure : / mmHG Vent. Rate : 136 BPM Atrial Rate : 136 BPM P-R Int : 144 ms QRS Dur : 084 ms QT Int : 282 ms P-R-T Axes : 068 -08 066 degrees QTc Int : 424 ms Sinus tachycardia Possible Left atrial enlargement Nonspecific ST abnormality Poor anterior R wave progression Abnormal ECG When compared with ECG of 25-MAY-2018 18:09, (Unconfirmed) No significant change was found Confirmed by DR. Gregory FUNK (3) on 05/26/2018 6:39:35 PM Referred By: HUGO Confirmed By:DR. Gregory FUNK
--- NOTE | 2018-05-26 18:42 | EKG ---
Test Reason : STAT Blood Pressure : / mmHG Vent. Rate : 162 BPM Atrial Rate : 162 BPM P-R Int : 000 ms QRS Dur : 090 ms QT Int : 260 ms P-R-T Axes : 000 -29 090 degrees QTc Int : 426 ms narrow complex regular tachycardia Septal infarct , age undetermined Marked ST abnormality, possible lateral subendocardial injury vs reciprocal changes of acute inferior NM Abnormal ECG When compared with ECG of 26-MAY-2018 00:04, (Unconfirmed) No significant change was found Confirmed by DR. Gregory FUNK (3) on 05/26/2018 6:42:24 PM Referred By: Confirmed By:DR. Gregory FUNK
[2018-05-26] MEDS: Rosuvastatin 20 MG TAB PO SCH (20:44)
[2018-05-27] MEDS: Acetaminophen 650 MG Suppository PR PRN ×2 (00:39→09:02)
[2018-05-27] MEDS: Meropenem 2 GM in Sodium Chloride 0.9% 100 ML IVPB SCH ×3 (01:13→16:05)
[2018-05-27] MEDS: Sodium Chloride 0.9% 1,000 ML IV SCH ×3 (04:22→16:05)
[2018-05-27 05:45] LABS: INR-International Normal Ratio 2.4
[2018-05-27] MEDS: Heparin 10,000 UNITS/ 10 ML VIAL SLOW IVP SCH ×2 (05:52→14:52)
[2018-05-27] MEDS: Metoprolol Tartrate 5 MG/5 ML VIAL IVP SCH ×3 (05:54→17:54)
[2018-05-27] MEDS: Aspirin 300 MG Suppository PR SCH (08:58)
[2018-05-27] MEDS: Bisacodyl 10 MG SUPP PR SCH (08:59)
[2018-05-27] MEDS: Pantoprazole 40 MG VIAL IVP SCH (09:00)
[2018-05-27] MEDS ORDERED: Potassium Chloride 10 MEQ in Premix Bag 1 BAG IVPB SCH (09:15)
[2018-05-27] MEDS ORDERED: Potassium Chloride 40 MEQ in Sodium Chloride 0.9% 250 ML 250 ML IVPB SCH (09:45)
--- NOTE | 2018-05-27 13:31 | PRG ---
DATE OF SERVICE: 05/27/2018 CHIEF COMPLAINT: Acute CVA. HISTORY OF PRESENT ILLNESS: The patient is little more alert today compared to yesterday's visit. He is trying to follow commands, but still is restless. He is waiting on echocardiogram at this time and Cardiology consultation. He continues to have some right-sided weakness. LABORATORY WORKUP: White count 19, hemoglobin 9.6, hematocrit 29.3, platelet count 545. Chemistry; sodium 135, potassium 3.5, chloride 105, BUN 7, creatinine 0.78 , glucose 139. PHYSICAL EXAMINATION: VITAL SIGNS: Blood pressure 123/76, pulse 96, heart rate 135, temperature 98.7. VITAL SIGNS: He is alert, awake. He is nonverbal and he tries to follow commands and make eye contact, but I am not 100% sure if he is able to follow everything. HEENT: Pupils are 5 mm, brisk reaction. Tongue midline. It took a while to get the patient to open his mouth. NEUROMUSCULAR: Motor exam, he has slightly more movement in the right upper extremity. He is able to hold it up. Lower extremity is quite weak at 2/5. He has BKA. Overall, approximate strength would be 3 to 4/5 right upper extremity, 2/5 right lower extremity, and he seems to move his left side quite well. IMPRESSION: The patient is a 38-year-old man with bilateral below-knee amputation, prior history of endocarditis and mechanical valve. He currently had a left M1 segment acute infarct and he is aphasic at this time, and unfortunately, he is unable to move the right leg much and he has right-sided weakness and aphasia as a result of this new stroke. He is currently waiting for Cardiology consultation and he is on heparin in an attempt to increase his INR. RECOMMENDATIONS: Please continue plans for anticoagulation. Consider target INR of 3, if okay with Cardiology, I will follow up as needed. Job ID: [id number] [facility]
[2018-05-27] MEDS: Warfarin Sodium 5 MG TAB PO SCH (14:46)
--- NOTE | 2018-05-27 15:15 | PDOC.PN ---
- Subjective Encounter Start Date: 05/27/18 Encounter Start Time: 11:13 Subjective: Still restless but calmer today. -: Fever persist but down -: Still non verbal. - Objective Resuscitation Status - Order Detail: 05/26/18 00:59 Resuscitation Status Routine Resuscitation Status: DNAR: NO Resuscitation Discussed with: d/w father Mr.Wison Silva Vital Signs & Weight: Vital Signs (12 hours) Temp Pulse BP Pulse Ox 05/27/18 15:05 100.6 F H 05/27/18 10:55 98.7 F 05/27/18 10:00 138 H 108/72 97 05/27/18 07:19 99.6 F 05/27/18 05:00 99.6 F Weight Admit Weight 114 lb Weight 114 lb Most Recent Monitor Data Heart Rate from ECG 139 NIBP 130/93 NIBP BP-Mean 105 Respiration from ECG 37 SpO2 95 I&O: 05/26/18 05/27/18 05/28/18 06:59 06:59 06:59 Intake Total 750 4130 Output Total 1750 2250 Balance -1000 1880 Result Diagrams: 05/26/18 10:10 05/26/18 08:02 Phys Exam - Physical Examination Awake but non conversational. HEENT: PERRLA, moist MMs Neck: no JVD, supple Respiratory: no rales, no rhonchi good air entry bilaterally Regular but tachycardic. Systolic mumur metallic clicks noted Gastrointestinal: soft, no distention, positive bowel sounds Musculoskeletal: no edema bilateral BKA noted Awake buth confused and aloof. Non conversational. Moving LLL more than RLL Dx/Plan (1) Sepsis Code(s): A41.9 - SEPSIS, UNSPECIFIED ORGANISM Status: Acute Qualifiers: Sepsis type: Pseudomonas Qualified Code(s): A41.52 - Sepsis due to Pseudomonas (2) Aphasia due to acute cerebrovascular accident (CVA) Code(s): I63.9 - CEREBRAL INFARCTION, UNSPECIFIED; R47.01 - APHASIA Status: Acute (3) Acute CVA (cerebrovascular accident) Code(s): I63.9 - CEREBRAL INFARCTION, UNSPECIFIED Status: Acute (4) Acute non-ST elevation myocardial infarction (NSTEMI) Code(s): I21.4 - NON-ST ELEVATION (NSTEMI) MYOCARDIAL INFARCTION Status: Acute (5) Pseudomonal bacteremia Code(s): R78.81 - BACTEREMIA Status: Acute (6) S/P mitral valve replacement Code(s): Z95.2 - PRESENCE OF PROSTHETIC HEART VALVE Status: Acute (7) S/P splenectomy Status: Acute (8) S/P bilateral BKA (below knee amputation) Code(s): Z89.512 - ACQUIRED ABSENCE OF LEFT LEG BELOW KNEE; Z89.511 - ACQUIRED ABSENCE OF RIGHT LEG BELOW KNEE Status: Acute (9) Seizure disorder Code(s): G40.909 - EPILEPSY, UNSP, NOT INTRACTABLE, WITHOUT STATUS EPILEPTICUS Status: Acute (10) Chronic anticoagulation Code(s): Z79.01 - [facility] (CURRENT) USE OF ANTICOAGULANTS Status: Acute (11) Occlusion of left middle cerebral artery Code(s): I66.02 - OCCLUSION AND STENOSIS OF LEFT MIDDLE CEREBRAL ARTERY Status : Acute (12) Cardiomyopathy Code(s): I42.9 - CARDIOMYOPATHY, UNSPECIFIED Status: Acute Qualifiers: Cardiomyopathy type: unspecified Qualified Code(s): I42.9 - Cardiomyopathy , unspecified Comment: Chronic, compensated (13) History of endocarditis Code(s): Z86.79 - PERSONAL HISTORY OF OTHER DISEASES OF THE CIRCULATORY SYSTEM Status: Acute (14) Tachycardia Code(s): R00.0 - TACHYCARDIA, UNSPECIFIED Status: Acute (15) S/P aortic valve replacement Code(s): Z95.2 - PRESENCE OF PROSTHETIC HEART VALVE Status: Chronic (16) Acute metabolic encephalopathy Code(s): G93.41 - METABOLIC ENCEPHALOPATHY Status: Acute - Plan blood culture grew gram neg rods. Patient has been on gentamycin and merope -: Levaquin added. -: Continue heparin infusion for mechanical heart valves. -: Appreciate ID input. * .
[2018-05-27] MEDS: Heparin 25,000 units/D5W 500 ML IVPB SCH (16:22)
[2018-05-27] MEDS: Rosuvastatin 20 MG TAB PO SCH (20:16)
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
[2018-05-28] MEDS: Metoprolol Tartrate 5 MG/5 ML VIAL IVP SCH ×5 (00:28→23:37)
[2018-05-28] MEDS: Meropenem 2 GM in Sodium Chloride 0.9% 100 ML IVPB SCH ×4 (00:28→23:37)
[2018-05-28] MEDS: Sodium Chloride 0.9% 1,000 ML IV SCH ×3 (01:33→18:22)
[2018-05-28] MEDS: Acetaminophen 650 MG Suppository PR PRN (03:03)
[2018-05-28 06:19] LABS: Prothrombin Time 30.8 SEC (12.0-14.7)
[2018-05-28 06:22] LABS: ALT (SGPT) 14 U/L (8-55); AST (SGOT) 32 U/L (5-34); Albumin 2.8 g/dL (3.5-5.0); Alkaline Phosphatase 69 U/L (40-150); Anion Gap 16 mmol/L (10-20); BUN (Urea Nitrogen) 10 mg/dL (8.9-20.6); Bilirubin, Total 0.8 mg/dL (0.2-1.2); Calc. Creatinine Clearance 95 mL/min (70-130); Calcium 9.1 mg/dL (7.8-10.44); Carbon Dioxide 19 mmol/L (22-29); Chloride 105 mmol/L (98-107); Estimated GFR-MDRD Greater than 90; Glucose 107 mg/dL (70-105); Potassium 3.6 mmol/L (3.5-5.1); Protein, Total 6.8 g/dL (6.0-8.3); Sodium 136 mmol/L (136-145)
[2018-05-28 07:41] LABS: Mean Corpuscular HGB CONC 33.3 g/dL (32.0-36.0); Mean Corpuscular Hemoglobin 27.8 pg (27.0-31.0); Mean Corpuscular Volume 83.7 fL (78.0-98.0); Mean Platelet Volume 6.8 fL (7.4-10.4); Platelet Count 515 thou/uL (130-400); RBC Distribution Width 16.8 % (11.5-14.5); Red Blood Cell (RBC) Count 3.23 mill/uL (4.70-6.10); White Blood Cell (WBC) Count 23.8 thou/uL (4.8-10.8)
[2018-05-28 07:48] LABS: Band 4 % (5-11); Lymphocytes 4 % (21-51); MDiff Complete? YES; Monocytes 3 % (0-10); Neutrophil 89 % (42-75)
[2018-05-28] MEDS: Aspirin 300 MG Suppository PR SCH (09:42)
[2018-05-28] MEDS: Bisacodyl 10 MG SUPP PR SCH (09:42)
[2018-05-28] MEDS: Pantoprazole 40 MG VIAL IVP SCH (09:43)
[2018-05-28 10:18] LABS: Hemoglobin 9.5 g/dL (14.0-18.0); Platelet Count 585 thou/uL (130-400)
--- NOTE | 2018-05-28 11:56 | CON ---
DATE OF CONSULTATION: HISTORY OF PRESENT ILLNESS: The patient is an unfortunate 38-year-old gentleman , who presents with altered mental status and fever. The patient has a long cardiac history. He is previously status post aortic and mitral valve replacement in 2014. The patient was admitted recently with endocarditis. He was in rehab when he again was noted to have altered mental status. He came to the emergency room for further evaluation. The patient is unable to give any type of coherent history. PAST MEDICAL HISTORY: 1. Aortic and mitral valve replacement. 2. History of bilateral BKA. 3. History of substance abuse. PAST SURGICAL HISTORY: BKA and aortic and mitral valve replacement. ALLERGIES: NO KNOWN DRUG ALLERGIES. MEDICATIONS: See nursing list. REVIEW OF SYSTEMS: Unobtainable. FAMILY HISTORY: Unobtainable. PHYSICAL EXAMINATION: GENERAL: Obtunded patient with a blood pressure 131/100. NECK: Showed no jugular venous distention. LUNGS: Clear to auscultation. HEART: Regular rate and rhythm. Normal S1 and S2 with a prosthetic click. A 2 /6 systolic murmur. ABDOMEN: Nondistended. EXTREMITIES: Status post bilateral BKA. LABORATORY RESULTS: Sodium 136, potassium 3.6, chloride 105, bicarbonate 19, BUN 10, creatinine 0.77, glucose 107. Troponin was 7.1. White blood cell count 23.8, hemoglobin 9.0, hematocrit 27.0, and his platelets is 515. DIAGNOSTIC DATA: His EKG revealed him to have sinus tachycardia with a nonspecific ST abnormality. IMPRESSION: 1. Endocarditis. 2. Status post aortic and mitral valve replacement. 3. Non-Q-wave myocardial infarction. 4. Status post bilateral below-knee amputation. 5. History of cardiomyopathy. 6. History of illicit substance abuse. This is an unfortunate gentleman has recurrent endocarditis. He is growing out Streptococcus. The patient's prognosis is extremely poor. He is not an appropriate patient with his multiple comorbid conditions to undergo repeat valve surgery. We will check the patient's echocardiogram and follow this patient with you through his hospitalization. Job ID: [id number] [facility]
--- NOTE | 2018-05-28 15:17 | RAD ---
KUB: Date: 05/28/18 HISTORY: Dobbhoff tube placement. FINDINGS: This film was centered to evaluate the Dobbhoff tube. The tube is coiled in the stomach with the tip within the fundus region. Increased interstitial lung changes are seen which could indicate an elemen t of edema as compared to the 05/25/18 study. IMPRESSION: Dobbhoff feeding tube with tip in the fundus of the stomach. POS: TPC
--- NOTE | 2018-05-28 16:14 | PRG ---
DATE OF SERVICE: 05/28/2018 SUBJECTIVE: The patient is still somewhat obtunded. Briefly, establishes eye contact. Did not follow commands. His T-max 101.4 today at 3:00 in the morning. OBJECTIVE: VITAL SIGNS: Blood pressure 113/75. HEENT: Eyes, ocular movements conjugate. Pupils are reactive about 2 mm. PICC line has been removed. LUNGS: Symmetric air entry. HEART: S1 and S2 with a soft ejection murmur at the aortic area. ABDOMEN: Soft, not distended. LABORATORY DATA: White cell count 23.8, hemoglobin 9, and platelets 515, 89% neutrophils. Sodium 136, creatinine 0.77 with normal liver profile. Albumin 2.8. Microbiology with Stenotrophomonas maltophilia and all the sets of blood cultures that have been obtained. The patient had an echocardiogram performed and this showed a limited visualization. EF 40% to 45%. The mechanical valves and a moderate-sized vegetation on mitral valve seen. ASSESSMENT AND DISCUSSION: Endocarditis initially due to Enterococcus faecalis, which led to the valve replacements and now subsequent Pseudomonas aeruginosa endocarditis, and now with Stenotrophomonas maltophilia bacteremia, which either is due to the colonization of the previous PICC line or due to a third episode of endocarditis superimposed on the recent Pseudomonas one. We will continue the current regimen. His Pseudomonas treatment is to schedule for completion tomorrow or Thursday. It still has a vegetation, which does not necessarily correlate with the clinical response, but certainly it is a factor of poor concern for persistence. Overall prognosis poor since I do not think he would be a candidate for any renewed attempted surgical intervention and more limited to medical interventions here, looks like. The cultures from the tip of the PICC line are not yet no growth. Job ID: [id number]
[2018-05-28] MEDS ORDERED: Warfarin Sodium 5 MG TAB PO SCH (17:00)
--- NOTE | 2018-05-28 17:20 | PDOC.PN ---
- Subjective Encounter Start Date: 05/28/18 Encounter Start Time: 17:18 (late entry) Subjective: pt very altered and will not open eyes -: bleeding around the nose noted - Objective Resuscitation Status - Order Detail: 05/26/18 00:59 Resuscitation Status Routine Resuscitation Status: DNAR: NO Resuscitation Discussed with: d/w father Mr.Wison Ricardo ROSS Reviewed: Yes Vital Signs & Weight: Vital Signs (12 hours) Temp Pulse Ox 05/28/18 14:54 97.0 F L 05/28/18 07:15 99.2 F 05/28/18 06:24 97 Weight Admit Weight 114 lb Weight 114 lb Most Recent Monitor Data Heart Rate from ECG 131 NIBP 134/93 NIBP BP-Mean 106 Respiration from ECG 22 SpO2 95 I&O: 05/27/18 05/28/18 05/29/18 06:59 06:59 06:59 Intake Total 4130 3828 Output Total 2250 2650 Balance 1880 1178 Result Diagrams: 05/28/18 10:09 05/28/18 05:45 Additional Labs: Microbiology 05/26/18 14:35 Nasal swab Influenza Types A,B Direct EIA - Final 05/25/18 18:38 Venous blood - Left Arm Blood Culture - Final Stenotrophomonas maltophilia 05/25/18 18:20 Urine quan catheter Urine Culture - Final NO GROWTH AT 48 HOURS 05/25/18 18:03 Venous blood - Left Arm Blood Culture - Final Stenotrophomonas maltophilia 05/27/18 15:00 Catheter Tip Catheter Tip Culture - Preliminary Laboratory Tests 07/05/14 04/16/18 05/07/18 21:44 11:16 19:33 Troponin I 0.867 H* 0.074 H 0.041 H 05/08/18 05/25/18 05/25/18 00:13 18:03 21:00 Troponin I 0.040 H 6.012 H* 7.138 H* Radiology Reviewed by me: Yes (ECHO-MV vegetation) Phys Exam - Physical Examination slumped in bed ,moving left leg and arm .B/L BKA HEENT: PERRLA, moist MMs, sclera anicteric nasal bleeding Neck: no nodes, no JVD, supple, full ROM Respiratory: no wheezing, no rales, no rhonchi, clear to auscultation bilateral Cardiovascular: RRR Gastrointestinal: soft, non-tender b/l bka. R hemiparesis Deviation from normal: not responding to verbal or tactile stimulus.delirious Dx/Plan (1) Sepsis Code(s): A41.9 - SEPSIS, UNSPECIFIED ORGANISM Status: Acute Qualifiers: Sepsis type: Pseudomonas Qualified Code(s): A41.52 - Sepsis due to Pseudomonas (2) Acute CVA (cerebrovascular accident) Code(s): I63.9 - CEREBRAL INFARCTION, UNSPECIFIED Status: Acute Comment: Left MCA w R sided paresis (3) Infectious endocarditis Code(s): I33.0 - ACUTE AND SUBACUTE INFECTIVE ENDOCARDITIS Status: Acute (4) Acute non-ST elevation myocardial infarction (NSTEMI) Code(s): I21.4 - NON-ST ELEVATION (NSTEMI) MYOCARDIAL INFARCTION Status: Acute Comment: Demand ischemia from Infective endocarditis (5) Acute metabolic encephalopathy Code(s): G93.41 - METABOLIC ENCEPHALOPATHY Status: Acute (6) Aphasia due to acute cerebrovascular accident (CVA) Code(s): I63.9 - CEREBRAL INFARCTION, UNSPECIFIED; R47.01 - APHASIA Status: Acute (7) Occlusion of left middle cerebral artery Code(s): I66.02 - OCCLUSION AND STENOSIS OF LEFT MIDDLE CEREBRAL ARTERY Status : Acute (8) Chronic anticoagulation Code(s): Z79.01 - [employer]ANT (CURRENT) USE OF ANTICOAGULANTS Status: Chronic (9) S/P bilateral BKA (below knee amputation) Code(s): Z89.512 - ACQUIRED ABSENCE OF LEFT LEG BELOW KNEE; Z89.511 - ACQUIRED ABSENCE OF RIGHT LEG BELOW KNEE Status: Acute (10) S/P mitral valve replacement Code(s): Z95.2 - PRESENCE OF PROSTHETIC HEART VALVE Status: Chronic (11) S/P splenectomy Status: Chronic (12) Seizure disorder Code(s): G40.909 - EPILEPSY, UNSP, NOT INTRACTABLE, WITHOUT STATUS EPILEPTICUS Status: Chronic (13) History of endocarditis Code(s): Z86.79 - PERSONAL HISTORY OF OTHER DISEASES OF THE CIRCULATORY SYSTEM Status: Chronic Comment: Enterococcal fecalis in 2014,needing MVR and AVR and pseudomonas in 2017 (14) S/P aortic valve replacement Code(s): Z95.2 - PRESENCE OF PROSTHETIC HEART VALVE Status: Chronic (15) Substance abuse Code(s): F19.10 - OTHER PSYCHOACTIVE SUBSTANCE ABUSE, UNCOMPLICATED Status: Chronic Comment: Supportive mgmt, chronic - Plan respiratory therapy, incentive spirometry, DVT proph w/SCDs cont ABx. very poor prognosis.appreciate ID & cardiology Input -: CLAUDE gillette at therapeutic level.monitor -: Reduce IVF.Claude indomethacin -: am labs -: follow Cx results * . Review of Systems - Review of Systems Other: can not be obtained due to Delirium - Medications/Allergies Allergies/Adverse Reactions: Allergies Allergy/AdvReac Type Severity Reaction Status Date / Time No Known Allergies Allergy Verified 04/16/18 14:38 Medications: Current Medications Acetaminophen (Tylenol) 650 mg OK Q4H PRN PRN Reason: Headache/Fever/Mild Pain (1-3) Last Admin: 05/28/18 03:03 Dose: 650 mg Aspirin (Aspirin) 300 mg OK DAILY [facility] Last Admin: 05/28/18 09:42 Dose: 300 mg Bisacodyl (Dulcolax) 10 mg OK DAILY [facility] Last Admin: 05/28/18 09:42 Dose: Not Given Guaifenesin/Dextromethorphan (Robitussin Dm) 15 ml PO Q4H PRN PRN Reason: Cough Haloperidol Lactate (Haldol) 2 mg SLOW IVP Q4H PRN PRN Reason: Agitation Heparin Sodium (Porcine) (Heparin 1,000 Units/Ml (10 Ml)) 0 units SLOW IVP ASDIR [facility]; Protocol Last Admin: 05/27/18 14:52 Dose: 1,551 unit Hydralazine HCl (Apresoline) 10 mg SLOW IVP Q4H PRN PRN Reason: BP > 220/110 Levetiracetam 500 mg/ Device 100 mls @ 200 mls/hr IVPB BID [facility] Last Admin: 05/28/18 09:43 Dose: 100 mls Gentamicin Sulfate 60 mg/ (Sodium Chloride) 101.5 mls @ 101.5 mls/hr IVPB 0600, 1800 [facility] Stop: 05/29/18 18:01 Last Admin: 05/28/18 06:15 Dose: 101.5 mls Meropenem 2 gm/ Sodium (Chloride) 100 mls @ 200 mls/hr IVPB 0800,1600,2359 [facility] Stop: 05/29/18 16:01 Last Admin: 05/28/18 16:39 Dose: 100 mls Sodium Chloride (Normal Saline 0.9%) 1,000 mls @ 125 mls/hr IV .Q8H [facility] Last Admin: 05/28/18 12:02 Dose: 1,000 mls Levofloxacin 750 mg/ Device 150 mls @ 100 mls/hr IVPB Q24HR [facility] Last Admin: 05/28/18 12:02 Dose: 150 mls Indomethacin (Indocin) 50 mg OK BIDPRN PRN PRN Reason: Fever > 101 Labetalol HCl (Labetalol Hcl) 20 mg SLOW IVP Q1H PRN PRN Reason: BP > 220/110 Lorazepam (Ativan) 1 mg SLOW IVP Q6H PRN PRN Reason: Anxiety/Agitation Last Admin: 05/28/18 03:35 Dose: 1 mg Metoprolol Tartrate (Lopressor) 5 mg IVP Q6HR [facility] Last Admin: 05/28/18 12:02 Dose: 5 mg Ondansetron HCl (Zofran) 4 mg IVP Q6H PRN PRN Reason: Nausea/Vomiting Pantoprazole Sodium (Protonix) 40 mg IVP DAILY [facility] Last Admin: 05/28/18 09:43 Dose: 40 mg Rosuvastatin Calcium (Crestor) 20 mg PO HS [facility] Last Admin: 05/27/18 20:16 Dose: Not Given Sodium Chloride (Flush - Normal Saline) 10 ml IVF PRN PRN PRN Reason: Saline Flush Warfarin Sodium (Coumadin) 5 mg PO 1700 [facility]
[2018-05-28] MEDS: Rosuvastatin 20 MG TAB PO SCH (21:06)
[2018-05-29 04:26] LABS: #Lymphocytes 0.8 thou/uL (1.20-3.40); #Monocytes 1.2 thou/uL (0.11-0.59); #Neutrophils 17.6 thou/uL (1.40-6.50); %Basophils 0.1 % (0.0-1.0); %Eosinophils 0.2 % (0.0-10.0); %Lymphocytes 4.1 % (21.0-51.0); %Monocytes 6.2 % (0.0-10.0); %Neutrophils 89.4 % (42.0-75.0); Hemoglobin 8.9 g/dL (14.0-18.0); Mean Corpuscular HGB CONC 33.3 g/dL (32.0-36.0); Mean Platelet Volume 6.4 fL (7.4-10.4); Platelet Count 433 thou/uL (130-400); RBC Distribution Width 16.8 % (11.5-14.5); Red Blood Cell (RBC) Count 3.18 mill/uL (4.70-6.10); White Blood Cell (WBC) Count 19.7 thou/uL (4.8-10.8)
[2018-05-29 04:30] LABS: INR-International Normal Ratio 3.4; PTT 78.4 SEC (22.9-36.1)
[2018-05-29 04:46] LABS: ALT (SGPT) 13 U/L (8-55); AST (SGOT) 23 U/L (5-34); Albumin 2.9 g/dL (3.5-5.0); Alkaline Phosphatase 68 U/L (40-150); Anion Gap 14 mmol/L (10-20); BUN (Urea Nitrogen) 12 mg/dL (8.9-20.6); Bilirubin, Total 0.7 mg/dL (0.2-1.2); Calc. Creatinine Clearance 103 mL/min (70-130); Carbon Dioxide 22 mmol/L (22-29); Chloride 103 mmol/L (98-107); Estimated GFR-MDRD Greater than 90; Globulin 3.7 g/dL (2.4-3.5); Glucose 111 mg/dL (70-105); Potassium 3.1 mmol/L (3.5-5.1); Protein, Total 6.6 g/dL (6.0-8.3); Sodium 136 mmol/L (136-145)
[2018-05-29] MEDS: Metoprolol Tartrate 5 MG/5 ML VIAL IVP SCH ×3 (06:00→19:38)
[2018-05-29] MEDS: Sodium Chloride 0.9% 1,000 ML IV SCH ×2 (06:01→20:16)
[2018-05-29] MEDS: Meropenem 2 GM in Sodium Chloride 0.9% 100 ML IVPB SCH (09:34)
[2018-05-29] MEDS: Aspirin 300 MG Suppository PR SCH (09:35)
[2018-05-29] MEDS: Bisacodyl 10 MG SUPP PR SCH (09:35)
[2018-05-29] MEDS: Pantoprazole 40 MG VIAL IVP SCH (09:35)
[2018-05-29 13:43] VITALS: BP 130/97
--- NOTE | 2018-05-29 14:41 | PDOC.PN ---
- Subjective Encounter Start Date: 05/29/18 Encounter Start Time: 14:40 Subjective: Still altered and non verbal. - Objective Resuscitation Status - Order Detail: 05/26/18 00:59 Resuscitation Status Routine Resuscitation Status: DNAR: NO Resuscitation Discussed with: d/w father Mr.Wison Silva Vital Signs & Weight: Vital Signs (12 hours) Temp Pulse Pulse BP BP Pulse Ox Pulse Ox 05/29/18 11:32 98.0 F 05/29/18 11:26 124 H 128 H 130/97 H 122/88 100 05/29/18 08:00 99 05/29/18 07:16 99.9 F H 05/29/18 04:31 98.8 F Pulse Ox 05/29/18 11:32 05/29/18 11:26 100 05/29/18 08:00 05/29/18 07:16 05/29/18 04:31 Weight Admit Weight 114 lb Weight 102 lb 11.2 oz Most Recent Monitor Data Heart Rate from ECG 128 NIBP 127/83 NIBP BP-Mean 97 Respiration from ECG 30 SpO2 100 I&O: 05/28/18 05/29/18 05/30/18 06:59 06:59 06:59 Intake Total 3828 2201 Output Total 2650 2250 Balance 1178 -49 Result Diagrams: 05/29/18 04:14 05/29/18 04:14 Additional Labs: Accuchecks 05/29/18 02:57 POC Glucose 114 H Phys Exam - Physical Examination acutely ill looking male. afebrile to touch. HEENT: PERRLA, moist MMs Neck: supple fair air entry bilaterally with some transmitted sound. tachypneic regukar but tachycardic. systolic murmur and metallic click noted Gastrointestinal: soft, no distention, positive bowel sounds Musculoskeletal: no edema Moving limbs but not in a purposeful fashion Deviation from normal: altered sensorium. somnolent Dx/Plan (1) Sepsis Code(s): A41.9 - SEPSIS, UNSPECIFIED ORGANISM Status: Acute Comment: stenotrophomonas bacteremia currently. was pseudomonas and entorococus previously (2) Aphasia due to acute cerebrovascular accident (CVA) Code(s): I63.9 - CEREBRAL INFARCTION, UNSPECIFIED; R47.01 - APHASIA Status: Acute (3) Acute CVA (cerebrovascular accident) Code(s): I63.9 - CEREBRAL INFARCTION, UNSPECIFIED Status: Acute Comment: Left MCA w R sided paresis (4) Acute non-ST elevation myocardial infarction (NSTEMI) Code(s): I21.4 - NON-ST ELEVATION (NSTEMI) MYOCARDIAL INFARCTION Status: Acute Comment: Demand ischemia from Infective endocarditis (5) Pseudomonal bacteremia Code(s): R78.81 - BACTEREMIA Status: Acute (6) S/P mitral valve replacement Code(s): Z95.2 - PRESENCE OF PROSTHETIC HEART VALVE Status: Chronic (7) S/P splenectomy Status: Chronic (8) S/P bilateral BKA (below knee amputation) Code(s): Z89.512 - ACQUIRED ABSENCE OF LEFT LEG BELOW KNEE; Z89.511 - ACQUIRED ABSENCE OF RIGHT LEG BELOW KNEE Status: Acute (9) Seizure disorder Code(s): G40.909 - EPILEPSY, UNSP, NOT INTRACTABLE, WITHOUT STATUS EPILEPTICUS Status: Chronic (10) Chronic anticoagulation Code(s): Z79.01 - [employer]LYTICS (CURRENT) USE OF ANTICOAGULANTS Status: Chronic (11) Occlusion of left middle cerebral artery Code(s): I66.02 - OCCLUSION AND STENOSIS OF LEFT MIDDLE CEREBRAL ARTERY Status : Acute (12) Cardiomyopathy Code(s): I42.9 - CARDIOMYOPATHY, UNSPECIFIED Status: Acute Qualifiers: Cardiomyopathy type: unspecified Qualified Code(s): I42.9 - Cardiomyopathy , unspecified Comment: Chronic, compensated (13) History of endocarditis Code(s): Z86.79 - PERSONAL HISTORY OF OTHER DISEASES OF THE CIRCULATORY SYSTEM Status: Chronic Comment: Enterococcal fecalis in 2015,needing MVR and AVR and pseudomonas in 2017 (14) Tachycardia Code(s): R00.0 - TACHYCARDIA, UNSPECIFIED Status: Acute (15) S/P aortic valve replacement Code(s): Z95.2 - PRESENCE OF PROSTHETIC HEART VALVE Status: Chronic (16) Acute metabolic encephalopathy Code(s): G93.41 - METABOLIC ENCEPHALOPATHY Status: Acute (17) Infection due to Stenotrophomonas maltophilia Code(s): A49.8 - OTHER BACTERIAL INFECTIONS OF UNSPECIFIED SITE Status: Acute (18) Hypokalemia Code(s): E87.6 - HYPOKALEMIA Status: Acute - Plan Start tube feeding after feeding tube placement -: Continue current antibiotics. -: Heparin discontinue due to high INR -: critically ill with guarded prognosis. -: continue supportive care. Replete serum potassium * .
--- NOTE | 2018-05-29 15:22 | PDOC.EVN ---
Event Note - Event Note Event Note: Discussed medical problems, care plan and prognosis with patients parents at the bedside. Patient had remained unresponsive. They will like to talk with palliative care and hospice care. patient already is DNR. Will consult pallitive and hospice in line with patient's parents wish.
[2018-05-29] MEDS ORDERED: Morphine 4 MG/ML VIAL SLOW IVP PRN (15:24)
[2018-05-29 19:54] VITALS: TEMP 97.9
[2018-05-29] MEDS: Rosuvastatin 20 MG TAB PO SCH (20:16)
--- NOTE | 2018-05-30 15:48 | DIS ---
DATE OF ADMISSION: 05/25/2018 DATE OF DISCHARGE: 05/29/2018 DISCHARGE DIAGNOSES: 1. Severe sepsis. 2. Stenotrophomonas bacteremia. 3. Possible endocarditis. 4. Acute cerebrovascular accident. 5. Acute non-ST elevation myocardial infarction. 6. Acute asphyxia. 7. Acute encephalopathy due to sepsis and cerebrovascular accident. 8. Recent Pseudomonas bacteremia, on treatment. 9. Seizure disorder. 10. Chronic anticoagulation. 11. Occlusion of left middle cerebral artery. 12. Cardiomyopathy. 13. Tachyarrhythmia. 14. Status post aortic valve replacement. 15. Status post mitral valve replacement. 16. Hypokalemia. 17. Unresponsiveness. CONSULTS: 1. Cardiology. 2. Infectious Diseases. 3. Neurology. 4. Pulmonology. HOSPITAL COURSE: A 38-year-old with recreational drug use, complicated with bacteremia associated with endocarditis requiring mitral and aortic valve replacement as well as bilateral knee amputations, who was recently treated for Pseudomonas bacteremia and was discharged to acute rehab for completion of antibiotics. The patient was subsequently found to develop fever and acute asphyxia and was subsequently brought to the hospital. Further evaluation showed features of acute CVA on imaging. The patient was started on broad-spectrum antibiotic therapy. Further evaluation with blood cultures grew Stenotrophomonas. Of note, the patient initially had enterococcus bacteremia and faecalis which was followed by Pseudomonas bacteremia and currently Stenotrophomonas bacteremia. The patient remained agitated and restless initially, but later became unresponsive. He also was noted to be tachycardic. Of note, on presentation, the patient had markedly elevated troponin, which is consistent with acute non-ST elevation myocardial infarction. Given that the patient was not taking by mouth, he was started on anticoagulation with heparin given the mitral and aortic mechanical valves. With the patient not making any improvement, actually deteriorating, I had a discussion with the patient's parents, and they decided to make the patient hospice care only. The patient was subsequently discharged to inpatient hospice care for further treatment. CONDITION AT DISCHARGE: Guarded. Discharge took more than 40 minutes. Job ID: [id number]
== END 2018-05-29 21:08 | disposition hospice, inpatient (51) | DRG 871 ==
LOC: ERS 17:42 → IMCU/EMU 21:50
PROVIDERS: ADMIT Emergency Medicine; ATTEND Emergency Medicine
DX: A41.59 Other Gram-negative sepsis (principal); I63.512 Cerebral infarction due to unspecified occlusion or stenosis of left middle cerebral artery; I21.4 Non-ST elevation (NSTEMI) myocardial infarction; G93.41 Metabolic encephalopathy; R47.01 Aphasia; I42.9 Cardiomyopathy, unspecified; G81.91 Hemiplegia, unspecified affecting right dominant side; G93.49 Other encephalopathy; Z66 Do not resuscitate; Z89.512 Acquired absence of left leg below knee; Z89.511 Acquired absence of right leg below knee; G40.909 Epilepsy, unspecified, not intractable, without status epilepticus; Z79.01 Long term (current) use of anticoagulants; Z90.81 Acquired absence of spleen; Z95.2 Presence of prosthetic heart valve; I50.9 Heart failure, unspecified; E87.6 Hypokalemia; F19.10 Other psychoactive substance abuse, uncomplicated; Z86.73 Personal history of transient ischemic attack (TIA), and cerebral infarction without residual deficits; R29.724 NIHSS score 24; D64.9 Anemia, unspecified
CPT/HCPCS: 36415; 36416; 51702; 70450; 70496; 70498; 71045; 74018; 80048; 80053; 80061; 80306; 81003; 81015; 82550; 82553; 83605; 83735; 84484; 85014; 85018; 85025; 85049; 85610; 85652; 85730; 86140; 87071; 87077; 87086; 87804; 93005; 93010; 93306; 96361; 96365; 96367; 96372; 96375; C9113; J0500; J1580; J1630; J1644; J1885; J1953; J1956; J2060; J2185; J2270; J2405; J2543; J3370; J3480; J7050; Q9967